=== PATIENT | male | born 1980 ===

== ENCOUNTER 2016-11-30 01:59 | Inpatient (IN) ==
[2016-11-30] MEDS ORDERED: THIAMINE INJ 100 MG, FOLIC ACID INJ 1 MG, MAGNESIUM SULF INJ 2 GM, MULTIVITAMIN INJ 10 ... IV ONE (02:03)
[2016-11-30 02:45] LABS: Basophils % 0.1 % (0.0-0.8); Eosinophils % 0.1 % (0.00-10.9); Hematocrit 18.2 VOL% (42.0-52.0); Immature Granulocytes % 0.7 %; Immature Granulocytes Absolute 0.09 #; Lymphocytes # 1.6 10*3/uL (1.4-4.0); Lymphocytes % 11.8 % (21.2-54.2); Mean Corpuscular HGB Conc 33.5 GM/DL (32-36); Mean Corpuscular Hemoglobin 39 PG (27-34); Mean Corpuscular Volume 115.2 FL (87-102); Mean Platelet Volume 10.9 FL (9.6-12.0); Monocytes # 1.8 10*3/uL (0.11-0.8); Monocytes % 12.7 % (1.7-12.7); Neutrophils # 10.3 10*3/uL (1.4-7.4); Neutrophils % 74.6 % (38.7-73.9); Red Blood Count 1.58 MC/CUMM (3.8-5.5); White Blood Count 13.8 T/CUMM (4-12)
[2016-11-30 02:48] LABS: Platelet Count 65 T/CUMM (130-400)
[2016-11-30 02:49] LABS: ABG Base Excess -16.2 MMOL/L (-2.5-2.5); ABG HCO3 11.8 MMOL/L (20-26); ABG TCO2 10.7 MMOL/L (23-27); Allen Test Positive; Pt O2 Delivery Device Ventilator
[2016-11-30 02:52] LABS: Hemoglobin 6.1 GM/DL (14.0-18.0)
[2016-11-30 02:57] LABS: ABG PH 7.185 (7.35-7.45)
[2016-11-30] MEDS ORDERED: ETOMIDATE 20 MG/10 ML VIAL IV ONE (02:57)
[2016-11-30] MEDS ORDERED: VECURONIUM 10 MG VIAL IV ONE ×2 (02:57→04:30)
[2016-11-30] MEDS ORDERED: SODIUM BICARBONATE 50 MEQ/50 ML SYRINGE IV ONE (02:58)
[2016-11-30] MEDS ORDERED: SODIUM BICARBONATE 50 MEQ/50 ML VIAL IV STA (03:00)
--- NOTE | 2016-11-30 03:09 | Emergency Department Note ---
Conor Jimenez Hilary, am scribing for, and in the presence of, Rudi Ballesteros MD 02:28. Lesli Jimenez Charles R, MD, personally performed the services described in this documentation, ascribed by Roberta Perdomo in my presence, and it is both accurate and complete . Arrival - Arrival Chief Complaint: Altered Mental Status Stated Complaint: altered mental status ED Nursing Triage Note: Patient to room via ems. Patient was transfered from [facility] for cirrhosis. Patient's k+ 1.5. patient does have large brusie to right arm and tigh. Mode of Arrival: Stretcher Limitations: Altered Mental Status Source: Family (Mother), RN Notes Reviewed Time Seen by Provider: 11/30/16 02:03 - History of Present Illness HPI Narrative: Pt is a 36 y/o male brought to the ED via EMS from [facility] for c/ o AMS and Cirrhosis. History limited due to patients AMS but pts mother is in the room and states that he called her around 1000 and she called the ambulance around 1999. Pt does have Cirrhosis of the Liver, his mother reports that he quit drinking but started back up again last month. GCS 7, Discussed code with his mother and she states he is full code. Onset (ago): hour(s) Consistency: constant Severity: severe Allergies/Adverse Reactions: Allergies Allergy/AdvReac Type Severity Reaction Status Date / Time No Known Allergies Allergy Verified 11/30/16 02:05 Home Medications: Home Medications Medication Instructions Recorded Confirmed Type Cyanocobalamin Tab [Vitamin B12 1,000 mcg PO DAILY tablet 08/24/16 Rx Tab] Folic Acid Tab 1 mg PO DAILY tablet 08/24/16 Rx Furosemide Tab [Lasix Tab] 40 mg PO DAILY #30 tablet 08/24/16 Rx Lactulose Liquid [Chronulac] 15 gm PO TID #473 ml 08/24/16 Rx Pantoprazole Tab [Protonix Tab] 40 mg PO DAILY #30 tablet 08/24/16 Rx Potassium Chloride Cap/Tab [K Dur] 20 meq PO DAILY #30 tablet 08/24/16 Rx Rifaximin [Xifaxan] 550 mg PO BID #60 tablet 08/24/16 Rx Spironolactone [Aldactone] 25 mg PO BID #30 tablet 03/02/17 Rx Thiamine Tab [Vitamin B1 Tab] 100 mg PO DAILY tablet 08/24/16 Rx Review of System - Review of System ROS unobtainable: due to mental status Medical,Surgical,& Family Hx - Medical History Gastrointestinal: History of: Liver Problems (chronic alcoholic cirrhosis) - Surgical History Orthopedic Surgeries: Surgical HX of;: Orthopedic Surgery (knee surgery) - Social History Smoking Status: Never smoker Frequency of Alcohol Use: None Type of Drug Use: None Exam Vital Signs: Vital Signs Temperature 98.8 F 11/30/16 02:01 Pulse Rate 129 H 11/30/16 02:01 Respiratory Rate 12 11/30/16 02:15 Blood Pressure 129/61 11/30/16 02:01 O2 Sat by Pulse Oximetry 100 11/30/16 02:01 - General Exam limited due to: level of distress General appearance: in distress, other (Pt is altered) - Head Head exam: Present: atraumatic, normocephalic - Eye Eye exam: Present: scleral icterus - ENT ENT exam: Present: mucous membranes dry, TM's normal bilaterally, other (dryed tongue) - Neck Neck exam: Present: full ROM, trachea midline - Chest Chest inspection: Present: symmetric chest wall rise - Respiratory Respiratory exam: Present: normal lung sounds bilaterally - Cardiovascular Cardiovascular exam: Present: tachycardia, normal heart sounds, JVD (in neck) - Abdominal Exam Abdominal exam: Present: soft, distention (nodular in RUQ), hypoactive bowel sounds - Extremities Exam Extremities exam: Present: full ROM, pedal edema (2+ pedal edema) - Back Exam Back exam: Present: full ROM - Neurological Exam Neurological exam: Present: other (GCS of 7 ). Absent: alert, oriented X3 - Psychiatric Psychiatric exam: Present: agitated - Skin Skin exam: Present: warm, dry, intact, normal color, other (Large oval bruise on rt forearm that is old, and hematoma on upper right thigh) Course Course Narrative: Decision to intubate patient was based on the fact that his GCS was less than 8 patient was combative and altered - Consultations Consultation #1: Hospitalist will admit patient Time: 03:07 Procedures - Central Line Placement Left Femoral MD Prep: mask, gown, gloves Central Line Prep: Chlorhexidine scrub Ultrasound Used for Placement: Yes (Line was checked placement is in the vein artery) Central Line Lumen Inserted: triple Post Procedure: sutured in place, good blood return, all ports aspirated, flushed, capped, sterile dressing applied Patient Tolerated Procedure: well Complications: none, hematoma at puncture site - Intubation sedative: Etomidate Mg Given: 20 paralytic: Vecuronium Mg Given: 10 Laryngoscope: fiber optic video scope ET Tube Size: 7.5 ET Tube Uncuffed: No Tube Secured Depth (cm): 23 Tube Secured Location: lips Tube Placement Confirmation: visualized tube passing through cords, equal breath sounds bilaterally, confirmation detector color change Patient Tolerated Procedure: well, no complications Intubation Complications: none Results - Labs CBC & BMP: 11/30/16 02:30 11/30/16 02:30 Lab Results: I have reviewed the patients labs Labs: Laboratory Tests 11/30/16 11/30/16 02:30 02:40 WBC 13.8 H RBC 1.58 L Hct 18.2 L MCV 115.2 H MCH 39 H Plt Count 65 L Neut % (Auto) 74.6 H Lymph % (Auto) 11.8 L Neut # (Auto) 10.3 H [place] # (Auto) 1.8 H ABG pH 7.185 L* ABG pCO2 29.0 L ABG pO2 235.0 H ABG HCO3 11.8 L ABG Total CO2 10.7 L ABG Base Excess -16.2 L Critical Care Time Total Critical Care Time: 60 Disposition Clinical Impression: Altered mental status, Jaundice, acholuric, Cirrhosis of liver, Thrombocytopenia, Coagulopathy, Symptomatic anemia, Hepatic encephalopathy syndrome, Jaundice, End stage liver disease, Metabolic acidosis Case discussed with: patient, patient's family Disposition: Still a Patient Condition: Critical Time of Disposition: 03:09
[2016-11-30 03:10] LABS: PT Patient Result 34.3 SECS
[2016-11-30 03:19] LABS: Alanine Aminotransferase 43 U/L (16-61); Albumin 2.2 G/DL (3.4-5.0); Alkaline Phosphatase 165 U/L (45-117); Aspartate Amino Transferase 71 U/L (0-37); Blood Urea Nitrogen 8 MG/DL (7-18); Glucose 147 MG/DL (74-106); Magnesium 2.1 MG/DL (1.8-2.4); Sodium 136 MMOL/L (136-145); Total Protein 7.1 G/DL (6.4-8.3)
[2016-11-30 03:21] LABS: Troponin I Only 0.078 NG/ML (0.00-0.045)
[2016-11-30 03:23] LABS: Ammonia 292 UMOL/L (11-32); Potassium 1.8 MMOL/L (3.5-5.1)
[2016-11-30 03:26] LABS: Apearance,Urine Slightly Hazy (Clear); B-Type Natriuretic Peptide 32 PG/ML (2-100); Bacteria,Urine Occasional /HPF (Few); Blood, Urine Moderate mg/dL (Negative); Glucose,Urine (UA) Negative (Negative); Granular Casts,Urine 15 /LPF (0-1); Hyaline Casts,Urine 32 /LPF (0-3); Ketones,Urine Negative (Negative); Mucus,Urine Occasional /LPF (Occasional); Nitrite,Urine Negative (Negative); Protein,Urine 30 MG/DL; RBC,Urine 11 /HPF (0-4); Squamous Epithelial Cell,Urine Occasional /HPF (0-10); Urine Color Amber (Yellow); Urine Specific Gravity 1.014 (1.001-1.035); WBC,Urine 3 /HPF (0-6)
[2016-11-30 03:28] LABS: Bilirubin,Urine Moderate mg/dL (Negative)
[2016-11-30] MEDS ORDERED: SODIUM CHLORIDE 0.9% 1,000 ML IV STA (03:37)
[2016-11-30 03:54] LABS: Barbiturates Screen,Urine Negative (Negative); Benzodiazepines Screen,Urine Negative (Negative); Cannabinoid Screen,Urine Negative (Negative); Opiate Screen,Urine Negative (Negative); Phencyclidine Screen,Urine Negative (Negative)
--- NOTE | 2016-11-30 04:01 | Hospitalist History & Physical ---
Assessment and Plan (1) Hypokalemia Status: Acute Current Visit: Yes (2) Altered mental status Status: Acute Current Visit: Yes (3) End stage liver disease Status: Acute Current Visit: Yes (4) Hepatic encephalopathy Status: Acute Current Visit: Yes (5) Jaundice Status: Acute Current Visit: Yes (6) Jaundice, acholuric Status: Acute Current Visit: Yes (7) Metabolic acidosis Status: Acute Current Visit: Yes (8) Thrombocytopenia Status: Acute Current Visit: Yes (9) Cirrhosis of liver Status: Chronic Assessment and plan: Patient is a critically ill patient. We will need to replete his potassium give him some bicarb. Provide him with fluids. Transfuse him with FFP. He has a mild bump in his creatinine. His total bili though has gone down from 3 months ago. Ammonia levels are really elevated. I am unsure if this patient has varices. Reluctant to have a NG tube placed will need to use lactulose enemas. I do consider the likelihood of him surviving this hospitalization low. I informed his mother of that. Will need to transfuse and monitor his blood counts. Will consult both GI and pulmonary for their support Current Visit: Yes Qualifiers: Hepatic cirrhosis type: alcoholic cirrhosis History of Present Illness Chief complaint: Altered mental status History of present illness: Mr. Mariscal is a 36 year old male with past medical history significant for liver cirrhosis from alcohol abuse presents as a transfer from [facility]. Patient was diagnosed with liver cirrhosis approximately 3 years ago. Patient has drank off and on during this time. Patient's mother reports that he has not had in the past month. Patient's mother reports that he was fine on Sunday. He was his normal self there have been no problems. Then Sunday she said that she noted that he was texting her and not making any sense. She gave him a call and he was confused. She called EMS. When they got there his confusion seemed to be doing okay. She gave him some lactulose and he did not want to go to [facility] and they left. She had to go on to work. She told him to drink some more lactulose. When she got home it was apparent that he was even more confused. EMS was called this time and he was taken up [facility]. When they were treating him at [facility] he became combative and was given Haldol. He rates our hospital. He was pretty much sedated. In order to protect his airway he was placed on the ventilator and intubated by the ER physician. Home Medications Medication Instructions Recorded Confirmed Type Cyanocobalamin Tab [Vitamin B12 1,000 mcg PO DAILY tablet 08/24/16 Rx Tab] Folic Acid Tab 1 mg PO DAILY tablet 08/24/16 Rx Furosemide Tab [Lasix Tab] 40 mg PO DAILY #30 tablet 08/24/16 Rx Lactulose Liquid [Chronulac] 15 gm PO TID #473 ml 08/24/16 Rx Pantoprazole Tab [Protonix Tab] 40 mg PO DAILY #30 tablet 08/24/16 Rx Potassium Chloride Cap/Tab [K Dur] 20 meq PO DAILY #30 tablet 08/24/16 Rx Rifaximin [Xifaxan] 550 mg PO BID #60 tablet 08/24/16 Rx Spironolactone [Aldactone] 25 mg PO BID #30 tablet 08/24/16 Rx Thiamine Tab [Vitamin B1 Tab] 100 mg PO DAILY tablet 08/24/16 Rx Allergies Allergy/AdvReac Type Severity Reaction Status Date / Time No Known Allergies Allergy Verified 11/30/16 02:05 Medical,Surgical,& Family Hx - Medical History Gastrointestinal: History of: Liver Problems (chronic alcoholic cirrhosis) - Surgical History Orthopedic Surgeries: Surgical HX of;: Orthopedic Surgery (knee surgery) - Family History Family History: Reports;: Family Diabetes - Social History Smoking Status: Never smoker Frequency of Alcohol Use: Occasionally Type of Drug Use: None ROS unobtainable: due to mental status Exam - Constitutional Vitals: Period Temp Pulse Resp BP Sys/Cotto Pulse Ox Last 24 Hr 98.8 F-98.8 F 129-129 12-24 129-129/61-61 100 - General General appearance: Patient is is altered and on the ventilator - Head Head exam: Present: atraumatic, normocephalic - Eye Eye exam: Present: scleral icterus pupils sluggish - ENT ENT exam: Present: mucous membranes dry, TM's normal bilaterally, ET-tube in place - Neck Neck exam: Present: full ROM, trachea midline - Chest Chest inspection: Present: symmetric chest wall rise - Respiratory Respiratory exam: Present: normal lung sounds bilaterally - Cardiovascular Cardiovascular exam: Present: tachycardia, normal heart sounds, JVD (in neck) - Abdominal Exam Abdominal exam: Present: soft, distention ,hypoactive bowel sounds - Extremities Exam Extremities exam: Present: full ROM, pedal edema (2+ pedal edema) - Back Exam Back exam: Present: full ROM - Neurological Exam Neurological exam: Present: Unable to assess - Psychiatric Psychiatric exam: Present: agitated - Skin Skin exam: Present: warm, dry, intact, normal color, other various bruising of various stages were noted Results - Labs CBC & BMP: 11/30/16 02:30 11/30/16 02:30
[2016-11-30] MEDS ORDERED: ALBUTEROL 2.5 MG/3 ML NEB RESP TX PRN (04:09)
[2016-11-30] MEDS ORDERED: SODIUM CHLORIDE 0.9% 250 ML IV PRN (04:09)
[2016-11-30] MEDS ORDERED: VECURONIUM 10 MG VIAL IV STA (04:32)
[2016-11-30 04:34] LABS: Burr Cells 4+; Platelet Estimate Decreased; Polychromasia Few
[2016-11-30] MEDS ORDERED: SODIUM CHLORIDE 0.9% 500 ML IV STA (04:38)
[2016-11-30] MEDS ORDERED: SODIUM BICARB INJ 150 MEQ in STERILE WATER INJ 850 ML IV SCH (05:00)
--- NOTE | 2016-11-30 05:14 | EKG Report ---
Stationary ECG Study [facility] ER Test Date: 11/30/2016 3:55:16 AM Pat Name: GHASSAN BYRNES Department: Room: Gender: M Climatologist: : 1980 Requested by: Rudi Camejo Order Number: [id number] Reading MD: AYAZ AGUSTIN Intervals [place] Rate: 120 P: 3 [place]: 101 QRS: 68 QRSD: 102 T: -69 QT: 357 QTc: 428 Interpretive Statements SINUS TACHYCARDIA WITH SHORT IL INTERVAL POSSIBLE INFERIOR MYOCARDIAL INFARCTION, OF INDETERMINATE AGE WITH POSTERIOR EXTENSION MODERATE T-WAVE ABNORMALITY, CONSIDER ANTEROLATERAL ISCHEMIA Electronically Signed On 11-30-16 16:11:23 CDT by AYAZ AGUSTIN [email or web address]
[2016-11-30 05:48] LABS: Prolactin 99.9 NG/ML
[2016-11-30] MEDS ORDERED: POTASSIUM CHLORIDE RIDER 10 MEQ in PREMIX 1 EACH IV SCH ×2 (06:00→10:00)
[2016-11-30] MEDS ORDERED: POTASSIUM CHLORIDE RIDER 200 ML IV ONE (06:10)
--- NOTE | 2016-11-30 06:25 | CT Report ---
CT head/brain wo con Indication: Mental status changes Comparison: None Technique: Multiple axial tomographic images of the brain were obtained without the use of intravenous contrast. Findings: Midline structures are nondisplaced. There is no evidence of acute intracranial hemorrhage or hydrocephalus. Mild global volume loss present. Mild periventricular and subcortical hypoattenuation noted which is nonspecific. Considerations include demyelinating process, chronic microvascular ischemic change, and vasculitis. Small fluid within the right maxillary sinus as well as significant opacification of the right sphenoid and frontal sinuses. IMPRESSION: Paranasal sinus disease with small fluid within the right maxillary sinus which could reflect an acute component. No definite acute abnormality otherwise. Mild global volume loss which is considered advanced for patient age. Mild periventricular and subcortical hypoattenuation noted which is nonspecific. Considerations include demyelinating process, chronic microvascular ischemic change, and vasculitis. Preliminary report was issued by [facility]. The CT exam was performed using one or more of the following dose reduction techniques: Automated exposure control, adjustment of the mA and/or kV according to patient size, or use of iterative reconstruction technique. PROCEDURE INTERPRETED AT [facility] DEPARTMENT OF RADIOLOGY Final Report Signed by: Dr Raheem Miller
[2016-11-30 07:23] LABS: ABG Base Excess -7.8 MMOL/L (-2.5-2.5); ABG PCO2 31.2 MM HG (35-48); ABG PH 7.348 (7.35-7.45); ABG TCO2 16.4 MMOL/L (23-27); Pt O2 Delivery Device Ventilator
[2016-11-30] MEDS: POTASSIUM CHLORIDE RIDER 20 MEQ in PREMIX 1 EACH IV SCH ×6 (07:23→22:50)
--- NOTE | 2016-11-30 07:23 | XRay Report ---
XR femur RT Indication: Hematoma/contusion Comparison: None Technique: Frontal and lateral views of the right femur Findings: No acute fracture or dislocation demonstrated. Postsurgical change consistent with right ACL repair demonstrated. Mild tricompartmental degenerative change of the knee present. IMPRESSION: As above. PROCEDURE INTERPRETED AT [facility] DEPARTMENT OF RADIOLOGY Final Report Signed by: Dr Raheem Miller
[2016-11-30] MEDS: LACTULOSE 160 GM/240 ML BOTTLE RECTAL SCH ×3 (07:24→22:30)
--- NOTE | 2016-11-30 07:34 | XRay Report ---
XR forearm RT Indication: Contusion Comparison: None Technique: Frontal and lateral views of the right forearm Findings: No acute fracture or dislocation demonstrated. Linear lucency demonstrated within the cortex of the distal ulnar diaphysis which measures approximately 1 cm most likely reflects a benign bone lesion as this has a nonaggressive appearance. IMPRESSION: As above. PROCEDURE INTERPRETED AT [facility] DEPARTMENT OF RADIOLOGY Final Report Signed by: Dr Raheem Miller
--- NOTE | 2016-11-30 07:45 | Hospitalist Progress Note ---
Hospitalist: Subjective Interval history: Patient blood pressure is dropping and has been started on Levophed. He is currently receiving his second blood unit of blood out of 4 ordered units. Patient is encephalopathic still. His temperature has dropped and he has been placed on heating blanket. Exam - Constitutional Vitals: Period Temp Pulse Resp BP Sys/Cotto Pulse Ox Last 24 Hr 96.0 F-98.8 F 96-129 12-24 59-129/18-61 100-100 Exam: General :intubated and sedated. Chronically ill-appearing HEENT :pupils are reactive to light and equal, icteric sclera noted, ET tube in place so unable to visualize his posterior oropharynx; Nares are patent no discharge or epistaxis noted; Neck: Supple no lymphadenopathy or JVD noted Cardiovascular: Tachycardic but regular rhythm, 1/6 systolic murmur Lungs: Mostly clear anteriorly of upper lobes with scattered rhonchi, nonlabored Abdomen: Soft, distended, hypoactive bowel sounds, difficult to assess for hepatosplenomegaly or masses given his body habitus EXT: Warm and well-perfused without any clubbing or cyanosis. He is starting to get trace edema diffusely Neuro: Unable to fully assess given the sedation Results - Labs CBC & BMP: 11/30/16 02:30 11/30/16 11:24 - Impressions (1) Acute metabolic encephalopathy possibly due to hyperammonemia (hepatic encephalopathy) +/- possibly due to seizures Status: Acute Current Visit: Yes - 11/30 CT head showed paranasal sinus disease with small fluid within the right maxillary sinus which could reflect an acute component. No definite acute abnormality otherwise. Mild global volume loss which is considered advanced for patient age. Mild periventricular and subcortical hypoattenuation noted which is nonspecific. Considerations include demyelinating process, chronic microvascular ischemic change, and vasculitis. - Prolactin was 99. RPR was not reactive - Neuro checks - Neurology consult if no improvement with correction of metabolic issues - on lactulose rectally. Monitor ammonia levels (2) Acute hypoxic respiratory failure -Vent support. Bronchodilators. Pulm to see. Serial CXR and ABG (3) Hypokalemia Status: Acute Current Visit: Yes - replacing. Mg and Phos are normal - Monitor on telemetry (4) End stage liver disease/ cirrhosis Status: Acute Current Visit: Yes - GI to see. Receiving FFP (5) Metabolic acidosis Status: Acute Current Visit: Yes -bicarbonate drip ordered. Check lactic acid (7) Thrombocytopenia suspected due to liver disease Status: Acute Current Visit: Yes - transfuse as needed. Check DIC panel; check haptoglobin and LDH r/o TTP (8) Profound anemia likely due to chronic disease and sequestration Status: Chronic - transfusing. Recheck (9) Shock- ? hepatorenal syndrome vs. sepsis vs. obstructive vs. cardiogenic - start Levophed. Check cortisol level. Check Blood cultures, urine cultures and sputum cultures. Start empiric antibiotics. ppx: PPI/ SCDS Discussed with nurse. I have spent 44 minutes with this patient.
--- NOTE | 2016-11-30 07:46 | XRay Report ---
XR chest 1V portable Indication: Altered mental status Comparison: Chest x-ray dated November 29, 2016 Technique: Single frontal view of the chest. Findings: Endotracheal tube tip at the clavicular level. The cardiomediastinal silhouette is stable in configuration. Low lung volumes with bronchovascular crowding. Mild bibasilar atelectasis. Visualized osseous and surrounding soft tissue structures appear grossly unchanged. IMPRESSION: As above. PROCEDURE INTERPRETED AT [facility] DEPARTMENT OF RADIOLOGY Final Report Signed by: Dr Raheem Miller
[2016-11-30] MEDS ORDERED: POTASSIUM CHLORIDE RIDER 100 ML IV ONE (08:16)
[2016-11-30] MEDS: PANTOPRAZOLE 40 MG VIAL IV SCH ×2 (08:51→22:30)
[2016-11-30] MEDS: NOREPINEPHRINE 8 MG in SODIUM CHLORIDE 0.9% 242 ML IV SCH ×2 (09:49→16:43)
[2016-11-30 10:28] LABS: Phosphorous 3.4 MG/DL (2.5-4.9)
[2016-11-30 10:34] LABS: Potassium 1.9 MMOL/L (3.5-5.1)
--- NOTE | 2016-11-30 10:38 | Pulmonology Consult Note ---
History of Present Illness Chief complaint: Mechanical ventilation. Hepatic coma. Anemia History of present illness: Mr. Mariscal is a 36 year old male. I been asked to see him in pulmonary consultation for management of mechanical ventilation and pulmonary problems. This patient was admitted with severe anemia and altered mental status hepatic encephalopathy and a number of other problems. He required intubation mechanical ventilation. Chest x-ray 11/30/2016. My interpretation. Heart is in the mid range in size. Pulmonary arteries are top normal in size are benign calcifications both hilar areas mediastinum is probably normal endotracheal tube is in good position. There are increased interstitial markings in the medial posterior basal segment of the right lower lung and in the posterior basal segment of the left lower lung. There is slight perihilar fullness. Suctioned through the endotracheal tube so far has revealed nothing to suggest gastric contents but this is a real possibility. The patient is comatose. Because of this the remainder of history of review of systems is negative. Allergies. None Home medicines. See below Past history. Chronic alcoholic cirrhosis. Previous knee surgery. History of anemia. History of abdominal wall muscle hematoma. History of ascites. Alcoholism. Family history. Positive for diabetes Social history. History of alcohol abuse. ABGs. Mechanical ventilation. FiO2 50%. PH is 7.35. PCO2 is 31.2. PO2 is 222. Bicarb is 18. Lab. Potassium was low at 1.8. Sodium and chloride are normal. Magnesium is normal. Creatinine is 2.90 with a BUN of 8. H&H is 6.1/18.2 with elevated indices. White count is 13,865 611 lymphs and 13 monos. Platelets are 65,000. Total bilirubin is 9.4. Alkaline [place] is elevated 165. AST is elevated at 71. ALT is normal at 43. Ammonia level is 292. Natruretic peptide is 32. Urinalysis shows no evidence of infection. Toxicology. Neck Serology. Negative for hepatitis a hepatitis B hepatitis C and syphilis Physical exam. Vital signs. See below. Neurologic. Comatose. Face is symmetrical. Lips and tongue are probably normal. Neck. Symmetrical. No meningismus. Lymphatics. No submandibular cervical supraclavicular or epitrochlear adenopathy. Chest. Coarse large airway congestion. Heart. No gallop. Abdomen. Nondistended. Only rare bowel sounds Lower extremities. Chronic edema. The remainder the physical exam is negative. Impression. 1. Alcoholic cirrhosis of the liver with acute on chronic liver failure resulting in altered mental status 2. Severe anemia. Note past history of B12 deficiency 3. Hypo-Tara anemia. 4. History of alcoholism 5. Thrombocytopenia 6. See past history Plan. 1. Mechanical ventilation with weaning protocol and physical therapy protocol 2. Daily chest x-ray and ABGs. 3. Daily lab 4. See orders Home Medications Medication Instructions Recorded Confirmed Type Cyanocobalamin Tab [Vitamin B12 1,000 mcg PO DAILY tablet 08/24/16 Rx Tab] Folic Acid Tab 1 mg PO DAILY tablet 08/24/16 Rx Furosemide Tab [Lasix Tab] 40 mg PO DAILY #30 tablet 08/24/16 Rx Lactulose Liquid [Chronulac] 15 gm PO TID #473 ml 08/24/16 Rx Pantoprazole Tab [Protonix Tab] 40 mg PO DAILY #30 tablet 08/24/16 Rx Potassium Chloride Cap/Tab [K Dur] 20 meq PO DAILY #30 tablet 08/24/16 Rx Rifaximin [Xifaxan] 550 mg PO BID #60 tablet 08/24/16 Rx Spironolactone [Aldactone] 25 mg PO BID #30 tablet 08/24/16 Rx Thiamine Tab [Vitamin B1 Tab] 100 mg PO DAILY tablet 08/24/16 Rx Allergies Allergy/AdvReac Type Severity Reaction Status Date / Time No Known Allergies Allergy Verified 11/30/16 02:05 Exam (Pulmonay) H&P - Constitutional Vitals: Period Temp Pulse Resp BP Sys/Cotto Pulse Ox Last 24 Hr 95.1 F-98.8 F 96-129 12-24 59-129/18-61 100-100 Medical,Surgical,& Family Hx - Medical History Gastrointestinal: History of: Liver Problems (chronic alcoholic cirrhosis) Musculoskeletal: History of: Back/Neck Problems - Surgical History Orthopedic Surgeries: Surgical HX of;: Orthopedic Surgery (knee surgery) - Family History Family History: Reports;: Family Diabetes (mother) - Social History Smoking Status: Never smoker Frequency of Alcohol Use: Occasionally Type of Drug Use: None Results - Labs CBC & BMP: 11/30/16 02:30 11/30/16 02:30
[2016-11-30] MEDS: POTASSIUM CHLORIDE RIDER 20 MEQ in PREMIX 1 EACH IV PRN ×4 (10:40→15:54)
--- NOTE | 2016-11-30 11:15 | Gastrointestinal Consult Note ---
<Lucrecia Alvarado - Last Filed: 11/30/16 11:09> Assessment and Plan (1) Cirrhosis of liver Status: Chronic Assessment and plan: 11/30-admitted with altered mental status, history of alcoholic cirrhosis. Findings of thrombocytopenia, anemia, and hypokalemia on admission. On ventilator and sedation at this time. Received total of 3 units of packed red blood cells and to be transfused fresh frozen plasma. Plan an addendum to follow by Dr. Duarte. Current Visit: Yes Qualifiers: Hepatic cirrhosis type: alcoholic cirrhosis History of Present Illness Chief complaint: Altered mental status History of present illness: Mr. Mariscal is a 36 year old male who was admitted to the hospital early this morning after transfer from [facility] with reports of altered mental status. Patient is unable to provide any information and no family available at time of visit. Information is obtained from chart review. Patient reportedly was doing well on Sunday however patient's mother states she began receiving text messages from him on yesterday that did not make sense. When she called him on the phone he was noted to be confused and she called the ambulance. Patient was doing better once EMS arrived and did not want to be transported. Patient's mother went back to work however when she returned home he was more confused and EMS returned and transferred patient to [facility]. At that time patient was very combative and was given Haldol in which he became very sedated and required intubation. Upon arrival to our facility he was found to have metabolic acidosis, hypokalemia, thrombocytopenia, and severe anemia. He has a history of alcoholic cirrhosis in which he was diagnosed 3 years ago. According to the record, patient continued to drink off and on since diagnosis but stopped over the past month. On admission patient was found to have a hemoglobin of 6.1, platelet count 65, potassium 1.8, bilirubin 9.4, ammonia at 292, albumin 2.2, INR 3.0. He was last seen in our facility in August of this year with symptomatic anemia however it was felt to be related to a fall and findings of abdominal wall hematoma. He received 9 units of packed cells and 6 units of fresh frozen during that hospital stay. Patient is noted to take Aldactone, Lasix, Xifaxan and Chronulac at home however uncertain as to his compliance with these medications. Home Medications Medication Instructions Recorded Confirmed Type Cyanocobalamin Tab [Vitamin B12 1,000 mcg PO DAILY tablet 08/24/16 Rx Tab] Folic Acid Tab 1 mg PO DAILY tablet 08/24/16 Rx Furosemide Tab [Lasix Tab] 40 mg PO DAILY #30 tablet 08/24/16 Rx Lactulose Liquid [Chronulac] 15 gm PO TID #473 ml 08/24/16 Rx Pantoprazole Tab [Protonix Tab] 40 mg PO DAILY #30 tablet 08/24/16 Rx Potassium Chloride Cap/Tab [K Dur] 20 meq PO DAILY #30 tablet 08/24/16 Rx Rifaximin [Xifaxan] 550 mg PO BID #60 tablet 08/24/16 Rx Spironolactone [Aldactone] 25 mg PO BID #30 tablet 08/24/16 Rx Thiamine Tab [Vitamin B1 Tab] 100 mg PO DAILY tablet 08/24/16 Rx Allergies Allergy/AdvReac Type Severity Reaction Status Date / Time No Known Allergies Allergy Verified 11/30/16 02:05 Medical,Surgical,& Family Hx - Medical History Gastrointestinal: History of: Liver Problems (chronic alcoholic cirrhosis) Musculoskeletal: History of: Back/Neck Problems - Surgical History Orthopedic Surgeries: Surgical HX of;: Orthopedic Surgery (knee surgery) - Family History Family History: Reports;: Family Diabetes (mother) - Social History Smoking Status: Never smoker Frequency of Alcohol Use: Occasionally Type of Drug Use: None ROS unobtainable: due to endotracheal tube Exam - Constitutional Vitals: Period Temp Pulse Resp BP Sys/Cotto Pulse Ox Last 24 Hr 94.8 F-98.8 F 96-129 12-24 59-129/18-61 100-100 General appearance: normal weight, no acute distress - Head Head exam: Present: normal inspection, normocephalic - Eye Eye exam: Present: scleral icterus, other (Lids and conjunctive are unremarkable ) - ENT ENT exam: Present: normal exam, normal oropharynx - Neck Neck exam: Present: normal inspection - Respiratory Respiratory exam: Present: clear to auscultation bilaterally. Absent: rales, rhonchi, wheezes - Cardiovascular Cardiovascular exam: Present: regular rate and rhythm. Absent: diastolic murmur , JVD, systolic murmur - GI/Abdominal GI/Abdominal exam: Present: normal bowel sounds, soft. Absent: ascites, distended, mass, organomegaly, tenderness - Extremities Exam Extremities exam: Present: normal inspection - Back Exam Back exam: Present: normal inspection - Neurological Exam Neurological exam: Present: altered - Psychiatric Psychiatric exam: Present: other - Skin Skin exam: Present: other (Jaundice) Results - Labs CBC & BMP: 11/30/16 02:30 11/30/16 09:37 Lab Results: I have reviewed the past 24 hour labs <Luke Duarte - Last Filed: 11/30/16 18:57> History of Present Illness History of present illness: Mr. Mariscal is a 36 year old male Exam - Constitutional Vitals: Period Temp Pulse Resp BP Sys/Cotto Pulse Ox Last 24 Hr 92.9 F-141 F 96-146 12-24 59-129/18-77 100-100 Results - Labs CBC & BMP: 11/30/16 15:30 11/30/16 11:24
[2016-11-30] MEDS: ALBUMIN 25% 25 GM in PREMIX 1 EACH IV SCH ×2 (11:29→19:41)
[2016-11-30] MEDS: LORazepam INJ 40 MG in DEXTROSE 5% 30 ML IV SCH ×2 (11:43→23:32)
[2016-11-30 12:04] LABS: Albumin 1.6 G/DL (3.4-5.0); Calcium 7.1 MG/DL (8.5-10.1); Phosphorous 3.2 MG/DL (2.5-4.9)
[2016-11-30 12:06] LABS: Potassium 2.5 MMOL/L (3.5-5.1)
[2016-11-30] MEDS ORDERED: VANCOMYCIN INJ 1,500 MG in SODIUM CHLORIDE 0.9% 500 ML IV ONE (15:00)
[2016-11-30 15:16] LABS: Haptoglobin < 31.0 MG/DL (30-200)
[2016-11-30 15:47] LABS: Apearance,Urine CLOUDY (Clear); Blood, Urine Large mg/dL (Negative); Glucose,Urine (UA) Negative (Negative); Ketones,Urine Negative (Negative); Mucus,Urine Many /LPF (Occasional); Nitrite,Urine Negative (Negative); Protein,Urine 100 MG/DL; RBC,Urine 370 /HPF (0-4); Squamous Epithelial Cell,Urine Occasional /HPF (0-10); Urine Color Amber (Yellow); Urine Specific Gravity 1.018 (1.001-1.035); WBC,Urine 1650 /HPF (0-6)
[2016-11-30 15:48] LABS: Bilirubin,Urine Small mg/dL (Negative)
[2016-11-30] MEDS: DOPamine 800 MG/250 ML PREMIX IV SCH ×2 (15:56→17:18)
[2016-11-30 16:10] LABS: INR 2.9
[2016-11-30 16:14] LABS: PT Patient Result 32.6 SECS
[2016-11-30 16:15] LABS: Fibrinogen Quant Value < 50 MG% (200-400)
[2016-11-30 16:29] LABS: Hematocrit 18.8 VOL% (42.0-52.0); Hemoglobin 6.7 GM/DL (14.0-18.0)
[2016-11-30] MEDS: PIPERACILLIN/TAZOBACTAM 3,375 MG in SODIUM CHLORIDE 0.9% 100 ML IV SCH ×2 (16:36→22:48)
[2016-11-30] MEDS ORDERED: NOREPINEPHRINE 4 MG/4 ML VIAL IV ONE (16:39)
--- NOTE | 2016-11-30 17:04 | Cardiology Consult Note ---
Assessment and Plan - Time spent with patient Time spent with patient: Greater than 30 minutes (1) Elevated troponin Status: Acute Assessment and plan: SEE PLAN OF CARE LISTED BELOW Current Visit: Yes (2) Murmur, cardiac Status: Acute Assessment and plan: SEE PLAN OF CARE LISTED BELOW Current Visit: Yes (3) Hematoma of abdominal wall Status: Acute Assessment and plan: SEE PLAN OF CARE LISTED BELOW Current Visit: No Qualifiers: Encounter type: initial encounter Qualified Code(s): S30.1XXA - Contusion of abdominal wall, initial encounter (4) Jaundice, acholuric Status: Acute Assessment and plan: SEE PLAN OF CARE LISTED BELOW Current Visit: Yes (5) Symptomatic anemia Status: Acute Assessment and plan: SEE PLAN OF CARE LISTED BELOW Current Visit: Yes (6) Cirrhosis of liver Status: Chronic Assessment and plan: SEE PLAN OF CARE LISTED BELOW Current Visit: Yes Qualifiers: Hepatic cirrhosis type: alcoholic cirrhosis (7) Thrombocytopenia Status: Acute Assessment and plan: SEE PLAN OF CARE LISTED BELOW Current Visit: Yes (8) Coagulopathy Status: Acute Assessment and plan: SEE PLAN OF CARE LISTED BELOW Current Visit: Yes (9) Altered mental status Status: Acute Assessment and plan: SEE PLAN OF CARE LISTED BELOW Current Visit: Yes (10) End stage liver disease Status: Acute Assessment and plan: SEE PLAN OF CARE LISTED BELOW Current Visit: Yes (11) Hypokalemia Status: Acute Assessment and plan: SEE PLAN OF CARE LISTED BELOW Current Visit: Yes History of Present Illness - Data of Consult Patient: new to practice Consult date: 11/30/16 Requesting Physician: Makenna Bowie - Consult Narrative Reason for consult: Elevated troponin History of present illness: 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 GRAY Patient is being seen in the CCU. He is intubated, sedated. The majority of this information is taken from staff and medical records as there is no family present. Mr. Mariscal, 36ChM, without a known history of cardiac disease, never having seen a stucco worker prior to this admission. Past medical history includes liver cirrhosis from alcohol abuse. Patient presented to the emergency department at [facility] November 30, 2016 with altered mental status. Apparently, patient was diagnosed with liver cirrhosis approximately 3 years ago. He has been drinking on and off during this time. Patient's mother reports he has not been drinking in the past month. She had been communicating with her son via text when he began "not make sense." Eventually, patient was taken to [facility] where he became combative and was given Haldol. When he arrived to our institution, he was intubated in order to protect his airway. Patient is critically ill. He is coagulopathic and receiving FFP this time. He is anemic with a hemoglobin and hematocrit of 6.7 and 18.8 respectively. Platelet count is 54. Initially, potassium was 1.8 and he is on the potassium replacement protocol. Most recent potassium is 2.5. Ammonia levels are elevated. NG tube is being avoided as the patient may have varices. Troponin is noted to be 0.078 and 0.140. EKG is abnormal but does not reflect STEMI. At this time, will continue to monitor the patient closely. Due to the patient' s critically ill state, he is not a candidate for invasive workup. I will order an echocardiogram for tomorrow as the patient does have a murmur. Otherwise, we have little to add at this time. ASSESSMENT/PLAN: 1. CIRRHOSIS OF LIVER - continue current plan of care. 2. AMS - continue current plan of care 3. ANEMIA - following hemoglobin and hematocrit closely. Currently receiving transfusion 4. THROMOBOCYTOPENIA - continue to monitor platelet count close 5. COAGULOPATHIC STATE - multiple areas bleeding. Hematomas noted bilaterally in both groins. Obviously, not a candidate for anticoagulation such as Lovenox or aspirin. 6. HYPOKALEMIA - currently on the potassium replacement protocol. 7. ALCOHOLISM - continue current plan of care 8. CARDIAC MURMUR - echo tomorrow if the patient survives the night 9. RENAL FAILURE - uncertain if this is acute on chronic however he is currently stage III. 10. ELEVATED TROPONIN -we will follow this routinely. He is not a candidate for invasive workup due to his multiple comorbidities. Continue current plan of care. CC: Makenna Bowie MD - Home Medications and Allergies Home Medications: Home Medications Medication Instructions Recorded Confirmed Type Cyanocobalamin Tab [Vitamin B12 1,000 mcg PO DAILY tablet 08/24/16 Rx Tab] Folic Acid Tab 1 mg PO DAILY tablet 08/24/16 Rx Furosemide Tab [Lasix Tab] 40 mg PO DAILY #30 tablet 08/24/16 Rx Lactulose Liquid [Chronulac] 15 gm PO TID #473 ml 08/24/16 Rx Pantoprazole Tab [Protonix Tab] 40 mg PO DAILY #30 tablet 08/24/16 Rx Potassium Chloride Cap/Tab [K Dur] 20 meq PO DAILY #30 tablet 08/24/16 Rx Rifaximin [Xifaxan] 550 mg PO BID #60 tablet 08/24/16 Rx Spironolactone [Aldactone] 25 mg PO BID #30 tablet 08/24/16 Rx Thiamine Tab [Vitamin B1 Tab] 100 mg PO DAILY tablet 08/24/16 Rx Allergies/Adverse Reactions: Allergies Allergy/AdvReac Type Severity Reaction Status Date / Time No Known Allergies Allergy Verified 11/30/16 02:05 ROS unobtainable: due to endotracheal tube, due to mental status Medical,Surgical,& Family Hx - Medical History Cardio: No history of: CAD, Hypertension, DE Gastrointestinal: History of: Liver Problems (chronic alcoholic cirrhosis) Musculoskeletal: History of: Back/Neck Problems - Surgical History Orthopedic Surgeries: Surgical HX of;: Orthopedic Surgery (knee surgery) - Family History Family History: Reports;: Family Diabetes (mother) - Social History Smoking Status: Never smoker Frequency of Alcohol Use: Occasionally Type of Drug Use: None Physical Examination Vital Signs Temp Pulse Resp BP Pulse Ox 98.8 F 129 H 24 129/61 100 11/30/16 02:01 11/30/16 02:01 11/30/16 02:01 11/30/16 02:01 11/30/16 02:01 General: [Appears critically ill. Intubated ] HEENT: [Normocephalic, atraumatic. Mucous membranes moist. No jaundice noted. Conjunctiva moist and clear, sclerae anicteric] Neck: Unable to assess for JVD due to habitus. No thyromegaly or lymphadenopathy noted. No carotid bruit appreciated Cardiac: [Fast rate, regular rhythm. [III/IV HSM heard best at 2ICS left. . Lungs: [Rhonchi noted throughout. Symmetrical chest wall movements noted. Abdomen: Soft, bowel sounds normoactive. Nontender and nondistended. No abdominal bruit or thrill noted. No masses noted. Musculoskeletal: No fluid collection. Decreased range of motion is noted. Extremities: No clubbing, cyanosis noted. [ General edema 1+] Upper extremity pulses 2+. Lower extremity pulses 1+. Capillary refill less than 3 seconds. Skin: No unusual lesions or rashes. No skin breakdown appreciated. Neuro: Sedated. No essential tremor is appreciated. Result/EKG - Labs CBC & BMP: 11/30/16 15:30 11/30/16 11:24 Lab Results: I have reviewed the past 24 hour labs Labs: Laboratory Results - last 24 hr 11/30/16 11/30/16 11/30/16 02:30 02:30 02:30 WBC 13.8 H RBC 1.58 L Hgb 6.1 L* Hct 18.2 L MCV 115.2 H MCH 39 H MCHC 33.5 RDW 17.0 Plt Count 65 L MPV 10.9 Neut % (Auto) 74.6 H Lymph % (Auto) 11.8 L [place] % (Auto) 12.7 Eos % (Auto) 0.1 Baso % (Auto) 0.1 Neut # (Auto) 10.3 H Lymph # (Auto) 1.6 [place] # (Auto) 1.8 H Eos # (Auto) 0.0 Baso # (Auto) 0.0 Immature Gran % 0.7 Nucleated RBC % 0.0 Immature Gran # 0.09 Nucleated RBCs # 0.00 Platelet Estimate Decreased Polychromasia Few Karina Cells 4+ Haptoglobin INR 3.0 PT Patient/Control Mix 34.3 D Fibrinogen D-Dimer, Quantitative Circ Anticoag PTT Plt Func Screen - ADP Plt Func Scrn - Epineph ABG pH ABG pCO2 ABG pO2 ABG HCO3 ABG Total CO2 ABG O2 Saturation ABG Base Excess FiO2 Sodium Potassium Chloride Carbon Dioxide Anion Gap BUN Creatinine GFR Calculation BUN/Creatinine Ratio Glucose Calculated Osmolality Lactic Acid Calcium Phosphorus Magnesium Total Bilirubin AST ALT Alkaline Phosphatase Ammonia Lactate Dehydrogenase Troponin I B-Natriuretic Peptide Total Protein Albumin Globulin Albumin/Globulin Ratio Prolactin Random Cortisol Urine Color Linda Urine Appearance Slightly hazy Urine pH 5.0 Ur Specific [place] 1.014 Urine Protein 30 Urine Glucose (UA) Negative Urine Ketones Negative Urine Blood Moderate Urine Nitrate Negative Urine Bilirubin Moderate H Urine Urobilinogen 4.0 H Urine Leukocytes Negative Urine RBC 11 Urine WBC 3 Urine WBC Clumps Ur Squamous Epith Cells Occasional Urine Bacteria Occasional Hyaline Casts 32 Granular Casts 15 Urine Mucus Occasional Ur Culture Indicated? Not indicated Urine Opiates Screen Ur Barbiturates Screen Ur Phencyclidine Scrn U Amphetamine/Methamph U Benzodiazepines Scrn U Cocaine Metab Screen U Cannabinoids Screen Serum Alcohol Treponema pallidum IgG Blood Type Antibody Screen Crossmatch Blood Bank Comment 11/30/16 11/30/16 11/30/16 02:30 02:30 02:30 WBC RBC Hgb Hct MCV MCH MCHC RDW Plt Count MPV Neut % (Auto) Lymph % (Auto) [place] % (Auto) Eos % (Auto) Baso % (Auto) Neut # (Auto) Lymph # (Auto) [place] # (Auto) Eos # (Auto) Baso # (Auto) Immature Gran % Nucleated RBC % Immature Gran # Nucleated RBCs # Platelet Estimate Polychromasia Karina Cells Haptoglobin INR PT Patient/Control Mix Fibrinogen D-Dimer, Quantitative Circ Anticoag PTT Plt Func Screen - ADP Plt Func Scrn - Epineph ABG pH ABG pCO2 ABG pO2 ABG HCO3 ABG Total CO2 ABG O2 Saturation ABG Base Excess FiO2 Sodium 136 Potassium 1.8 L* Chloride 101 Carbon Dioxide 12 L Anion Gap 24.8 H BUN 8 Creatinine 2.90 H GFR Calculation 31 BUN/Creatinine Ratio 2.00 L Glucose 147 H Calculated Osmolality 272.0 L Lactic Acid Calcium 8.0 L Phosphorus Magnesium 2.1 Total Bilirubin 9.40 H AST 71 H ALT 43 Alkaline Phosphatase 165 H Ammonia 292 H Lactate Dehydrogenase Troponin I 0.078 H B-Natriuretic Peptide 32 Total Protein 7.1 Albumin 2.2 L Globulin 4.9 H Albumin/Globulin Ratio 0.4 L Prolactin 99.9 Random Cortisol Urine Color Urine Appearance Urine pH Ur Specific [place] Urine Protein Urine Glucose (UA) Urine Ketones Urine Blood Urine Nitrate Urine Bilirubin Urine Urobilinogen Urine Leukocytes Urine RBC Urine WBC Urine WBC Clumps Ur Squamous Epith Cells Urine Bacteria Hyaline Casts Granular Casts Urine Mucus Ur Culture Indicated? Urine Opiates Screen Negative Ur Barbiturates Screen Negative Ur Phencyclidine Scrn Negative U Amphetamine/Methamph Negative U Benzodiazepines Scrn Negative U Cocaine Metab Screen Negative U Cannabinoids Screen Negative Serum Alcohol < 15 L Treponema pallidum IgG Nonreactive Blood Type Antibody Screen Crossmatch Blood Bank Comment 11/30/16 11/30/16 11/30/16 02:30 02:30 02:40 WBC RBC Hgb Hct MCV MCH MCHC RDW Plt Count MPV Neut % (Auto) Lymph % (Auto) [place] % (Auto) Eos % (Auto) Baso % (Auto) Neut # (Auto) Lymph # (Auto) [place] # (Auto) Eos # (Auto) Baso # (Auto) Immature Gran % Nucleated RBC % Immature Gran # Nucleated RBCs # Platelet Estimate Polychromasia [place] Cells Haptoglobin INR PT Patient/Control Mix Fibrinogen D-Dimer, Quantitative Circ Anticoag PTT Plt Func Screen - ADP Plt Func Scrn - Epineph ABG pH 7.185 L* ABG pCO2 29.0 L ABG pO2 235.0 H ABG HCO3 11.8 L ABG Total CO2 10.7 L ABG O2 Saturation 100.0 ABG Base Excess -16.2 L FiO2 50.00 Sodium Potassium Chloride Carbon Dioxide Anion Gap BUN Creatinine GFR Calculation BUN/Creatinine Ratio Glucose Calculated Osmolality Lactic Acid Calcium Phosphorus Magnesium Total Bilirubin AST ALT Alkaline Phosphatase Ammonia Lactate Dehydrogenase Troponin I B-Natriuretic Peptide Total Protein Albumin Globulin Albumin/Globulin Ratio Prolactin Random Cortisol Urine Color Urine Appearance Urine pH Ur Specific [place] Urine Protein Urine Glucose (UA) Urine Ketones Urine Blood Urine Nitrate Urine Bilirubin Urine Urobilinogen Urine Leukocytes Urine RBC Urine WBC Urine WBC Clumps Ur Squamous Epith Cells Urine Bacteria Hyaline Casts Granular Casts Urine Mucus Ur Culture Indicated? Urine Opiates Screen Ur Barbiturates Screen Ur Phencyclidine Scrn U Amphetamine/Methamph U Benzodiazepines Scrn U Cocaine Metab Screen U Cannabinoids Screen Serum Alcohol Treponema pallidum IgG Blood Type A POSITIVE Cancelled Antibody Screen Negative Cancelled Crossmatch See Detail Blood Bank Comment Cancelled 11/30/16 11/30/16 11/30/16 07:17 09:37 09:37 WBC RBC Hgb Hct MCV MCH MCHC RDW Plt Count MPV Neut % (Auto) Lymph % (Auto) [place] % (Auto) Eos % (Auto) Baso % (Auto) Neut # (Auto) Lymph # (Auto) [place] # (Auto) Eos # (Auto) Baso # (Auto) Immature Gran % Nucleated RBC % Immature Gran # Nucleated RBCs # Platelet Estimate Polychromasia [place] Cells Haptoglobin INR PT Patient/Control Mix Fibrinogen D-Dimer, Quantitative Circ Anticoag PTT Plt Func Screen - ADP Plt Func Scrn - Epineph ABG pH 7.348 L ABG pCO2 31.2 L ABG pO2 222.0 H ABG HCO3 18.0 L ABG Total CO2 16.4 L ABG O2 Saturation 100.0 ABG Base Excess -7.8 L FiO2 50.00 Sodium Potassium 1.9 L* Chloride Carbon Dioxide Anion Gap BUN Creatinine GFR Calculation BUN/Creatinine Ratio Glucose Calculated Osmolality Lactic Acid Calcium Phosphorus 3.4 Magnesium Total Bilirubin AST ALT Alkaline Phosphatase Ammonia Lactate Dehydrogenase Troponin I 0.140 H D B-Natriuretic Peptide Total Protein Albumin Globulin Albumin/Globulin Ratio Prolactin Random Cortisol Urine Color Urine Appearance Urine pH Ur Specific [place] Urine Protein Urine Glucose (UA) Urine Ketones Urine Blood Urine Nitrate Urine Bilirubin Urine Urobilinogen Urine Leukocytes Urine RBC Urine WBC Urine WBC Clumps Ur Squamous Epith Cells Urine Bacteria Hyaline Casts Granular Casts Urine Mucus Ur Culture Indicated? Urine Opiates Screen Ur Barbiturates Screen Ur Phencyclidine Scrn U Amphetamine/Methamph U Benzodiazepines Scrn U Cocaine Metab Screen U Cannabinoids Screen Serum Alcohol Treponema pallidum IgG Blood Type Antibody Screen Crossmatch Blood Bank Comment 11/30/16 11/30/16 11/30/16 11:24 11:24 11:24 WBC RBC Hgb Hct MCV MCH MCHC RDW Plt Count MPV Neut % (Auto) Lymph % (Auto) [place] % (Auto) Eos % (Auto) Baso % (Auto) Neut # (Auto) Lymph # (Auto) [place] # (Auto) Eos # (Auto) Baso # (Auto) Immature Gran % Nucleated RBC % Immature Gran # Nucleated RBCs # Platelet Estimate Polychromasia Karina Cells Haptoglobin < 31.0 INR PT Patient/Control Mix Fibrinogen D-Dimer, Quantitative Circ Anticoag PTT Plt Func Screen - ADP Plt Func Scrn - Epineph ABG pH ABG pCO2 ABG pO2 ABG HCO3 ABG Total CO2 ABG O2 Saturation ABG Base Excess FiO2 Sodium 143 Potassium 2.5 L* Chloride 108 H Carbon Dioxide 17 L Anion Gap 20.5 H BUN 9 Creatinine 2.60 H GFR Calculation 36 BUN/Creatinine Ratio 3.00 L Glucose 160 H Calculated Osmolality 286.0 Lactic Acid 6.6 H Calcium 7.1 L Phosphorus 3.2 Magnesium Total Bilirubin AST ALT Alkaline Phosphatase Ammonia Lactate Dehydrogenase 335 H Troponin I B-Natriuretic Peptide Total Protein Albumin 1.6 L Globulin Albumin/Globulin Ratio Prolactin Random Cortisol Urine Color Urine Appearance Urine pH Ur Specific [place] Urine Protein Urine Glucose (UA) Urine Ketones Urine Blood Urine Nitrate Urine Bilirubin Urine Urobilinogen Urine Leukocytes Urine RBC Urine WBC Urine WBC Clumps Ur Squamous Epith Cells Urine Bacteria Hyaline Casts Granular Casts Urine Mucus Ur Culture Indicated? Urine Opiates Screen Ur Barbiturates Screen Ur Phencyclidine Scrn U Amphetamine/Methamph U Benzodiazepines Scrn U Cocaine Metab Screen U Cannabinoids Screen Serum Alcohol Treponema pallidum IgG Blood Type Antibody Screen Crossmatch Blood Bank Comment 11/30/16 11/30/16 11/30/16 12:50 15:15 15:30 WBC RBC Hgb Hct MCV MCH MCHC RDW Plt Count 54 L MPV Neut % (Auto) Lymph % (Auto) [place] % (Auto) Eos % (Auto) Baso % (Auto) Neut # (Auto) Lymph # (Auto) [place] # (Auto) Eos # (Auto) Baso # (Auto) Immature Gran % Nucleated RBC % Immature Gran # Nucleated RBCs # Platelet Estimate Polychromasia [place] Cells Haptoglobin INR PT Patient/Control Mix Fibrinogen D-Dimer, Quantitative Circ Anticoag PTT Plt Func Screen - ADP Plt Func Scrn - Epineph ABG pH ABG pCO2 ABG pO2 ABG HCO3 ABG Total CO2 ABG O2 Saturation ABG Base Excess FiO2 Sodium Potassium Chloride Carbon Dioxide Anion Gap BUN Creatinine GFR Calculation BUN/Creatinine Ratio Glucose Calculated Osmolality Lactic Acid Calcium Phosphorus Magnesium Total Bilirubin AST ALT Alkaline Phosphatase Ammonia Lactate Dehydrogenase Troponin I B-Natriuretic Peptide Total Protein Albumin Globulin Albumin/Globulin Ratio Prolactin Random Cortisol 12.7 Urine Color Linda Urine Appearance Cloudy Urine pH 5.0 Ur Specific [place] 1.018 Urine Protein 100 Urine Glucose (UA) Negative Urine Ketones Negative Urine Blood Large Urine Nitrate Negative Urine Bilirubin Small H Urine Urobilinogen 2.0 H Urine Leukocytes Moderate H Urine RBC 370 Urine WBC 1650 Urine WBC Clumps Many Ur Squamous Epith Cells Occasional Urine Bacteria Hyaline Casts Granular Casts Urine Mucus Many Ur Culture Indicated? Ordered separately Urine Opiates Screen Ur Barbiturates Screen Ur Phencyclidine Scrn U Amphetamine/Methamph U Benzodiazepines Scrn U Cocaine Metab Screen U Cannabinoids Screen Serum Alcohol Treponema pallidum IgG Blood Type Antibody Screen Crossmatch Blood Bank Comment 11/30/16 11/30/16 11/30/16 15:30 15:30 15:41 WBC RBC Hgb 6.7 L Hct 18.8 L MCV MCH MCHC RDW Plt Count MPV Neut % (Auto) Lymph % (Auto) [place] % (Auto) Eos % (Auto) Baso % (Auto) Neut # (Auto) Lymph # (Auto) [place] # (Auto) Eos # (Auto) Baso # (Auto) Immature Gran % Nucleated RBC % Immature Gran # Nucleated RBCs # Platelet Estimate Polychromasia Karina Cells Haptoglobin INR 2.9 PT Patient/Control Mix 32.6 Fibrinogen < 50 L* D-Dimer, Quantitative 5.0 Circ Anticoag PTT 71.0 H D Plt Func Screen - ADP 129 H Plt Func Scrn - Epineph 271 H ABG pH ABG pCO2 ABG pO2 ABG HCO3 ABG Total CO2 ABG O2 Saturation ABG Base Excess FiO2 Sodium Potassium Chloride Carbon Dioxide Anion Gap BUN Creatinine GFR Calculation BUN/Creatinine Ratio Glucose Calculated Osmolality Lactic Acid 3.8 H Calcium Phosphorus Magnesium Total Bilirubin AST ALT Alkaline Phosphatase Ammonia Lactate Dehydrogenase Troponin I B-Natriuretic Peptide Total Protein Albumin Globulin Albumin/Globulin Ratio Prolactin Random Cortisol Urine Color Urine Appearance Urine pH Ur Specific [place] Urine Protein Urine Glucose (UA) Urine Ketones Urine Blood Urine Nitrate Urine Bilirubin Urine Urobilinogen Urine Leukocytes Urine RBC Urine WBC Urine WBC Clumps Ur Squamous Epith Cells Urine Bacteria Hyaline Casts Granular Casts Urine Mucus Ur Culture Indicated? Urine Opiates Screen Ur Barbiturates Screen Ur Phencyclidine Scrn U Amphetamine/Methamph U Benzodiazepines Scrn U Cocaine Metab Screen U Cannabinoids Screen Serum Alcohol Treponema pallidum IgG Blood Type Antibody Screen Crossmatch Blood Bank Comment - Diagnostic Findings Procedure: Chest x-ray: report reviewed by me - EKG EKG results: interpreted by me EKG shows: tachycardia
[2016-11-30] MEDS: SODIUM ACETATE 150 MEQ in STERILE WATER INJ 850 ML IV SCH (17:43)
[2016-11-30 18:38] LABS: CKMB % 2.2 %
--- NOTE | 2016-11-30 18:41 | ECHO Report ---
Joseph Mariscal Exam Date: 11/30/2016 14:56 Referring Physician: Technologist: Mariaa Yusuf Age: 36 Ht (in): 71 Wt (lb): 190 Gender: M Exam Location: [facility] Echo Indications: anemia, cirrhosis liver, hepatic incephalopathy, jaudice, End stage renal failure, elevated troponin, hypokalemia, metabolic acidosis, AMS BP: 99 / 39 HR: 115 Rhythm: tachycardia Technical Quality: Good IMPRESSIONS Mild concentric left ventricular hypertrophy. Mildly increased septal wall thickness. Hyperdynamic left ventricular systolic function. Left ventricular ejection fraction is estimated at > 65 %. Mild mitral valve sclerosis. Trace tricuspid valve regurgitation. Trivial circumferential pericardial effusion. MEASUREMENTS (Male / Female) Normal Values 2D ECHO LV Diastolic Diameter PLAX 3.8 cm 4.2 - 5.9 / 3.9 - 5.3 cm LV Systolic Diameter PLAX 2.4 cm LV Fractional Shortening PLAX 37.0 % IVS Diastolic Thickness 1.3 cm 0.6 - 1.0 / 0.6 - 0.9 cm LVPW Diastolic Thickness 1.2 cm 0.6 - 1.0 / 0.6 - 0.9 cm Aortic Root Diameter 2.2 cm LA Systolic Diameter LX 2.6 cm 3.0 - 4.0 / 2.7 - 3.8 cm DOPPLER TR Peak Velocity 202.0 cm/s TR Peak Gradient 16.3 mmHg FINDINGS Left Ventricle Mildly increased septal wall thickness. Mild concentric left ventricular hypertrophy. Hyperdynamic left ventricular systolic function. Left ventricular ejection fraction is estimated at > 65 %. Right Ventricle Normal right ventricular size and systolic function. Right Atrium Normal right atrial size. Left Atrium Normal left atrial size. Mitral Valve Mild mitral valve sclerosis. Aortic Valve Mild aortic valve sclerosis without stenosis or regurgitation. Tricuspid Valve Morphologically normal tricuspid valve. Trace tricuspid valve regurgitation. Pulmonic Valve Morphologically normal pulmonic valve. Pericardium trivial circumferential pericardial effusion. Aorta Normal size aortic root and proximal ascending aorta. Siddharth Meng MD (Electronically Signed) Final Date: 30 November 2016 18:40
[2016-11-30 18:43] LABS: Troponin I Only 0.197 NG/ML (0.00-0.045)
[2016-11-30] MEDS: NOREPINEPHRINE 16 MG in SODIUM CHLORIDE 0.9% 234 ML IV SCH (21:30)
[2016-12-01] MEDS: SODIUM ACETATE 150 MEQ in STERILE WATER INJ 850 ML IV SCH ×3 (00:20→20:21)
[2016-12-01] MEDS: LACTULOSE 160 GM/240 ML BOTTLE RECTAL SCH ×4 (03:26→21:21)
[2016-12-01 03:31] LABS: ABG Base Excess -0.7 MMOL/L (-2.5-2.5); ABG HCO3 23.9 MMOL/L (20-26); ABG PH 7.516 (7.35-7.45); ABG TCO2 20.8 MMOL/L (23-27); Allen Test Positive; Pt O2 Delivery Device Ventilator
[2016-12-01] MEDS: ALBUMIN 25% 25 GM in PREMIX 1 EACH IV SCH ×3 (03:41→18:22)
[2016-12-01 05:53] LABS: Troponin I Only 0.801 NG/ML (0.00-0.045)
[2016-12-01 05:55] LABS: Albumin 3.2 G/DL (3.4-5.0); Calcium 7.6 MG/DL (8.5-10.1); Osmolality,Calculated 285.8 MOS/KG (273-304); Potassium 2.6 MMOL/L (3.5-5.1); Total Protein 5.3 G/DL (6.4-8.3)
[2016-12-01] MEDS: POTASSIUM CHLORIDE RIDER 20 MEQ in PREMIX 1 EACH IV PRN (06:15)
[2016-12-01] MEDS: PIPERACILLIN/TAZOBACTAM 3,375 MG in SODIUM CHLORIDE 0.9% 100 ML IV SCH ×3 (06:39→21:48)
--- NOTE | 2016-12-01 07:09 | EKG Report ---
Stationary ECG Study [facility] Test Date: 12/01/2016 7:10:07 AM Pat Name: GHASSAN BYRNES Department: Room: 122 Gender: M Licensed Staff Mft: DANNIELLE : 1980 Requested by: Wendy Beard Order Number: [id number] Reading MD: TRINO GRAY Intervals [place] Rate: 108 P: -10 [place]: 92 QRS: 48 QRSD: 90 T: 32 QT: 371 QTc: 434 Interpretive Statements SINUS TACHYCARDIA WITH SHORT [place] INTERVAL POSSIBLE RIGHT VENTRICULAR CONDUCTION DELAY ST DEVIATION AND MODERATE T-WAVE ABNORMALITY, CONSIDER ANTERIOR ISCHEMIA Electronically Signed On 12-03-16 15:11:09 CDT by TRINO GRAY [email or web address]
--- NOTE | 2016-12-01 07:32 | Hospitalist Progress Note ---
Hospitalist: Subjective Interval history: Pt is more awake and alert and following commands today. No fever. No active bleeding noted at this time. Received multiple units of FFP and PRBCs over the last 24 hours Exam - Constitutional Vitals: Period Temp Pulse Resp BP Sys/Cotto Pulse Ox Last 24 Hr 92.9 F-141 F 101-150 12- 68-127/29-77 100-100 Exam: General :intubated and sedated but arousable. Chronically ill-appearing, jaundiced HEENT :pupils are reactive to light and equal, icteric sclera noted, ET tube in place so unable to visualize his posterior oropharynx; Nares are patent no discharge or epistaxis noted; Neck: Supple no lymphadenopathy or JVD noted Cardiovascular: Tachycardic but regular rhythm, 1/6 systolic murmur Lungs: Mostly clear anteriorly of upper lobes with scattered rhonchi, nonlabored Abdomen: Soft, distended, hypoactive bowel sounds, difficult to assess for hepatosplenomegaly or masses given his body habitus EXT: Warm and well-perfused without any clubbing or cyanosis. +1 edema diffusely SKIN: Ecchymoses scattered on extremities Results - Labs CBC & BMP: 11/30/16 15:30 12/01/16 04:36 - Impressions (1) Acute metabolic encephalopathy possibly due to hyperammonemia (hepatic encephalopathy) +/- possibly due to seizures- improving Status: Acute Current Visit: Yes - 11/30 CT head showed paranasal sinus disease with small fluid within the right maxillary sinus which could reflect an acute component. No definite acute abnormality otherwise. Mild global volume loss which is considered advanced for patient age. Mild periventricular and subcortical hypoattenuation noted which is nonspecific. Considerations include demyelinating process, chronic microvascular ischemic change, and vasculitis. - Prolactin was 99. RPR was not reactive - Neuro checks - on lactulose rectally. Ammonia level better today. (2) Acute hypoxic respiratory failure -Vent support. Bronchodilators. Pulm following. Serial CXR and ABG (3) Hypokalemia Status: Acute Current Visit: Yes - replacing. Mg and Phos are normal - Monitor on telemetry (4) End stage liver disease/ cirrhosis Status: Acute Current Visit: Yes - GI following. Receiving FFP (5) Metabolic acidosis due to lactic acidosis Status: Acute Current Visit: Yes -bicarbonate drip. Serial labs (7) Thrombocytopenia suspected due to liver disease and +/- TTP Status: Acute Current Visit: Yes - transfuse as needed. DIC panel reviewed. Goal fibrinogen is > 150. haptoglobin is low with suspicion for TTP and LDH elevated suggesting TTP. - Hematology consulted to consider plasmapheresis. (8) Profound anemia likely due to chronic disease and sequestration Status: Chronic - transfusing. Recheck. (9) Shock- ? hepatorenal syndrome vs. sepsis vs. obstructive vs. cardiogenic -Cont Levophed as needed for MAP >/= 65. Check cortisol level. Check Blood cultures, urine cultures and sputum cultures. Start empiric antibiotics. (10) Elevated troponin - cardiology has seen. Recs reviewed ppx: PPI/ SCDS Discussed with nurse. I have spent 35 minutes with this patient. I have attempted to call sister Andreina at [phone] and mother Courtney at and was unable to leave a message. Overall prognosis poor.
[2016-12-01] MEDS: POTASSIUM CHLORIDE RIDER 20 MEQ in PREMIX 1 EACH IV SCH ×3 (07:43→11:37)
--- NOTE | 2016-12-01 08:50 | Oncology Consult Note ---
History of Present Illness History of present illness: Mr. Mariscal is a 36 year old male with liver failure. After reviewing the patient 's lab work it is my opinion that his coagulation abnormalities were related to his liver failure and not TTP or DIC. I have copied all the section on clinical use of coagulation tests from Up-To-Date. This includes the section on fibrin d-dimer that states that "elevated concentrations of plasma d-dimer indicate recent or ongoing intravascular coagulation and fibrinolysis." This patient's d-dimer is 5.0. He has a low serum fibrinogen of 50 that was reported November 30. His INR is prolonged at 2.9. Lab work done November 30 included a hemoglobin of 6.7 with a white count of 54,000. His ammonia level was 165 with an LDH of 292 and he had a total bilirubin of 9.4 on November 30. It is up to 14.6 today. Additional lab work on November 30 included a low serum albumin of 1.6. The patient's serum creatinine on admission was 2.6 and is 2.6 today without any indication of rising.His haptoglobin level is low and he may be hemolyzing. It is reported to be less than 31. However, haptoglobin is primarily produced in the liver in this patient's liver is not functioning therefore he is producing less of it than would be normal. In addition, evaluation of the patient's peripheral smear reported on the CBC does not indicate any nucleated red cells. It reports 4+ dorsalis which can occur with liver failure and it does not mention fragmented red cells. I cannot obtain any review of systems. The patient is intubated and critically ill. In fact I think he is terminal from liver failure. Past medical history and the remainder of his history is obtained from his old record because the patient is comatose and chronically appears to be dying from liver failure. Home Medications Medication Instructions Recorded Confirmed Type Cyanocobalamin Tab [Vitamin B12 1,000 mcg PO DAILY tablet 08/24/16 Rx Tab] Folic Acid Tab 1 mg PO DAILY tablet 08/24/16 Rx Furosemide Tab [Lasix Tab] 40 mg PO DAILY #30 tablet 08/24/16 Rx Lactulose Liquid [Chronulac] 15 gm PO TID #473 ml 08/24/16 Rx Pantoprazole Tab [Protonix Tab] 40 mg PO DAILY #30 tablet 08/24/16 Rx Potassium Chloride Cap/Tab [K Dur] 20 meq PO DAILY #30 tablet 08/24/16 Rx Rifaximin [Xifaxan] 550 mg PO BID #60 tablet 08/24/16 Rx Spironolactone [Aldactone] 25 mg PO BID #30 tablet 08/24/16 Rx Thiamine Tab [Vitamin B1 Tab] 100 mg PO DAILY tablet 08/24/16 Rx Allergies Allergy/AdvReac Type Severity Reaction Status Date / Time No Known Allergies Allergy Verified 11/30/16 02:05 Medical,Surgical,& Family Hx - Medical History Cardio: No history of: CAD, Hypertension, [place] Gastrointestinal: History of: Liver Problems (chronic alcoholic cirrhosis) Musculoskeletal: History of: Back/Neck Problems - Surgical History Orthopedic Surgeries: Surgical HX of;: Orthopedic Surgery (knee surgery) - Family History Family History: Reports;: Family Diabetes (mother) - Social History Smoking Status: Never smoker Frequency of Alcohol Use: Occasionally Type of Drug Use: None Physical examination: General: The patient is acutely ill. Although he is oozing from some sites, he does not have bleeding gums or nosebleed and he is not actively bleeding from catheter insertion sites. Eyes: He has conjunctival icterus. ENT: He has blood around his mouth and his oral mucosa is dry. His trachea is midline. Lungs: There are scattered rhonchi. He is intubated. Cardiovascular: He has tachycardia with a grade 2/6 systolic murmur that I can hear both at the apex and in the second left intercostal space that has an ejection quality to it.. There is no jugular venous distention, clubbing or cyanosis. Abdomen: There is fullness in the left upper quadrant but I cannot palpate ascites or and I cannot be certain of the exact extent of the patient's spleen margin. Musculoskeletal: There is no focal muscle atrophy or bone or joint deformity. Neurologic and psychiatric examination cannot really be carried out but when I was palpating the patient's abdomen, he tried to get up and he does not demonstrate any obvious focal neurologic deficit. Nodes: I cannot palpate any submandibular, cervical or supraclavicular adenopathy. Impression: It is my impression that the patient's haptoglobin level is low due to lack of production by the liver because of liver failure rather than hemolysis although he could be hemolyzing modestly. This is not DIC nor is it TTP. This is liver failure with lack of production of clotting components. The thrombocytopenia is also due to the patient's liver failure. My recommendation would be to transfuse 1 unit of fresh frozen plasma with each unit of packed red cells. However, I also think that this patient is not going to survive long and I do not think that transfusing fresh frozen plasma and packed red cells is going to produce a better outcome in his case. I have nothing else to offer on this patient. Please call us if additional assistance is needed. Home Medications Medication Instructions Recorded Confirmed Type Cyanocobalamin Tab [Vitamin B12 1,000 mcg PO DAILY tablet 08/24/16 Rx Tab] Folic Acid Tab 1 mg PO DAILY tablet 08/24/16 Rx Furosemide Tab [Lasix Tab] 40 mg PO DAILY #30 tablet 08/24/16 Rx Lactulose Liquid [Chronulac] 15 gm PO TID #473 ml 08/24/16 Rx Pantoprazole Tab [Protonix Tab] 40 mg PO DAILY #30 tablet 08/24/16 Rx Potassium Chloride Cap/Tab [K Dur] 20 meq PO DAILY #30 tablet 08/24/16 Rx Rifaximin [Xifaxan] 550 mg PO BID #60 tablet 08/24/16 Rx Spironolactone [Aldactone] 25 mg PO BID #30 tablet 08/24/16 Rx Thiamine Tab [Vitamin B1 Tab] 100 mg PO DAILY tablet 08/24/16 Rx Allergies Allergy/AdvReac Type Severity Reaction Status Date / Time No Known Allergies Allergy Verified 11/30/16 02:05 Medical,Surgical,& Family Hx - Medical History Cardio: No history of: CAD, Hypertension, [place] Gastrointestinal: History of: Liver Problems (chronic alcoholic cirrhosis) Musculoskeletal: History of: Back/Neck Problems - Surgical History Orthopedic Surgeries: Surgical HX of;: Orthopedic Surgery (knee surgery) - Family History Family History: Reports;: Family Diabetes (mother) - Social History Smoking Status: Never smoker Frequency of Alcohol Use: Occasionally Type of Drug Use: None Exam - Constitutional Vitals: Period Temp Pulse Resp BP Sys/Cotto Pulse Ox Last 24 Hr 94.8 F-141 F 101-150 12-26 68-127/29-77 100-100 Results - Labs CBC & BMP: 11/30/16 15:30 12/01/16 04:36
--- NOTE | 2016-12-01 08:53 | Ultrasound Report ---
US venous doppler LE BI Indication: Swelling possible hematoma. Comparison: None. Technique: Grayscale, spectral, and color Doppler interrogation of the bilateral lower extremity veins was performed. Augmentation and compression was performed. Findings: Grayscale, color Doppler, and pulsed Doppler evaluation of the veins of the bilateral lower extremity demonstrates no convincing evidence of deep venous thrombosis. There is bilateral lower cavity edema. There is a small linear echogenicity within the right common femoral vein which may reflect prominent valve. IMPRESSION: No convincing evidence of deep venous thrombosis in either lower extremity. PROCEDURE INTERPRETED AT [facility] DEPARTMENT OF RADIOLOGY Final Report Signed by: Dr Raheem Miller
[2016-12-01] MEDS: PANTOPRAZOLE 40 MG VIAL IV SCH ×2 (09:39→21:21)
--- NOTE | 2016-12-01 10:06 | XRay Report ---
History: On ventilator Date: 12/01/2016 Study: Chest x-ray AP portable Comparison exam: 11/30/2016 The endotracheal tube is well-positioned. The cardiomediastinal silhouette is unchanged. There is increasing atelectatic parenchymal consolidation in the right lower lobe compared to the previous study. Minor atelectatic changes in the left base are stable. Shallow inspiration. The osseous structures are similar. Impression: Increasing atelectatic change right lower lobe compared to the previous study PROCEDURE INTERPRETED AT [facility] DEPARTMENT OF RADIOLOGY Final Report Signed by: Dr. Maryjane Marcus
--- NOTE | 2016-12-01 10:23 | Gastrointestinal Progress Note ---
Assessment and Plan (1) Cirrhosis of liver Status: Chronic Assessment and plan: 12/01-no changes in current condition at present time. No overt bleeding reported. Plan an addendum to followed by Dr. Marcus. 11/30-admitted with altered mental status, history of alcoholic cirrhosis. Findings of thrombocytopenia, anemia, and hypokalemia on admission. On ventilator and sedation at this time. Received total of 3 units of packed red blood cells and to be transfused fresh frozen plasma. Plan an addendum to follow by Dr. Duarte. Current Visit: Yes Qualifiers: Hepatic cirrhosis type: alcoholic cirrhosis Gastroenterology - PN: Subj Interval history: CC: Cirrhosis, liver failure Patient is seen, on the vent noted to be responsive to painful stimuli. He is opening his eyes moving around at times however does not follow any commands. No overt bleeding has been reported at this time. He continues to have hyperkalemia at 2.6. His bilirubin is trended up to 14.6 and transaminases are trending downward. Troponins are elevated as well. Platelets are at 54 on yesterday. INR on yesterday 2.9 with fibrinogen less than 50. Patient has been seen by Dr. Lennon and recommendation that coag abnormalities are related to his liver failure. No repeat CBC today noted. Abdomen is soft, bowel sounds noted. ROS: No acute distress at present time. Exam (Progress Note) - Constitutional Vitals: Period Temp Pulse Resp BP Sys/Cotto Pulse Ox Last 24 Hr 96.5 F-141 F 104-150 12-46 73-127/27-77 100-100 General appearance: normal weight, no acute distress - Head Head exam: Present: normal inspection, normocephalic - Eye Eye exam: Present: scleral icterus, other (Lids and conjunctive are unremarkable ) - ENT ENT exam: Present: normal exam, normal oropharynx - Neck Neck exam: Present: normal inspection - Respiratory Respiratory exam: Present: clear to auscultation bilaterally. Absent: rales, rhonchi, wheezes - Cardiovascular Cardiovascular exam: Present: regular rate and rhythm. Absent: diastolic murmur , JVD, systolic murmur - GI/Abdominal GI/Abdominal exam: Present: normal bowel sounds, soft. Absent: ascites, distended, mass, organomegaly - Extremities Exam Extremities exam: Present: normal inspection - Back Exam Back exam: Present: normal inspection - Neurological Exam Neurological exam: Present: other - Psychiatric Psychiatric exam: Present: other - Skin Skin exam: Present: normal color, warm, dry Results - Labs CBC & BMP: 11/30/16 15:30 12/01/16 04:36 Lab Results: I have reviewed the past 24 hour labs
--- NOTE | 2016-12-01 10:25 | Pulmonology Progress Note ---
Pulmonary - PN: Subj Interval history: This is a 36-year-old male patient whom I saw in pulmonary consultation on 2016. I was asked to manage patient's mechanical ventilation and any pulmonary problems that should arise. My impressions were. 1. Alcoholic cirrhosis of the liver with acute on chronic liver failure resulting in altered mental status 2. Severe anemia. Note past history of B12 deficiency 3. Hypo-Tara anemia. 4. History of alcoholism 5. Thrombocytopenia 6. See past history 12/01/2016. Today's x-ray shows a right pleural effusion. There is no heart failure. I did not see any definite infiltrates. Endotracheal tube is in good position. ABGs on mechanical ventilation with an FiO2 50% show a pH 7.516, PCO2 is 27, PO2 is 186 and bicarb is 24. Ventilator adjustments have been made. Total bilirubin is 14.6 ammonia level is dropped from 292-65. CPK is elevated 525. Protein and albumin and globulin are low at 5.3, 3.2 and 2.1 respectively. Potassium is low at 2.6. CBC is pending. Admit H&H was 6.7/ 18.8. Patient's urine is growing a gram-negative nael. The patient is on antibiotics. Patient has required pressor agents to support his blood pressure. Dopamine and norepinephrine. If the patient begins to wake up we can advance his weaning protocol more rapidly. Have also requested physical therapy protocol while on mechanical ventilation. Patient appears to be on all other applicable protocols. Physical exam. Vital signs. See below Neurological. Appears to have some movement in all 4 extremities and slightly arousable. Face. Symmetrical Neck. Symmetrical. No meningismus Lymphatics. No submandibular cervical supraclavicular or epitrochlear adenopathy. Chest. Loose large airway congestion Heart. Lateral PMI Abdomen. Only rare bowel sounds. Extremities. Nothing to suggest deep venous thrombophlebitis The remainder the physical exam is negative Plan. 11/30/2006 1. Mechanical ventilation with weaning protocol and physical therapy protocol 2. Daily chest x-ray and ABGs. 3. Daily lab 4. See orders 12/01/2016 1. Mechanical ventilation and weaning protocol along with physical therapy protocol. 2. Daily chest x-ray, ABGs and lab 3. See today's note above. Exam (Progress Note) - Constitutional Vitals: Period Temp Pulse Resp BP Sys/Cotto Pulse Ox Last 24 Hr 96.5 F-141 F 104-150 12-46 73-127/27-77 100-100 Results - Labs CBC & BMP: 11/30/16 15:30 12/01/16 04:36
[2016-12-01 11:04] LABS: Basophils % 0.2 % (0.0-0.8); Eosinophils # 0.1 10*3/uL (0.0-0.87); Eosinophils % 0.8 % (0.00-10.9); Hematocrit 24.4 VOL% (42.0-52.0); Immature Granulocytes % 0.5 %; Immature Granulocytes Absolute 0.06 #; Lymphocytes # 2.2 10*3/uL (1.4-4.0); Lymphocytes % 19.8 % (21.2-54.2); Mean Corpuscular HGB Conc 35.7 GM/DL (32-36); Mean Corpuscular Hemoglobin 32 PG (27-34); Mean Corpuscular Volume 88.4 FL (87-102); Mean Platelet Volume 9.5 FL (9.6-12.0); Monocytes # 2.1 10*3/uL (0.11-0.8); Monocytes % 18.9 % (1.7-12.7); NRBC # 0.05 10*3/uL; Neutrophils # 6.6 10*3/uL (1.4-7.4); Neutrophils % 59.8 % (38.7-73.9); Red Cell Distribution Width 14.8 % (9.3-17.3); White Blood Count 11.1 T/CUMM (4-12)
[2016-12-01 11:07] LABS: Hemoglobin 8.7 GM/DL (14.0-18.0); Red Blood Count 2.76 MC/CUMM (3.8-5.5)
[2016-12-01 11:09] LABS: Platelet Count 23 T/CUMM (130-400)
[2016-12-01] MEDS: LORazepam INJ 40 MG in DEXTROSE 5% 30 ML IV SCH ×2 (11:11→19:31)
[2016-12-01 11:15] LABS: INR 1.8; PT Patient Result 19.9 SECS
[2016-12-01 11:22] LABS: D-Dimer 8.4 MG/L FEU
[2016-12-01 11:23] LABS: Band Neutrophils 1 % (0-10); Lymphocytes 16 % (20-55); Segmented Neutrophils 64 % (50-85); Total Cells Counted 100
[2016-12-01 11:24] LABS: Hypochromasia 1+
[2016-12-01 11:25] LABS: Platelet Estimate Decreased; Target Cells Slight
[2016-12-01 11:26] LABS: Microcytosis Slight
--- NOTE | 2016-12-01 11:30 | Cardiology Progress Note ---
Assessment and Plan - Time spent with patient Time spent with patient: Greater than 30 minutes (1) Elevated troponin Status: Acute Assessment and plan: SEE PLAN OF CARE LISTED BELOW Current Visit: Yes (2) Murmur, cardiac Status: Acute Assessment and plan: SEE PLAN OF CARE LISTED BELOW Current Visit: Yes (3) Hematoma of abdominal wall Status: Acute Assessment and plan: SEE PLAN OF CARE LISTED BELOW Current Visit: No Qualifiers: Encounter type: initial encounter Qualified Code(s): S30.1XXA - Contusion of abdominal wall, initial encounter (4) Jaundice, acholuric Status: Acute Assessment and plan: SEE PLAN OF CARE LISTED BELOW Current Visit: Yes (5) Symptomatic anemia Status: Acute Assessment and plan: SEE PLAN OF CARE LISTED BELOW Current Visit: Yes (6) Cirrhosis of liver Status: Chronic Assessment and plan: SEE PLAN OF CARE LISTED BELOW Current Visit: Yes Qualifiers: Hepatic cirrhosis type: alcoholic cirrhosis (7) Thrombocytopenia Status: Acute Assessment and plan: SEE PLAN OF CARE LISTED BELOW Current Visit: Yes (8) Coagulopathy Status: Acute Assessment and plan: SEE PLAN OF CARE LISTED BELOW Current Visit: Yes (9) Altered mental status Status: Acute Assessment and plan: SEE PLAN OF CARE LISTED BELOW Current Visit: Yes (10) End stage liver disease Status: Acute Assessment and plan: SEE PLAN OF CARE LISTED BELOW Current Visit: Yes (11) Hypokalemia Status: Acute Assessment and plan: SEE PLAN OF CARE LISTED BELOW Current Visit: Yes Cardiology - PN: Subj Interval history: [employer] INSTALLER: (NEW) DR. GRAY Patient is being seen in the CCU. He is intubated, sedated. SUMMARY: Mr. Mariscal, 36ChM, with a past medical history notable for cirrhosis of liver (diagnosed three years ago) related to alcohol abuse. Patient was admitted November 30, 2016 with altered mental status. Patient required intubation in order to protect his airway while being sedated due to combativeness. He was found to be have significantly elevated ammonia levels, severely anemic, thrombocytopenic, coagulopathic, severely hypokalemic. Troponin was noted to be mildly elevated and cardiology was consulted. EKG is abnormal but did not reflect STEMI. DECEMBER 01, 2016: Patient remains intubated and critically ill. At this time he is requiring dopamine, Levophed. He is on IV Ativan and currently being transfused with packed red blood cells. Troponin only minimally increased this morning. Echocardiogram reveals EF 65% without significant valvular abnormality. He remains in a sinus tachycardia. Be treated with antibiotics. He does have UTI. He remains critically ill. ASSESSMENT/PLAN: 1. CIRRHOSIS OF LIVER - continue current plan of care. 2. AMS - continue current plan of care 3. ANEMIA - following hemoglobin and hematocrit closely. Currently receiving transfusion 4. THROMOBOCYTOPENIA - worse overnight. Dr. Lenonn consulted and appreciate his input. 5. COAGULOPATHIC STATE - multiple areas bleeding. Hematomas noted bilaterally in both groins. Obviously, not a candidate for anticoagulation such as Lovenox or aspirin. 6. HYPOKALEMIA - remains hypokalemic and currently on the potassium replacement protocol. 7. ALCOHOLISM - continue current plan of care 8. CARDIAC MURMUR - echo revealed no significant cardiac abnormality. 9. RENAL FAILURE - uncertain if this is acute on chronic however he is currently stage III. 10. ELEVATED TROPONIN - mildly elevated this morning, no impressive increase given his significant metabolic disarray. When possible, patient will need aspirin, Lovenox, beta blockade and nitrates. Unfortunately, not a candidate at this time due to hypotension. 11. SINUS TACHYCARDIA - eventually, would like to introduce a beta-grecia, particularly Propanolol which will also be good for possible varices. Unfortunately, patient's blood pressure and allow for introduction of such. Exam (Progress Note) - Constitutional Vitals: Period Temp Pulse Resp BP Sys/Cotto Pulse Ox Last 24 Hr 96.5 F-141 F 104-150 12-46 84-127/27-76 100-100 Exam: General: [Appears critically ill. Intubated ] HEENT: [Normocephalic, atraumatic. Mucous membranes moist. No jaundice noted. Conjunctiva moist and clear, sclerae anicteric] Neck: Unable to assess for JVD due to habitus. No thyromegaly or lymphadenopathy noted. No carotid bruit appreciated Cardiac: [Fast rate, regular rhythm. [No murmur appreciated this murmur. Lungs: [Rhonchi noted throughout. Symmetrical chest wall movements noted. Abdomen: Soft, bowel sounds normoactive. Nontender and nondistended. No abdominal bruit or thrill noted. No masses noted. Musculoskeletal: No fluid collection. Decreased range of motion is noted. Extremities: No clubbing, cyanosis noted. [ General edema 1+] Upper extremity pulses 2+. Lower extremity pulses 1+. Capillary refill less than 3 seconds. Skin: No unusual lesions or rashes. No skin breakdown appreciated. Neuro: Sedated. No essential tremor is appreciated. Result/EKG - Labs CBC & BMP: 12/01/16 10:38 12/01/16 04:36 Lab Results: I have reviewed the past 24 hour labs Labs: Laboratory Results - last 24 hr 11/30/16 11/30/16 11/30/16 02:00 02:30 11:24 WBC RBC Hgb Hct MCV MCH MCHC RDW Plt Count MPV Neut % (Auto) Lymph % (Auto) Mccreary % (Auto) Eos % (Auto) Baso % (Auto) Neut # (Auto) Lymph # (Auto) Mccreary # (Auto) Eos # (Auto) Baso # (Auto) Immature Gran % Nucleated RBC % Immature Gran # Nucleated RBCs # Haptoglobin INR PT Patient/Control Mix Fibrinogen D-Dimer, Quantitative Circ Anticoag PTT Plt Func Screen - ADP Plt Func Scrn - Epineph ABG pH ABG pCO2 ABG pO2 ABG HCO3 ABG Total CO2 ABG O2 Saturation ABG Base Excess FiO2 Sodium 143 Potassium 2.5 L* Chloride 108 H Carbon Dioxide 17 L Anion Gap 20.5 H BUN 9 Creatinine 2.60 H GFR Calculation 36 BUN/Creatinine Ratio 3.00 L Glucose 160 H Calculated Osmolality 286.0 Lactic Acid Calcium 7.1 L Phosphorus 3.2 Total Bilirubin AST ALT Alkaline Phosphatase Ammonia Lactate Dehydrogenase Total Creatine Kinase CK-MB (CK-2) CK and CKMB Interp Troponin I Total Protein Albumin 1.6 L Globulin Albumin/Globulin Ratio Random Cortisol Urine Color Urine Appearance Urine pH Ur Specific [place] Urine Protein Urine Glucose (UA) Urine Ketones Urine Blood Urine Nitrate Urine Bilirubin Urine Urobilinogen Urine Leukocytes Urine RBC Urine WBC Urine WBC Clumps Ur Squamous Epith Cells Urine Mucus Ur Culture Indicated? Blood Type Cancelled Cancelled Antibody Screen Cancelled Cancelled Crossmatch See Detail See Detail Blood Bank Comment Cancelled Cancelled 11/30/16 11/30/16 11/30/16 11:24 11:24 12:50 WBC RBC Hgb Hct MCV MCH MCHC RDW Plt Count MPV Neut % (Auto) Lymph % (Auto) [place] % (Auto) Eos % (Auto) Baso % (Auto) Neut # (Auto) Lymph # (Auto) [place] # (Auto) Eos # (Auto) Baso # (Auto) Immature Gran % Nucleated RBC % Immature Gran # Nucleated RBCs # Haptoglobin < 31.0 INR PT Patient/Control Mix Fibrinogen D-Dimer, Quantitative Circ Anticoag PTT Plt Func Screen - ADP Plt Func Scrn - Epineph ABG pH ABG pCO2 ABG pO2 ABG HCO3 ABG Total CO2 ABG O2 Saturation ABG Base Excess FiO2 Sodium Potassium Chloride Carbon Dioxide Anion Gap BUN Creatinine GFR Calculation BUN/Creatinine Ratio Glucose Calculated Osmolality Lactic Acid 6.6 H Calcium Phosphorus Total Bilirubin AST ALT Alkaline Phosphatase Ammonia Lactate Dehydrogenase 335 H Total Creatine Kinase CK-MB (CK-2) CK and CKMB Interp Troponin I Total Protein Albumin Globulin Albumin/Globulin Ratio Random Cortisol 12.7 Urine Color Urine Appearance Urine pH Ur Specific [place] Urine Protein Urine Glucose (UA) Urine Ketones Urine Blood Urine Nitrate Urine Bilirubin Urine Urobilinogen Urine Leukocytes Urine RBC Urine WBC Urine WBC Clumps Ur Squamous Epith Cells Urine Mucus Ur Culture Indicated? Blood Type Antibody Screen Crossmatch Blood Bank Comment 11/30/16 11/30/16 11/30/16 15:15 15:30 15:30 WBC RBC Hgb Hct MCV MCH MCHC RDW Plt Count 54 L MPV Neut % (Auto) Lymph % (Auto) [place] % (Auto) Eos % (Auto) Baso % (Auto) Neut # (Auto) Lymph # (Auto) [place] # (Auto) Eos # (Auto) Baso # (Auto) Immature Gran % Nucleated RBC % Immature Gran # Nucleated RBCs # Haptoglobin INR 2.9 PT Patient/Control Mix 32.6 Fibrinogen < 50 L* D-Dimer, Quantitative 5.0 Circ Anticoag PTT 71.0 H D Plt Func Screen - ADP 129 H Plt Func Scrn - Epineph 271 H ABG pH ABG pCO2 ABG pO2 ABG HCO3 ABG Total CO2 ABG O2 Saturation ABG Base Excess FiO2 Sodium Potassium Chloride Carbon Dioxide Anion Gap BUN Creatinine GFR Calculation BUN/Creatinine Ratio Glucose Calculated Osmolality Lactic Acid Calcium Phosphorus Total Bilirubin AST ALT Alkaline Phosphatase Ammonia Lactate Dehydrogenase Total Creatine Kinase CK-MB (CK-2) CK and CKMB Interp Troponin I Total Protein Albumin Globulin Albumin/Globulin Ratio Random Cortisol Urine Color [place] Urine Appearance Cloudy Urine pH 5.0 Ur Specific [place] 1.018 Urine Protein 100 Urine Glucose (UA) Negative Urine Ketones Negative Urine Blood Large Urine Nitrate Negative Urine Bilirubin Small H Urine Urobilinogen 2.0 H Urine Leukocytes Moderate H Urine RBC 370 Urine WBC 1650 Urine WBC Clumps Many Ur Squamous Epith Cells Occasional Urine Mucus Many Ur Culture Indicated? Ordered separately Blood Type Antibody Screen Crossmatch Blood Bank Comment 11/30/16 11/30/16 11/30/16 15:30 15:41 15:41 WBC RBC Hgb 6.7 L Hct 18.8 L MCV MCH MCHC RDW Plt Count MPV Neut % (Auto) Lymph % (Auto) [place] % (Auto) Eos % (Auto) Baso % (Auto) Neut # (Auto) Lymph # (Auto) [place] # (Auto) Eos # (Auto) Baso # (Auto) Immature Gran % Nucleated RBC % Immature Gran # Nucleated RBCs # Haptoglobin INR PT Patient/Control Mix Fibrinogen D-Dimer, Quantitative Circ Anticoag PTT Plt Func Screen - ADP Plt Func Scrn - Epineph ABG pH ABG pCO2 ABG pO2 ABG HCO3 ABG Total CO2 ABG O2 Saturation ABG Base Excess FiO2 Sodium Potassium Chloride Carbon Dioxide Anion Gap BUN Creatinine GFR Calculation BUN/Creatinine Ratio Glucose Calculated Osmolality Lactic Acid 3.8 H Calcium Phosphorus Total Bilirubin AST ALT Alkaline Phosphatase Ammonia Lactate Dehydrogenase Total Creatine Kinase 300 CK-MB (CK-2) 6.5 H CK and CKMB Interp 2.2 Troponin I 0.197 H D Total Protein Albumin Globulin Albumin/Globulin Ratio Random Cortisol Urine Color Urine Appearance Urine pH Ur Specific [place] Urine Protein Urine Glucose (UA) Urine Ketones Urine Blood Urine Nitrate Urine Bilirubin Urine Urobilinogen Urine Leukocytes Urine RBC Urine WBC Urine WBC Clumps Ur Squamous Epith Cells Urine Mucus Ur Culture Indicated? Blood Type Antibody Screen Crossmatch Blood Bank Comment 11/30/16 11/30/16 12/01/16 18:55 Unknown 03:15 WBC RBC Hgb Hct MCV MCH MCHC RDW Plt Count MPV Neut % (Auto) Lymph % (Auto) [place] % (Auto) Eos % (Auto) Baso % (Auto) Neut # (Auto) Lymph # (Auto) [place] # (Auto) Eos # (Auto) Baso # (Auto) Immature Gran % Nucleated RBC % Immature Gran # Nucleated RBCs # Haptoglobin INR PT Patient/Control Mix Fibrinogen D-Dimer, Quantitative Circ Anticoag PTT Plt Func Screen - ADP Plt Func Scrn - Epineph ABG pH 7.516 H ABG pCO2 27.0 L ABG pO2 186.0 H ABG HCO3 23.9 ABG Total CO2 20.8 L ABG O2 Saturation 100.0 ABG Base Excess -0.7 FiO2 50.00 Sodium Potassium 2.2 L* Chloride Carbon Dioxide Anion Gap BUN Creatinine GFR Calculation BUN/Creatinine Ratio Glucose Calculated Osmolality Lactic Acid Calcium Phosphorus Total Bilirubin AST ALT Alkaline Phosphatase Ammonia Lactate Dehydrogenase Total Creatine Kinase CK-MB (CK-2) CK and CKMB Interp Troponin I Total Protein Albumin Globulin Albumin/Globulin Ratio Random Cortisol Urine Color Urine Appearance Urine pH Ur Specific [place] Urine Protein Urine Glucose (UA) Urine Ketones Urine Blood Urine Nitrate Urine Bilirubin Urine Urobilinogen Urine Leukocytes Urine RBC Urine WBC Urine WBC Clumps Ur Squamous Epith Cells Urine Mucus Ur Culture Indicated? Blood Type Cancelled Antibody Screen Cancelled Crossmatch See Detail Blood Bank Comment Cancelled 12/01/16 12/01/16 12/01/16 04:36 04:36 10:38 WBC 11.1 RBC 2.76 L D Hgb 8.7 L D Hct 24.4 L MCV 88.4 MCH 32 MCHC 35.7 RDW 14.8 Plt Count 23 L* D MPV 9.5 L Neut % (Auto) 59.8 Lymph % (Auto) 19.8 L Mccreary % (Auto) 18.9 H Eos % (Auto) 0.8 Baso % (Auto) 0.2 Neut # (Auto) 6.6 Lymph # (Auto) 2.2 Mccreary # (Auto) 2.1 H Eos # (Auto) 0.1 Baso # (Auto) 0.0 Immature Gran % 0.5 Nucleated RBC % 0.5 Immature Gran # 0.06 Nucleated RBCs # 0.05 Haptoglobin INR PT Patient/Control Mix Fibrinogen D-Dimer, Quantitative Circ Anticoag PTT Plt Func Screen - ADP Plt Func Scrn - Epineph ABG pH ABG pCO2 ABG pO2 ABG HCO3 ABG Total CO2 ABG O2 Saturation ABG Base Excess FiO2 Sodium 144 Potassium 2.6 L Chloride 107 Carbon Dioxide 24 Anion Gap 15.6 H BUN 12 Creatinine 2.60 H GFR Calculation 36 BUN/Creatinine Ratio 4.00 L Glucose 105 Calculated Osmolality 285.8 Lactic Acid Calcium 7.6 L Phosphorus Total Bilirubin 14.60 H* AST 54 H ALT 27 Alkaline Phosphatase 73 Ammonia 65 H Lactate Dehydrogenase Total Creatine Kinase 525 H D CK-MB (CK-2) 4.8 H CK and CKMB Interp Troponin I 0.801 H D Total Protein 5.3 L Albumin 3.2 L Globulin 2.1 L Albumin/Globulin Ratio 1.5 Random Cortisol Urine Color Urine Appearance Urine pH Ur Specific [place] Urine Protein Urine Glucose (UA) Urine Ketones Urine Blood Urine Nitrate Urine Bilirubin Urine Urobilinogen Urine Leukocytes Urine RBC Urine WBC Urine WBC Clumps Ur Squamous Epith Cells Urine Mucus Ur Culture Indicated? Blood Type Antibody Screen Crossmatch Blood Bank Comment - Diagnostic Findings Procedure: Chest x-ray: report reviewed by me - EKG EKG results: interpreted by me EKG shows: tachycardia
[2016-12-01 11:36] LABS: Troponin I Only 0.946 NG/ML (0.00-0.045)
[2016-12-01] MEDS ORDERED: SODIUM CHLORIDE 0.9% 250 ML IV PRN (11:50)
[2016-12-01 12:22] LABS: Bilirubin,Total 14.6 MG/DL (0.2-1.0)
[2016-12-01] MEDS: NOREPINEPHRINE 16 MG in SODIUM CHLORIDE 0.9% 234 ML IV SCH ×2 (12:37→21:38)
[2016-12-01] MEDS: DOPamine 800 MG/250 ML PREMIX IV SCH (14:52)
[2016-12-01] MEDS: PHENYLEPHRINE INJ 160 MG in SODIUM CHLORIDE 0.9% 234 ML IV PRN (23:07)
[2016-12-02] MEDS ORDERED: DEXTROSE 50% 25 GM/50 ML VIAL IV PRN (00:42)
[2016-12-02] MEDS ORDERED: GLUCAGON 1 MG VIAL IM PRN (00:42)
[2016-12-02] MEDS: LACTULOSE 160 GM/240 ML BOTTLE RECTAL SCH (02:19)
[2016-12-02] MEDS: ALBUMIN 25% 25 GM in PREMIX 1 EACH IV SCH ×3 (02:19→18:21)
[2016-12-02] MEDS: LORazepam INJ 40 MG in DEXTROSE 5% 30 ML IV SCH ×4 (03:04→19:54)
[2016-12-02 04:36] LABS: ABG Base Excess 6.2 MMOL/L (-2.5-2.5); ABG HCO3 29.7 MMOL/L (20-26); ABG Oxygen Saturation 98.4 % (95-100); ABG PH 7.511 (7.35-7.45); ABG PO2 141.7 MM HG (80-95); ABG TCO2 30.9 MMOL/L (23-27); Allen Test Positive; Pt O2 Delivery Device Ventilator
[2016-12-02] MEDS: NOREPINEPHRINE 16 MG in SODIUM CHLORIDE 0.9% 234 ML IV SCH ×2 (04:45→13:42)
[2016-12-02] MEDS: SODIUM ACETATE 150 MEQ in STERILE WATER INJ 850 ML IV SCH ×3 (04:45→15:55)
[2016-12-02] MEDS: PIPERACILLIN/TAZOBACTAM 3,375 MG in SODIUM CHLORIDE 0.9% 100 ML IV SCH ×3 (05:00→21:53)
[2016-12-02 05:07] LABS: Basophils % 0.1 % (0.0-0.8); Eosinophils # 0.1 10*3/uL (0.0-0.87); Eosinophils % 0.5 % (0.00-10.9); Hematocrit 18.6 VOL% (42.0-52.0); Hemoglobin 6.7 GM/DL (14.0-18.0); Immature Granulocytes % 0.7 %; Immature Granulocytes Absolute 0.08 #; Lymphocytes # 2.5 10*3/uL (1.4-4.0); Lymphocytes % 22.3 % (21.2-54.2); Mean Corpuscular Hemoglobin 32 PG (27-34); Mean Corpuscular Volume 87.7 FL (87-102); Mean Platelet Volume 10.5 FL (9.6-12.0); Monocytes # 1.9 10*3/uL (0.11-0.8); Monocytes % 17.3 % (1.7-12.7); NRBC # 0.02 10*3/uL; Neutrophils # 6.5 10*3/uL (1.4-7.4); Neutrophils % 59.1 % (38.7-73.9); Platelet Count 41 T/CUMM (130-400); Red Blood Count 2.12 MC/CUMM (3.8-5.5); Red Cell Distribution Width 15.5 % (9.3-17.3)
[2016-12-02] MEDS ORDERED: SODIUM CHLORIDE 0.9% 250 ML IV PRN (05:21)
[2016-12-02 05:39] LABS: Calcium 7.6 MG/DL (8.5-10.1); Magnesium 2.3 MG/DL (1.8-2.4); Osmolality,Calculated 290.4 MOS/KG (273-304)
[2016-12-02 05:41] LABS: Potassium 2.3 MMOL/L (3.5-5.1)
[2016-12-02] MEDS: POTASSIUM CHLORIDE RIDER 20 MEQ in PREMIX 1 EACH IV PRN ×7 (05:47→23:13)
[2016-12-02 06:50] LABS: Anisocytosis 1+; Band Neutrophils 2 % (0-10); Lymphocytes 16 % (20-55); Metamyelocytes 1 %; Myelocytes 4 %; Nucleated Red Blood Cells 2 (0-5); Segmented Neutrophils 74 % (50-85); Total Cells Counted 100
[2016-12-02 06:51] LABS: Hypochromasia 1+; Platelet Estimate Decreased; Target Cells 1+
--- NOTE | 2016-12-02 07:33 | Hospitalist Progress Note ---
Hospitalist: Subjective Interval history: Pt is awaking up more on the vent. No fever. Requiring multiple units of PRBCS and FFP. Exam - Constitutional Vitals: Period Temp Pulse Resp BP Sys/Cotto Pulse Ox Last 24 Hr 97.6 F-100 F 101-131 11-29 86-130/27-59 97-100 Exam: General :intubated and sedated but arousable. Chronically ill-appearing, jaundiced HEENT :pupils are reactive to light and equal, icteric sclera noted, ET tube in place so unable to visualize his posterior oropharynx; Nares are patent no discharge or epistaxis noted; Neck: Supple no lymphadenopathy or JVD noted Cardiovascular: Tachycardic but regular rhythm, 1/6 systolic murmur Lungs: Mostly clear anteriorly of upper lobes with scattered rhonchi, nonlabored Abdomen: Soft, distended, hypoactive bowel sounds, difficult to assess for hepatosplenomegaly or masses given his body habitus EXT: Warm and well-perfused without any clubbing or cyanosis. +1 edema diffusely SKIN: Ecchymoses scattered on extremities Results - Labs CBC & BMP: 12/02/16 04:30 12/02/16 04:30 - Impressions (1) Severe Sepsis due to suspected pneumonia and UTI and GPC bacteremia with septic shock and possibly adrenal insufficiency - Cont IV Zosyn and Vancomycin. Ask pharmacy to dose - Cont Levophed and Norepinephrine as needed for MAP >/= 65. Cortisol level reviewed. Will do cortisol stimulation test. F/U Blood cultures, urine cultures and sputum cultures. Cont empiric antibiotics (Vanc and Zosyn). (2) Acute metabolic encephalopathy possibly due to hyperammonemia (hepatic encephalopathy) +/- possibly due to seizures- improving Status: Acute Current Visit: Yes - 11/30 CT head showed paranasal sinus disease with small fluid within the right maxillary sinus which could reflect an acute component. No definite acute abnormality otherwise. Mild global volume loss which is considered advanced for patient age. Mild periventricular and subcortical hypoattenuation noted which is nonspecific. Considerations include demyelinating process, chronic microvascular ischemic change, and vasculitis. - Prolactin was 99. RPR was not reactive - Neuro checks - on lactulose rectally. Ammonia improved. (2) Acute hypoxic respiratory failure - Vent support. Bronchodilators. Pulm following. Serial CXR and ABG - CXR 12/02 showed lungs remain under aerated with some mild patchy and stranding right lung opacities in the lower lung york bilaterally. The upper lung york are relatively clear. (3) Hypokalemia Status: Acute Current Visit: Yes - replacing. Mg and Phos are normal - Monitor on telemetry (4) End stage liver disease/ cirrhosis Status: Acute Current Visit: Yes - GI following. Supportive care. (5) Acute renal failure with Metabolic acidosis due to lactic acidosis- improving with treatment Status: Acute Current Visit: Yes -cont bicarbonate drip. Serial labs (7) Thrombocytopenia suspected due to liver disease and +/- TTP Status: Acute Current Visit: Yes - transfuse as needed. DIC panel reviewed. Goal fibrinogen is > 150. haptoglobin is low with suspicion for TTP and LDH elevated suggesting TTP. - Hematology has seen patient and signed off. Did not feel patient was a candidate for plasmapheresis. (8) Profound anemia likely due to chronic disease and sequestration and hemolytic process Status: - Transfusing. Recheck. Hopefully steroids will help. (10) Elevated troponin - cardiology has seen. Recs reviewed ppx: PPI/ SCDS Discussed with nurse. I have spent 45 minutes with this patient. D/W Mother Courtney at [phone] and updated. She will discuss with her daughter and consider changing code status to DNR. Awaiting decision. Overall prognosis poor.
--- NOTE | 2016-12-02 08:32 | Pulmonology Progress Note ---
Pulmonary - PN: Subj Interval history: This 36-year-old male has advanced cirrhosis felt to be due to alcohol. He had a markedly elevated ammonia level of 300+ on admission. He starting to wake up a little bit. He is on mechanical ventilation. Hematocrit is down to 18 and he will be transfused today. He is doing some CPAP trials. Not able to extubate him until mental status is better. Exam (Progress Note) - Constitutional Vitals: Period Temp Pulse Resp BP Sys/Cotto Pulse Ox Last 24 Hr 97.8 F-100 F 98-131 11-29 86-130/27-59 97-100 Exam: Patient is jaundiced. Unresponsive. Vital signs normal except pulse around 100 -110. Pupils reactive. Orotracheal tube in place. Neck is supple. Chest reveals equal breath sounds. Does have a few crackles at bases. Heart rate is slightly elevated. No murmurs. Abdomen has ascites. Bowel sounds present. Extremities no clubbing cyanosis. He does have peripheral edema. Results - Labs CBC & BMP: 12/02/16 04:30 12/02/16 04:30 Lab Results: I have reviewed the past 24 hour labs Assessment and Plan (1) Urinary tract infection Status: Acute Assessment and plan: On empiric Zosyn. Await final identification of organisms. Current Visit: Yes (2) Cirrhosis of liver Status: Chronic Assessment and plan: Has end-stage cirrhosis felt to be due to alcohol. Current Visit: Yes Qualifiers: Hepatic cirrhosis type: alcoholic cirrhosis (3) Hepatic encephalopathy Status: Acute Assessment and plan: He is starting to be a little bit more active. Requiring some sedation to keep from fighting the ventilator. Current Visit: Yes (4) End stage liver disease Status: Acute Assessment and plan: Prognosis is poor. Current Visit: Yes
--- NOTE | 2016-12-02 09:02 | Gastrointestinal Progress Note ---
Assessment and Plan - Time spent with patient Time spent with patient: Greater than 30 minutes (1) Cirrhosis of liver Status: Chronic Current Visit: Yes Qualifiers: Hepatic cirrhosis type: alcoholic cirrhosis (2) Anemia Status: Acute Current Visit: Yes (3) Altered mental status Status: Acute Current Visit: Yes (4) Other specified counseling Status: Acute Current Visit: No Gastroenterology - PN: Subj Interval history: PLEASE NOTE -- automatic citation of patient information is unavoidable in this electronic note. I have made a reasonable effort to review the information cited , but it is not a part of my evaluation, impression, or recommendation unless specifically discussed in the dictated text that follows. As well, voice recognition software was used in the creation of this clinical note. Reasonable effort was made to identify and correct gross errors. Despite proofreading, errors in obstetrician/gynecologist may be present, including nonsense verbiage at times. If you encounter such an error, please contact me at for discussion and correction. -- Cristofer Chief complaint: cirrhosis Subjective: the patient is a 28-year-old male seen for follow-up of alcoholic cirrhosis. The patient remains critically ill, intubated, and sedated. No significant events are noted overnight. The staff reports that he is arousable during sedation holidays and actually wakes up rather quickly. He is able to follow commands. He becomes agitated when he wakes but, otherwise, has not shown clear signs of severe delirium tremens. Medications: albumin, albuterol, dopamine, lorazepam, norepinephrine, Protonix, phenylephrine, Zosyn, potassium chloride, sodium acetate, normal saline Review of Symptoms: unable to provide Physical examination: Vital Signs: Current vital signs reviewed. General Appearance: lying in bed. Intubated and sedated. Head: Normocephalic. Eyes: positive scleral icterus. No scleral injection. No conjunctival pallor. Oral Cavity: Odor of breath was normal. No drooling was observed. Lips showed no abnormalities. Lungs: Respiration rhythm and depth was normal. Cardiovascular: Heart rate and rhythm were normal. Abdomen: abdomen was not distended. Abdominal auscultation revealed positive bowel sounds. Ascites was not discovered. Abdominal palpation revealed no tenderness and no hepatosplenomegaly. Musculoskeletal System: musculoskeletal system was grossly normal. Neurological: patient was sedated at the time of examination Skin: Gen. appearance was normal. Color and pigmentation were normal. No skin lesions were appreciated. Laboratory: white blood count 11.0, hemoglobin 6.7, hematocrit 18.6, platelets .1, no new liver enzymes this morning, MELD 29 Radiology: reviewed with no pertinent changes noted. Impressions: 1. Cirrhosis -- this appears to be acute on chronic liver injury due to continued alcohol use. His MELD score of 29 predicts very high 30 day and 90 day mortality. Unfortunately, he is not a candidate for transplant evaluation given his ongoing alcohol use and previously expressed intention to continue same. I recommend continued aggressive electrolyte and volume control and minimization of potentially hepatotoxic medications to whatever extent possible. 2. Anemia -- the patient is at risk for chronic bleeding from portal hypertensive gastropathy and portal hypertensive colopathy. He is also at risk from peptic ulcer disease and variceal bleeding. Fortunately, there is not evidence of overt or hemodynamically significant bleeding at present and urgent endoscopy is not indicated. I recommend continued monitoring with consideration of transfusion as indicated. 3. Altered mental status -- this is likely multifactorial with some contribution from hepatic encephalopathy. I recommend continued lactulose therapy. If patient is unable to take orally, consider administration via nasogastric tube. Failing this, consider rectal instillation. 4. Other specified counseling -- Patient seen for greater than 30 minutes. Greater than 50% of this time was spent counseling regarding differential diagnosis, likely diagnosis,, diagnostic and therapeutic options, risks, benefits, and alternatives to procedures and medications, informed consent, and plan of care generally. Patient has expressed understanding and wishes to proceed. Recommendations: -- continued aggressive volume, glucose, and electrolyte management -- minimize potentially hepatotoxic medications to whatever extent possible -- minimize hepatically cleared and potentially mental status altering medication to whatever extent possible -- continue monitoring blood counts with transfusion as indicated -- continued lactulose therapy -- we will continue to follow with you Exam (Progress Note) - Constitutional Vitals: Period Temp Pulse Resp BP Sys/Cotto Pulse Ox Last 24 Hr 97.8 F-100 F 98-131 11-29 86-130/27-59 97-100 Results - Labs CBC & BMP: 12/02/16 04:30 12/02/16 04:30
[2016-12-02] MEDS: PANTOPRAZOLE 40 MG VIAL IV SCH ×2 (09:03→21:52)
--- NOTE | 2016-12-02 09:03 | Cardiology Progress Note ---
Assessment and Plan (1) Elevated troponin Status: Acute Assessment and plan: SEE PLAN OF CARE LISTED BELOW Current Visit: Yes (2) Murmur, cardiac Status: Acute Assessment and plan: SEE PLAN OF CARE LISTED BELOW Current Visit: Yes (3) Hematoma of abdominal wall Status: Acute Assessment and plan: SEE PLAN OF CARE LISTED BELOW Current Visit: No Qualifiers: Encounter type: initial encounter Qualified Code(s): S30.1XXA - Contusion of abdominal wall, initial encounter (4) Jaundice, acholuric Status: Acute Assessment and plan: SEE PLAN OF CARE LISTED BELOW Current Visit: Yes (5) Symptomatic anemia Status: Acute Assessment and plan: SEE PLAN OF CARE LISTED BELOW Current Visit: Yes (6) Cirrhosis of liver Status: Chronic Assessment and plan: SEE PLAN OF CARE LISTED BELOW Current Visit: Yes Qualifiers: Hepatic cirrhosis type: alcoholic cirrhosis (7) Thrombocytopenia Status: Acute Assessment and plan: SEE PLAN OF CARE LISTED BELOW Current Visit: Yes (8) Coagulopathy Status: Acute Assessment and plan: SEE PLAN OF CARE LISTED BELOW Current Visit: Yes (9) Altered mental status Status: Acute Assessment and plan: SEE PLAN OF CARE LISTED BELOW Current Visit: Yes (10) End stage liver disease Status: Acute Assessment and plan: SEE PLAN OF CARE LISTED BELOW Current Visit: Yes (11) Hypokalemia Status: Acute Assessment and plan: SEE PLAN OF CARE LISTED BELOW Current Visit: Yes Cardiology - PN: Subj Interval history: DISPATCHER RELAY: (NEW) DR. MENG Patient is being seen in the CCU. He is intubated, sedated. SUMMARY: Mr. Mariscal, 36ChM, with a past medical history notable for cirrhosis of liver (diagnosed three years ago) related to alcohol abuse. Patient was admitted November 30, 2016 with altered mental status. Patient required intubation in order to protect his airway while being sedated due to combativeness. He was found to be have significantly elevated ammonia levels, severely anemic, thrombocytopenic, coagulopathic, severely hypokalemic. Troponin was noted to be mildly elevated and cardiology was consulted. EKG is abnormal but did not reflect STEMI. DECEMBER 01, 2016: Patient remains intubated and critically ill. At this time he is requiring dopamine, Levophed. He is on IV Ativan and currently being transfused with packed red blood cells. Troponin only minimally increased this morning. Echocardiogram reveals EF 65% without significant valvular abnormality. He remains in a sinus tachycardia. Be treated with antibiotics. He does have UTI. He remains critically ill. DECEMBER 02, 2016: No improvement overnight. He still requiring 2 pressors. He is being treated with sodium bicarbonate infusion, frequently repleting his potassium for low potassium levels consistent with cirrhosis. He continues to require numerous transfusions of packed red blood cells. Cardiac biomarkers are inconsistent with acute coronary syndrome. Most likely related to severe metabolic abnormality. Nothing to add this morning. Will further discuss with Dr. Meng and await additional recommendations. ASSESSMENT/PLAN: 1. CIRRHOSIS OF LIVER - continue current plan of care. 2. AMS - continue current plan of care 3. ANEMIA - following hemoglobin and hematocrit closely. Currently receiving transfusion 4. THROMOBOCYTOPENIA -continue to monitor closely. Dr. Lennon consulted and appreciate his input. 5. COAGULOPATHIC STATE - multiple areas bleeding. Hematomas noted bilaterally in both groins, slightly better this morning. Obviously, not a candidate for anticoagulation such as Lovenox or aspirin. 6. HYPOKALEMIA - remains hypokalemic and currently on the potassium replacement protocol. 7. ALCOHOLISM - continue current plan of care 8. CARDIAC MURMUR - echo revealed no significant cardiac abnormality. 9. RENAL FAILURE - uncertain if this is acute on chronic however he is currently stage III. 10. ELEVATED TROPONIN - Continues to minimally increase. This is thought to be related to his significant metabolic disarray, not related to an acute coronary syndrome. When possible, patient will need aspirin, Lovenox, beta blockade and nitrates. Unfortunately, not a candidate at this time due to hypotension. 11. SINUS TACHYCARDIA - eventually, would like to introduce a beta-grecia, particularly Propanolol which will also be good for possible varices. Unfortunately, patient's blood pressure and allow for introduction of such. Exam (Progress Note) - Constitutional Vitals: Period Temp Pulse Resp BP Sys/Cotto Pulse Ox Last 24 Hr 97.8 F-100 F 98-131 11-29 86-130/27-59 97-100 Exam: General: [Appears critically ill. Intubated ] HEENT: [Normocephalic, atraumatic. Mucous membranes moist. No jaundice noted. Conjunctiva moist and clear, sclerae anicteric] Neck: Unable to assess for JVD due to habitus. No thyromegaly or lymphadenopathy noted. No carotid bruit appreciated Cardiac: [Fast rate, regular rhythm. [No murmur appreciated this murmur. Lungs: [Rhonchi noted throughout. Symmetrical chest wall movements noted. Abdomen: Soft, bowel sounds normoactive. Nontender and nondistended. No abdominal bruit or thrill noted. No masses noted. Musculoskeletal: No fluid collection. Decreased range of motion is noted. Extremities: No clubbing, cyanosis noted. [ General edema 1+] Upper extremity pulses 2+. Lower extremity pulses 1+. Capillary refill less than 3 seconds. Skin: No unusual lesions or rashes. No skin breakdown appreciated. Neuro: Sedated. No essential tremor is appreciated. Result/EKG - Labs CBC & BMP: 12/02/16 04:30 12/02/16 04:30 Lab Results: I have reviewed the past 24 hour labs Labs: Laboratory Results - last 24 hr 11/30/16 12/01/16 12/01/16 Unknown 04:36 10:38 WBC RBC Hgb Hct MCV MCH MCHC RDW Plt Count MPV Neut % (Auto) Lymph % (Auto) [place] % (Auto) Eos % (Auto) Baso % (Auto) Neut # (Auto) Lymph # (Auto) [place] # (Auto) Eos # (Auto) Baso # (Auto) Total Counted Immature Gran % Nucleated RBC % Immature Gran # Segmented Neutrophils Band Neutrophils Lymphocytes Monocytes Basophils Metamyelocytes Myelocytes Nucleated RBCs Nucleated RBCs # Platelet Estimate Hypochromasia Anisocytosis Microcytosis Target Cells INR PT Patient/Control Mix Fibrinogen D-Dimer, Quantitative ABG pH ABG pCO2 ABG pO2 ABG HCO3 ABG Total CO2 ABG O2 Saturation ABG Base Excess FiO2 Sodium Potassium Chloride Carbon Dioxide Anion Gap BUN Creatinine GFR Calculation BUN/Creatinine Ratio Glucose POC Glucose Calculated Osmolality Calcium Magnesium Total Bilirubin 14.60 H* Total Creatine Kinase 533 H CK-MB (CK-2) 4.8 H Troponin I 0.946 H Blood Type Antibody Screen Crossmatch See Detail Blood Bank Comment 12/01/16 12/01/16 12/01/16 10:38 10:38 11:00 WBC 11.1 RBC 2.76 L D Hgb 8.7 L D Hct 24.4 L MCV 88.4 MCH 32 MCHC 35.7 RDW 14.8 Plt Count 23 L* D MPV 9.5 L Neut % (Auto) 59.8 Lymph % (Auto) 19.8 L [place] % (Auto) 18.9 H Eos % (Auto) 0.8 Baso % (Auto) 0.2 Neut # (Auto) 6.6 Lymph # (Auto) 2.2 [place] # (Auto) 2.1 H Eos # (Auto) 0.1 Baso # (Auto) 0.0 Total Counted 100 Immature Gran % 0.5 Nucleated RBC % 0.5 Immature Gran # 0.06 Segmented Neutrophils 64 Band Neutrophils 1 Lymphocytes 16 L Monocytes 18 H Basophils 1.0 H Metamyelocytes Myelocytes Nucleated RBCs Nucleated RBCs # 0.05 Platelet Estimate Decreased Hypochromasia 1+ Anisocytosis Microcytosis Slight Target Cells Slight INR 1.8 PT Patient/Control Mix 19.9 D Fibrinogen 103 L D-Dimer, Quantitative 8.4 ABG pH ABG pCO2 ABG pO2 ABG HCO3 ABG Total CO2 ABG O2 Saturation ABG Base Excess FiO2 Sodium Potassium Chloride Carbon Dioxide Anion Gap BUN Creatinine GFR Calculation BUN/Creatinine Ratio Glucose POC Glucose Calculated Osmolality Calcium Magnesium Total Bilirubin Total Creatine Kinase CK-MB (CK-2) Troponin I Blood Type Antibody Screen Crossmatch Blood Bank Comment 12/01/16 12/01/16 12/02/16 16:20 16:20 00:29 WBC RBC Hgb Hct MCV MCH MCHC RDW Plt Count MPV Neut % (Auto) Lymph % (Auto) [place] % (Auto) Eos % (Auto) Baso % (Auto) Neut # (Auto) Lymph # (Auto) [place] # (Auto) Eos # (Auto) Baso # (Auto) Total Counted Immature Gran % Nucleated RBC % Immature Gran # Segmented Neutrophils Band Neutrophils Lymphocytes Monocytes Basophils Metamyelocytes Myelocytes Nucleated RBCs Nucleated RBCs # Platelet Estimate Hypochromasia Anisocytosis Microcytosis Target Cells INR PT Patient/Control Mix Fibrinogen 94 L* D-Dimer, Quantitative ABG pH ABG pCO2 ABG pO2 ABG HCO3 ABG Total CO2 ABG O2 Saturation ABG Base Excess FiO2 Sodium Potassium Chloride Carbon Dioxide Anion Gap BUN Creatinine GFR Calculation BUN/Creatinine Ratio Glucose POC Glucose 74 Calculated Osmolality Calcium Magnesium Total Bilirubin Total Creatine Kinase 374 H D CK-MB (CK-2) 2.5 Troponin I 1.140 H D Blood Type Antibody Screen Crossmatch Blood Bank [facility] 12/02/16 12/02/16 12/02/16 04:30 04:30 04:30 WBC 11.0 RBC 2.12 L D Hgb 6.7 L D Hct 18.6 L MCV 87.7 MCH 32 MCHC 36.0 RDW 15.5 Plt Count 41 L D MPV 10.5 Neut % (Auto) 59.1 Lymph % (Auto) 22.3 [place] % (Auto) 17.3 H Eos % (Auto) 0.5 Baso % (Auto) 0.1 Neut # (Auto) 6.5 Lymph # (Auto) 2.5 [place] # (Auto) 1.9 H Eos # (Auto) 0.1 Baso # (Auto) 0.0 Total Counted 100 Immature Gran % 0.7 Nucleated RBC % 0.2 Immature Gran # 0.08 Segmented Neutrophils 74 Band Neutrophils 2 Lymphocytes 16 L Monocytes 3 Basophils Metamyelocytes 1 Myelocytes 4 Nucleated RBCs 2 Nucleated RBCs # 0.02 Platelet Estimate Decreased Hypochromasia 1+ Anisocytosis 1+ Microcytosis Target Cells 1+ INR PT Patient/Control Mix Fibrinogen D-Dimer, Quantitative ABG pH ABG pCO2 ABG pO2 ABG HCO3 ABG Total CO2 ABG O2 Saturation ABG Base Excess FiO2 Sodium 147 H Potassium 2.3 L* Chloride 107 Carbon Dioxide 29 Anion Gap 13.3 BUN 14 Creatinine 1.90 H GFR Calculation 53 BUN/Creatinine Ratio 7.00 Glucose 61 L POC Glucose Calculated Osmolality 290.4 Calcium 7.6 L Magnesium 2.3 Total Bilirubin Total Creatine Kinase CK-MB (CK-2) Troponin I Blood Type Cancelled Antibody Screen Cancelled Crossmatch See Detail Blood Bank Comment Cancelled 12/02/16 12/02/16 12/02/16 04:32 04:49 05:07 WBC RBC Hgb Hct MCV MCH MCHC RDW Plt Count MPV Neut % (Auto) Lymph % (Auto) [place] % (Auto) Eos % (Auto) Baso % (Auto) Neut # (Auto) Lymph # (Auto) [place] # (Auto) Eos # (Auto) Baso # (Auto) Total Counted Immature Gran % Nucleated RBC % Immature Gran # Segmented Neutrophils Band Neutrophils Lymphocytes Monocytes Basophils Metamyelocytes Myelocytes Nucleated RBCs Nucleated RBCs # Platelet Estimate Hypochromasia Anisocytosis Microcytosis Target Cells INR PT Patient/Control Mix Fibrinogen D-Dimer, Quantitative ABG pH 7.511 H ABG pCO2 38.0 ABG pO2 141.7 H ABG HCO3 29.7 H ABG Total CO2 30.9 H ABG O2 Saturation 98.4 ABG Base Excess 6.2 H FiO2 50.00 Sodium Potassium Chloride Carbon Dioxide Anion Gap BUN Creatinine GFR Calculation BUN/Creatinine Ratio Glucose POC Glucose 53 L 169 H Calculated Osmolality Calcium Magnesium Total Bilirubin Total Creatine Kinase CK-MB (CK-2) Troponin I Blood Type Antibody Screen Crossmatch Blood Bank Comment - Diagnostic Findings Procedure: Chest x-ray: report reviewed by me - EKG EKG results: interpreted by me EKG shows: tachycardia
[2016-12-02] MEDS ORDERED: LORAZEPAM IV SCH (10:00)
[2016-12-02] MEDS ORDERED: SODIUM CHLORIDE 0.9% IV SCH (10:00)
--- NOTE | 2016-12-02 10:07 | XRay Report ---
History ventilator management Comparison 12/01/2016 Mediastinal contour is unchanged. ET tube tip remains at T4 The lungs remain under aerated with some mild patchy and stranding right lung opacities in the lower lung york bilaterally. The upper lung york are relatively clear Impression: Continued hypoaeration changes in both lung bases PROCEDURE INTERPRETED AT [facility] DEPARTMENT OF RADIOLOGY Final Report Signed by: Dr. Deanna Hagan
[2016-12-02] MEDS ORDERED: COSYNTROPIN 0.25 MG VIAL IV ONE (11:30)
[2016-12-02] MEDS: DEXAMETHASONE 4 MG/1 ML VIAL IV SCH ×2 (12:06→21:53)
[2016-12-02] MEDS: DOPamine 800 MG/250 ML PREMIX IV SCH (13:42)
[2016-12-02 14:02] LABS: Hematocrit 23.9 VOL% (42.0-52.0); Hemoglobin 8.6 GM/DL (14.0-18.0)
[2016-12-02] MEDS: VANCOMYCIN INJ 1,250 MG in SODIUM CHLORIDE 0.9% 250 ML IV SCH (15:51)
[2016-12-03] MEDS: LORazepam INJ 40 MG in DEXTROSE 5% 30 ML IV SCH ×3 (00:20→07:11)
[2016-12-03] MEDS: NOREPINEPHRINE 16 MG in SODIUM CHLORIDE 0.9% 234 ML IV SCH ×2 (01:05→22:13)
[2016-12-03] MEDS: POTASSIUM CHLORIDE RIDER 20 MEQ in PREMIX 1 EACH IV PRN ×5 (01:20→18:36)
[2016-12-03] MEDS ORDERED: LABETALOL 20 MG/4 ML SYRINGE IV PRN (02:17)
[2016-12-03] MEDS: SODIUM ACETATE 150 MEQ in STERILE WATER INJ 850 ML IV SCH (02:25)
[2016-12-03 03:18] LABS: ABG HCO3 31.9 MMOL/L (20-26); ABG Oxygen Saturation 98.5 % (95-100); ABG PCO2 41.9 MM HG (35-48); ABG PO2 134.4 MM HG (80-95); ABG TCO2 33.2 MMOL/L (23-27); Allen Test Positive; Pt O2 Delivery Device Ventilator
[2016-12-03] MEDS: ALBUMIN 25% 25 GM in PREMIX 1 EACH IV SCH (04:37)
[2016-12-03] MEDS: DEXAMETHASONE 4 MG/1 ML VIAL IV SCH ×3 (04:38→20:27)
[2016-12-03] MEDS: PHENYLEPHRINE INJ 160 MG in SODIUM CHLORIDE 0.9% 234 ML IV PRN ×2 (05:18→16:06)
[2016-12-03 05:35] LABS: Basophils % 0.1 % (0.0-0.8); Hematocrit 22.4 VOL% (42.0-52.0); Hemoglobin 8.1 GM/DL (14.0-18.0); Immature Granulocytes % 0.8 %; Immature Granulocytes Absolute 0.08 #; Lymphocytes # 1.2 10*3/uL (1.4-4.0); Lymphocytes % 11.9 % (21.2-54.2); Mean Corpuscular HGB Conc 36.2 GM/DL (32-36); Mean Corpuscular Hemoglobin 33 PG (27-34); Mean Corpuscular Volume 90.3 FL (87-102); Mean Platelet Volume 9.7 FL (9.6-12.0); Monocytes # 0.9 10*3/uL (0.11-0.8); Monocytes % 8.6 % (1.7-12.7); NRBC # 0.02 10*3/uL; Neutrophils # 7.8 10*3/uL (1.4-7.4); Neutrophils % 78.6 % (38.7-73.9); Red Blood Count 2.48 MC/CUMM (3.8-5.5); Red Cell Distribution Width 17.6 % (9.3-17.3); White Blood Count 9.9 T/CUMM (4-12)
[2016-12-03 05:40] LABS: Platelet Count 39 T/CUMM (130-400)
[2016-12-03 05:41] LABS: Alanine Aminotransferase 22 U/L (16-61); Aspartate Amino Transferase 52 U/L (0-37)
[2016-12-03 06:01] LABS: Calcium 7.9 MG/DL (8.5-10.1); Magnesium 2.4 MG/DL (1.8-2.4); Osmolality,Calculated 301.7 MOS/KG (273-304); Potassium 3.1 MMOL/L (3.5-5.1)
[2016-12-03] MEDS: PIPERACILLIN/TAZOBACTAM 3,375 MG in SODIUM CHLORIDE 0.9% 100 ML IV SCH ×3 (06:13→22:12)
[2016-12-03 07:43] LABS: Hypochromasia 2+
[2016-12-03 07:44] LABS: Basophilic Stippling Slight; Microcytosis Slight
--- NOTE | 2016-12-03 07:45 | Hospitalist Progress Note ---
Hospitalist: Subjective Interval history: BP improved and pt was able to be weaned of Levophed overnight after starting decadron. He is still on Neonephrine at this time. Still intubated and sedated. Off Ativan drip. No fever. Exam - Constitutional Vitals: Period Temp Pulse Resp BP Sys/Cotto Pulse Ox Last 24 Hr 97.5 F-98.7 F 77-106 10-22 87-119/33-73 99-100 Exam: General: intubated and sedated but arousable. Chronically ill-appearing, jaundiced HEENT :pupils are reactive to light and equal, icteric sclera noted, ET tube in place so unable to visualize his posterior oropharynx; Nares are patent no discharge or epistaxis noted Neck: Supple no lymphadenopathy or JVD noted Cardiovascular: RRR, 1/6 systolic murmur Lungs: Mostly clear anteriorly of upper lobes, diminished at the bases nonlabored Abdomen: Soft, distended, hypoactive bowel sounds, difficult to assess for hepatosplenomegaly or masses given his body habitus EXT: Warm and well-perfused without any clubbing or cyanosis. +trace edema diffusely SKIN: Ecchymoses scattered on extremities Results - Labs CBC & BMP: 12/03/16 04:45 12/03/16 04:45 - Impressions (1) Severe Sepsis due to suspected GPC pneumonia and Enterobacter UTI and GPC bacteremia with septic shock and possibly adrenal insufficiency - Cont IV Zosyn and Vancomycin. Pharmacy adjusting vanc - Cont Norepinephrine as needed for MAP >/= 65. Cortisol stimulation test suggests adrenal insufficiency. F/U Blood cultures, urine cultures and sputum cultures. Cont empiric antibiotics (Vanc and Zosyn) for now. I discussed with micro and studies are still pending at this time. (2) Acute metabolic encephalopathy possibly due to hyperammonemia (hepatic encephalopathy) +/- possibly due to seizures and chronic alcohol intake- improving Status: Acute Current Visit: Yes - 11/30 CT head showed paranasal sinus disease with small fluid within the right maxillary sinus which could reflect an acute component. No definite acute abnormality otherwise. Mild global volume loss which is considered advanced for patient age. Mild periventricular and subcortical hypoattenuation noted which is nonspecific. Considerations include demyelinating process, chronic microvascular ischemic change, and vasculitis. - Prolactin was 99. RPR was not reactive - Neuro checks - on lactulose rectally. Ammonia improved to 26 today. Resume lactulose as needed since NPO for now. - Start Thiamine IV (2) Acute hypoxic respiratory failure - Vent support. Bronchodilators. Pulm following. Serial CXR and ABG - CXR 12/02 showed lungs remain under aerated with some mild patchy and stranding right lung opacities in the lower lung york bilaterally. The upper lung york are relatively clear. - CXR 12/03 showed Worsening infiltrate at the left base. Endotracheal tube has advanced to the elvis and needs to be pulled back about 2 cm. (3) Hypokalemia Status: Acute Current Visit: Yes - replacing. Mg and Phos are normal - Monitor on telemetry (4) End stage liver disease/ cirrhosis Status: Acute Current Visit: Yes - GI following. Supportive care. (5) Acute renal failure with Metabolic acidosis due to lactic acidosis- improving with treatment Status: Acute Current Visit: Yes - adjust IVF given hypernatremia and metabolic acidosis is now corrected. Serial labs. (7) Thrombocytopenia suspected due to liver disease and +/- TTP Status: Acute Current Visit: Yes - transfuse as needed. DIC panel reviewed. Goal fibrinogen is > 150. haptoglobin is low with suspicion for TTP and LDH elevated suggesting TTP. - Hematology has seen patient and signed off. Did not feel patient was a candidate for plasmapheresis. (8) Profound anemia likely due to chronic disease and sequestration and hemolytic process Status: - Transfusing. H and H now stable. Hopefully steroids will help. (10) Elevated troponin - cardiology has seen. Recs reviewed ppx: PPI/ SCDS Discussed with nurse. I have spent 45 minutes with this patient. D/W Mother Courtney and daughter at [phone] and updated. They have decided on DNR. Overall prognosis poor. I will be away several days. One of my associates will follow in my absence.
--- NOTE | 2016-12-03 07:48 | Pulmonology Progress Note ---
Pulmonary - PN: Subj Interval history: This 36-year-old male has advanced cirrhosis felt to be due to alcohol. He had a markedly elevated ammonia level of 300+ on admission. He starting to wake up a little bit. He is on mechanical ventilation. Hematocrit is down to 18 and he will be transfused today. He is doing some CPAP trials. Not able to extubate him until mental status is better. 12/03/2016 patient doing CPAP. ABGs improved. Will decrease FiO2. Progress with CPAP trials. Await improvement in mental status before deciding about extubation versus tracheostomy. Exam (Progress Note) - Constitutional Vitals: Period Temp Pulse Resp BP Sys/Cotto Pulse Ox Last 24 Hr 97.5 F-98.7 F 77-106 10-22 87-118/33-73 99-100 Exam: Patient is jaundiced. Unresponsive. Vital signs normal except pulse around 100 -110. Pupils reactive. Orotracheal tube in place. Neck is supple. Chest reveals equal breath sounds. Does have a few crackles at bases. Heart rate is slightly elevated. No murmurs. Abdomen has ascites. Bowel sounds present. Extremities no clubbing cyanosis. He does have peripheral edema. Little change from yesterday Results - Labs CBC & BMP: 12/03/16 04:45 12/03/16 04:45 Lab Results: I have reviewed the past 24 hour labs - Diagnostic Findings Procedure: Chest x-ray: image reviewed by me (Left basilar infiltrate with atelectasis. Right lung looks a little better. ET tube acceptable location) Assessment and Plan (1) Urinary tract infection Status: Acute Assessment and plan: On empiric Zosyn. Await final identification of organisms. 12/03/2016 continuing antibiotics for UTI. Grew Enterobacter. Sensitive to Zosyn. Could de-escalate to Rocephin if desired. Current Visit: Yes (2) Cirrhosis of liver Status: Chronic Assessment and plan: Has end-stage cirrhosis felt to be due to alcohol. Current Visit: Yes (3) Hepatic encephalopathy Status: Acute Assessment and plan: He is starting to be a little bit more active. Requiring some sedation to keep from fighting the ventilator. 12/03/2016 starting to be a little bit more really active when sedation is held. Current Visit: Yes (4) End stage liver disease Status: Acute Assessment and plan: Prognosis is poor. 12/03/2016 again prognosis poor. Likely the cause of encephalopathy. Current Visit: Yes
[2016-12-03] MEDS: PANTOPRAZOLE 40 MG VIAL IV SCH ×2 (08:30→20:27)
[2016-12-03] MEDS: DEXTROSE 5% NACL 0.22% 1,000 ML IV SCH ×2 (09:10→22:13)
--- NOTE | 2016-12-03 09:20 | XRay Report ---
Portable chest. Indication: Ventilated patient. Comparison: December 02, 2016. The heart is borderline enlarged with left ventricular hypertrophy. The lung volumes are small. There is a left basilar infiltrate, which has worsened in the interval. There is a left-sided pleural effusion. Distal tip of the endotracheal tube is almost at the elvis it needs to be retracted a couple of centimeters. Stable osseous structures. Impression: Worsening infiltrate at the left base. Endotracheal tube has advanced to the elvis and needs to be pulled back about 2 cm. These findings were discussed with the patient's nurse in the CCU. PROCEDURE INTERPRETED AT [facility] DEPARTMENT OF RADIOLOGY Final Report Signed by: Dr. Daniela Hagan
--- NOTE | 2016-12-03 09:28 | Gastrointestinal Progress Note ---
Assessment and Plan (1) Cirrhosis of liver Status: Chronic Current Visit: Yes Qualifiers: Hepatic cirrhosis type: alcoholic cirrhosis (2) Anemia Status: Acute Current Visit: Yes (3) Altered mental status Status: Acute Current Visit: Yes (4) Other specified counseling Status: Acute Current Visit: No Gastroenterology - PN: Subj Interval history: PLEASE NOTE -- automatic citation of patient information is unavoidable in this electronic note. I have made a reasonable effort to review the information cited , but it is not a part of my evaluation, impression, or recommendation unless specifically discussed in the dictated text that follows. As well, voice recognition software was used in the creation of this clinical note. Reasonable effort was made to identify and correct gross errors. Despite proofreading, errors in ice cream shop associate may be present, including nonsense verbiage at times. If you encounter such an error, please contact me at for discussion and correction. -- Cristofer Chief complaint: cirrhosis Subjective: the patient is a 28-year-old male seen for follow-up of alcoholic cirrhosis. The patient remains critically ill, intubated, and sedated. The patient has been transitioned to DNR status overnight. He has been off of sedation for several hours arousing and not following commands. He is tolerating CPAP trial. Medications: albumin, albuterol, lorazepam, norepinephrine, Protonix, phenylephrine, Zosyn, potassium chloride, vancomycin, normal saline Review of Symptoms: unable to provide Physical examination: Vital Signs: Current vital signs reviewed. General Appearance: lying in bed. Intubated. Head: Normocephalic. Eyes: positive scleral icterus. No scleral injection. No conjunctival pallor. Oral Cavity: Odor of breath was normal. No drooling was observed. Lips showed no abnormalities. Lungs: Respiration rhythm and depth was normal. Cardiovascular: Heart rate and rhythm were normal. Abdomen: abdomen was not distended. Abdominal auscultation revealed positive bowel sounds. Ascites was not discovered. Abdominal palpation revealed no tenderness and no hepatosplenomegaly. Musculoskeletal System: musculoskeletal system was grossly normal. Neurological: patient grimaces minimally but perceptively with abdominal palpation. He is otherwise unresponsive. Skin: Gen. appearance was normal. Color and pigmentation were normal. No skin lesions were appreciated. Laboratory: white blood count 9.9, hemoglobin 8.1, hematocrit 22.4, platelets 39 , ALT 22, AST 52, bilirubin not reported, creatinine 1.9, INR not reported, MELD not calculated due to lack of data Microbiology: blood culture taken November 30, 2016 -- gram-positive cocci in one bottle Radiology: reviewed with no pertinent changes noted. Impressions: 1. Cirrhosis -- this appears to be acute on chronic liver injury due to continued alcohol use. There is no significant change overnight. Short-term mortality prediction remains high. I recommend continued aggressive electrolyte and volume control and minimization of potentially hepatotoxic medications to whatever extent possible. Though he is not a transplant candidate, should he continue at this level of acuity, some consideration could be given to transferring to a transplant center for higher order care with transplant hepatology. Possibilities include the [facility] in [place], [facility] in [place], and [facility] [place]. 2. Anemia -- the patient is at risk for chronic bleeding from portal hypertensive gastropathy and portal hypertensive colopathy. He is also at risk from peptic ulcer disease and variceal bleeding. Fortunately, there is not evidence of overt or hemodynamically significant bleeding at present and urgent endoscopy is not indicated. His blood counts have trended down slowly and transfusion has been ordered. This is reasonable, and I would leave this to the discretion of his pulmonary/critical care physician. 3. Altered mental status -- this is likely multifactorial with some contribution from hepatic encephalopathy. I recommend continued lactulose for prophylaxis. 4. Other specified counseling -- Patient seen for greater than 30 minutes. Greater than 50% of this time was spent reviewing and arranging care. Recommendations: -- continued aggressive volume, glucose, and electrolyte management -- minimize potentially hepatotoxic medications to whatever extent possible -- minimize hepatically cleared and potentially mental status altering medication to whatever extent possible -- continue monitoring blood counts with transfusion as indicated -- continued lactulose therapy -- consider transfer request for higher order care (not transplant evaluation) at center with transplant hepatology -- we will continue to follow with you. Dr. Marcus will resume G.I. care for this patient tomorrow. Exam (Progress Note) - Constitutional Vitals: Period Temp Pulse Resp BP Sys/Cotto Pulse Ox Last 24 Hr 97.5 F-98.5 F 77-106 10-21 87-118/33-73 99-100 Results - Labs CBC & BMP: 12/03/16 04:45 12/03/16 04:45
--- NOTE | 2016-12-03 10:55 | XRay Report ---
History is ventilator management, ET tube retracted Chest one view 12/03/2016 at 10:30 AM Comparison with earlier the same day The heart is mildly enlarged The ET tube is been retracted in the interval. The tip is now at T4, 3 cm above the elvis There remains a hazy opacity in the lower third left chest with more focal consolidation in the left lower lobe. Mild hazy opacities in the right base remain. Small underlying effusion suspected particularly on the left Impression: 1. Interval repositioning of ET tube with no significant change in left greater than right infiltrates PROCEDURE INTERPRETED AT [facility] DEPARTMENT OF RADIOLOGY Final Report Signed by: Dr. Deanna Hagan
[2016-12-03] MEDS: THIAMINE 200 MG/2 ML VIAL IV SCH (10:56)
[2016-12-03] MEDS: DOPamine 800 MG/250 ML PREMIX IV SCH (13:51)
[2016-12-03] MEDS: VANCOMYCIN INJ 1,250 MG in SODIUM CHLORIDE 0.9% 250 ML IV SCH (15:16)
--- NOTE | 2016-12-03 16:24 | Cardiology Progress Note ---
Assessment and Plan (1) Elevated troponin Status: Acute Assessment and plan: 12/03/16: Avitia zone elevated troponin, but probably due to his metabolic disarray, not ACS Can wean and extubate when mental status is better Discussion was had with the family by the hospitalist. I understand he is now DNR. I believe that is reasonable given his multiple medical problems and his cirrhosis Continue to watch for arrhythmias or evidence of ischemia. Current Visit: Yes (2) Altered mental status Status: Acute Current Visit: Yes (3) Anemia Status: Acute Current Visit: Yes (4) Coagulopathy Status: Acute Current Visit: Yes (5) End stage liver disease Status: Acute Current Visit: Yes (6) Hepatic encephalopathy Status: Acute Current Visit: Yes (7) Thrombocytopenia Status: Acute Current Visit: Yes (8) Urinary tract infection Status: Acute Current Visit: Yes (9) Cirrhosis of liver Status: Chronic Current Visit: Yes Qualifiers: Hepatic cirrhosis type: alcoholic cirrhosis Cardiology - PN: Subj Interval history: On the vent. He is sedated or has decreased mental status. Exam (Progress Note) - Constitutional Vitals: Period Temp Pulse Resp BP Sys/Cotto Pulse Ox Last 24 Hr 97.5 F-98.5 F 76-103 10-26 87-120/32-56 98-100 Exam: HEENT: Pupils equal, reactive to light and accommodation Neck: NoJVD or bruit Lungs clear to auscultation Heart: Regular rhythm rate with normal S1 and S2. Apical S4 Abdomen: No hepatosplenomegaly Spine/extremities: No clubbing, cyanosis, or edema Neuro: Unresponsive Psych: Cannot assess due to neuro status Result/EKG - Labs CBC & BMP: 12/03/16 04:45 12/03/16 14:40 Lab Results: I have reviewed the past 24 hour labs Labs: Laboratory Results - last 24 hr 12/02/16 12/02/16 12/02/16 17:01 22:40 23:45 WBC RBC Hgb Hct MCV MCH MCHC RDW Plt Count MPV Neut % (Auto) Lymph % (Auto) [place] % (Auto) Eos % (Auto) Baso % (Auto) Neut # (Auto) Lymph # (Auto) [place] # (Auto) Eos # (Auto) Baso # (Auto) Immature Gran % Nucleated RBC % Immature Gran # Nucleated RBCs # Hypochromasia Basophilic Stippling Microcytosis ABG pH ABG pCO2 ABG pO2 ABG HCO3 ABG Total CO2 ABG O2 Saturation ABG Base Excess FiO2 Sodium Potassium 3.2 L Chloride Carbon Dioxide Anion Gap BUN Creatinine GFR Calculation BUN/Creatinine Ratio Glucose POC Glucose 79 89 Calculated Osmolality Calcium Magnesium AST ALT Ammonia 12/03/16 12/03/16 12/03/16 03:10 04:45 04:45 WBC 9.9 RBC 2.48 L Hgb 8.1 L Hct 22.4 L MCV 90.3 MCH 33 MCHC 36.2 H RDW 17.6 H Plt Count 39 L* MPV 9.7 Neut % (Auto) 78.6 H Lymph % (Auto) 11.9 L [place] % (Auto) 8.6 Eos % (Auto) 0.0 Baso % (Auto) 0.1 Neut # (Auto) 7.8 H Lymph # (Auto) 1.2 L [place] # (Auto) 0.9 H Eos # (Auto) 0.0 Baso # (Auto) 0.0 Immature Gran % 0.8 Nucleated RBC % 0.2 Immature Gran # 0.08 Nucleated RBCs # 0.02 Hypochromasia 2+ Basophilic Stippling Slight Microcytosis Slight ABG pH 7.500 H ABG pCO2 41.9 ABG pO2 134.4 H ABG HCO3 31.9 H ABG Total CO2 33.2 H ABG O2 Saturation 98.5 ABG Base Excess 8.0 H FiO2 50.00 Sodium 152 H Potassium 3.1 L Chloride 109 H Carbon Dioxide 31 Anion Gap 15.1 H BUN 18 Creatinine 1.90 H GFR Calculation 53 BUN/Creatinine Ratio 9.00 Glucose 88 POC Glucose Calculated Osmolality 301.7 Calcium 7.9 L Magnesium 2.4 AST ALT Ammonia 12/03/16 12/03/16 12/03/16 04:45 05:07 09:01 WBC RBC Hgb Hct MCV MCH MCHC RDW Plt Count MPV Neut % (Auto) Lymph % (Auto) [place] % (Auto) Eos % (Auto) Baso % (Auto) Neut # (Auto) Lymph # (Auto) [place] # (Auto) Eos # (Auto) Baso # (Auto) Immature Gran % Nucleated RBC % Immature Gran # Nucleated RBCs # Hypochromasia Basophilic Stippling Microcytosis ABG pH ABG pCO2 ABG pO2 ABG HCO3 ABG Total CO2 ABG O2 Saturation ABG Base Excess FiO2 Sodium Potassium Chloride Carbon Dioxide Anion Gap BUN Creatinine GFR Calculation BUN/Creatinine Ratio Glucose POC Glucose 98 Calculated Osmolality Calcium Magnesium AST 52 H ALT 22 Ammonia 26 12/03/16 12/03/16 11:14 14:40 WBC RBC Hgb Hct MCV MCH MCHC RDW Plt Count MPV Neut % (Auto) Lymph % (Auto) [place] % (Auto) Eos % (Auto) Baso % (Auto) Neut # (Auto) Lymph # (Auto) [place] # (Auto) Eos # (Auto) Baso # (Auto) Immature Gran % Nucleated RBC % Immature Gran # Nucleated RBCs # Hypochromasia Basophilic Stippling Microcytosis ABG pH ABG pCO2 ABG pO2 ABG HCO3 ABG Total CO2 ABG O2 Saturation ABG Base Excess FiO2 Sodium Potassium 3.2 L Chloride Carbon Dioxide Anion Gap BUN Creatinine GFR Calculation BUN/Creatinine Ratio Glucose POC Glucose 126 H Calculated Osmolality Calcium Magnesium AST ALT Ammonia
--- NOTE | 2016-12-03 23:38 | Event Note ---
CCU called me regarding this patient who had been into the tubing to the cough and was losing his tidal volumes. At the time of my assessment patient was oxygenating effectively however because it was not putting start a volume. We needed to change the endotracheal tube for that reason. Using a guide tract the old tube was removed. A 7.5 tube was replaced through the direction of the guide tract. Patient was able to resume putting start of volumes and his saturation was gone up from 93 at the end of the reintubation March. There was air movement on both sides of the lung. Chest x-ray has been ordered. I will check a chest x-ray as soon as it is done.
[2016-12-04] MEDS: POTASSIUM CHLORIDE RIDER 20 MEQ in PREMIX 1 EACH IV PRN ×3 (01:46→10:23)
[2016-12-04 02:45] LABS: ABG Base Excess 5.3 MMOL/L (-2.5-2.5); ABG HCO3 29.1 MMOL/L (20-26); ABG Oxygen Saturation 95.8 % (95-100); ABG PCO2 47.1 MM HG (35-48); ABG PH 7.419 (7.35-7.45); ABG PO2 75.3 MM HG (80-95); ABG TCO2 28.1 MMOL/L (23-27); Allen Test Positive; Pt O2 Delivery Device Ventilator
[2016-12-04] MEDS: DEXAMETHASONE 4 MG/1 ML VIAL IV SCH ×3 (04:04→20:15)
[2016-12-04] MEDS: LORazepam INJ 40 MG in DEXTROSE 5% 30 ML IV SCH (04:35)
[2016-12-04 06:18] LABS: Basophils % 0.1 % (0.0-0.8); Hematocrit 21.4 VOL% (42.0-52.0); Hemoglobin 7.4 GM/DL (14.0-18.0); Immature Granulocytes % 0.7 %; Immature Granulocytes Absolute 0.09 #; Lymphocytes # 1.2 10*3/uL (1.4-4.0); Lymphocytes % 9.5 % (21.2-54.2); Mean Corpuscular HGB Conc 34.6 GM/DL (32-36); Mean Corpuscular Hemoglobin 33 PG (27-34); Mean Corpuscular Volume 94.3 FL (87-102); Mean Platelet Volume 10.5 FL (9.6-12.0); Monocytes # 1.1 10*3/uL (0.11-0.8); NRBC # 0.03 10*3/uL; Neutrophils # 9.9 10*3/uL (1.4-7.4); Neutrophils % 80.7 % (38.7-73.9); Red Blood Count 2.27 MC/CUMM (3.8-5.5); Red Cell Distribution Width 19.1 % (9.3-17.3); White Blood Count 12.3 T/CUMM (4-12)
[2016-12-04] MEDS: PIPERACILLIN/TAZOBACTAM 3,375 MG in SODIUM CHLORIDE 0.9% 100 ML IV SCH ×3 (06:22→22:53)
[2016-12-04 06:30] LABS: INR 3.1; Platelet Count 31 T/CUMM (130-400)
[2016-12-04 06:37] LABS: PT Patient Result 35.4 SECS
[2016-12-04 06:47] LABS: Bilirubin,Direct 5.4 MG/DL (0.0-0.20); Bilirubin,Indirect 9.7 MG/DL (0.0-1.0); Calcium 7.9 MG/DL (8.5-10.1); Magnesium 2.5 MG/DL (1.8-2.4); Osmolality,Calculated 304.3 MOS/KG (273-304); Potassium 3.8 MMOL/L (3.5-5.1); Total Protein 5.1 G/DL (6.4-8.3)
[2016-12-04 06:51] LABS: Phosphorous 2.8 MG/DL (2.5-4.9)
[2016-12-04 06:53] LABS: Band Neutrophils 1 % (0-10); Bilirubin,Total 15.1 MG/DL (0.2-1.0); Hypochromasia 1+; Lymphocytes 8 % (20-55); Platelet Estimate Decreased; Segmented Neutrophils 84 % (50-85); Total Cells Counted 100
[2016-12-04 06:54] LABS: Microcytosis Slight; Ovalocytes Slight
--- NOTE | 2016-12-04 07:36 | XRay Report ---
Referring Physician: Juan Ingram MD Exam: XR chest 1V portable Date: December 03, 2016 at 11:26 PM Reason: Reintubation Comparison: Chest one view portable December 03, 2016 at 10:26 AM Findings: An endotracheal tube is in place with its distal tip at the level of the aortic arch, projecting approximately 3 cm above the elvis. The cardiac silhouette is upper normal in size. There are opacities within both lower lung zones. This likely represents atelectasis and possibly pulmonary edema. Superimposed pneumonia is not excluded. No pneumothorax is identified, but there is mild bilateral pleural fluid. The osseous structures appear stable. Impression: 1. An endotracheal tube is in place as above. 2. There are persistent opacities within both lower lung zones and mild bilateral pleural fluid. PROCEDURE INTERPRETED AT [facility] DEPARTMENT OF RADIOLOGY Final Report Signed by: Dr. Edda Terrell
--- NOTE | 2016-12-04 08:19 | XRay Report ---
Referring Physician: Mao Morgan Exam: XR chest 1V portable Date: December 04, 2016 at 3:13 AM Reason: On ventilator Comparison: Chest one view portable December 03, 2016 Findings: An endotracheal tube is again in place. The cardiac silhouette is upper normal in size. There are opacities within both lower lung zones. This likely represents atelectasis and possibly pulmonary edema or pneumonia. No pneumothorax is identified, but mild bilateral pleural fluid is suspected. The osseous structures appear stable. Impression: There has been no significant change. PROCEDURE INTERPRETED AT [facility] DEPARTMENT OF RADIOLOGY Final Report Signed by: Dr. Edda Terrell
--- NOTE | 2016-12-04 08:33 | Cardiology Progress Note ---
Assessment and Plan (1) Elevated troponin Status: Acute Assessment and plan: SEE PLAN OF CARE LISTED BELOW Current Visit: Yes (2) Murmur, cardiac Status: Acute Assessment and plan: SEE PLAN OF CARE LISTED BELOW Current Visit: Yes (3) Hematoma of abdominal wall Status: Acute Assessment and plan: SEE PLAN OF CARE LISTED BELOW Current Visit: No Qualifiers: Encounter type: initial encounter Qualified Code(s): S30.1XXA - Contusion of abdominal wall, initial encounter (4) Jaundice, acholuric Status: Acute Assessment and plan: SEE PLAN OF CARE LISTED BELOW Current Visit: Yes (5) Symptomatic anemia Status: Acute Assessment and plan: SEE PLAN OF CARE LISTED BELOW Current Visit: Yes (6) Cirrhosis of liver Status: Chronic Assessment and plan: SEE PLAN OF CARE LISTED BELOW Current Visit: Yes Qualifiers: Hepatic cirrhosis type: alcoholic cirrhosis (7) Thrombocytopenia Status: Acute Assessment and plan: SEE PLAN OF CARE LISTED BELOW Current Visit: Yes (8) Coagulopathy Status: Acute Assessment and plan: SEE PLAN OF CARE LISTED BELOW Current Visit: Yes (9) Altered mental status Status: Acute Assessment and plan: SEE PLAN OF CARE LISTED BELOW Current Visit: Yes (10) End stage liver disease Status: Acute Assessment and plan: SEE PLAN OF CARE LISTED BELOW Current Visit: Yes (11) Hypokalemia Status: Acute Assessment and plan: SEE PLAN OF CARE LISTED BELOW Current Visit: Yes Cardiology - PN: Subj Interval history: HENRI TO COMPLETE Exam (Progress Note) - Constitutional Vitals: Period Temp Pulse Resp BP Sys/Cotto Pulse Ox Last 24 Hr 97.4 F-98.6 F 55-97 10-26 90-168/32-90 93-99 Result/EKG - Labs CBC & BMP: 12/04/16 06:00 12/04/16 06:00 Labs: Laboratory Results - last 24 hr 12/03/16 12/03/16 12/03/16 09:01 11:14 14:40 WBC RBC Hgb Hct MCV MCH MCHC RDW Plt Count MPV Neut % (Auto) Lymph % (Auto) [place] % (Auto) Eos % (Auto) Baso % (Auto) Neut # (Auto) Lymph # (Auto) [place] # (Auto) Eos # (Auto) Baso # (Auto) Total Counted Immature Gran % Nucleated RBC % Immature Gran # Segmented Neutrophils Band Neutrophils Lymphocytes Monocytes Nucleated RBCs # Platelet Estimate Hypochromasia Microcytosis Ovalocytes Morphology Comment INR PT Patient/Control Mix ABG pH ABG pCO2 ABG pO2 ABG HCO3 ABG Total CO2 ABG O2 Saturation ABG Base Excess FiO2 Sodium Potassium 3.2 L Chloride Carbon Dioxide Anion Gap BUN Creatinine GFR Calculation BUN/Creatinine Ratio Glucose POC Glucose 126 H Calculated Osmolality Calcium Phosphorus Magnesium Total Bilirubin Direct Bilirubin Indirect Bilirubin AST ALT Alkaline Phosphatase Ammonia 26 Total Protein Albumin 12/03/16 12/04/16 12/04/16 16:45 00:20 00:34 WBC RBC Hgb Hct MCV MCH MCHC RDW Plt Count MPV Neut % (Auto) Lymph % (Auto) [place] % (Auto) Eos % (Auto) Baso % (Auto) Neut # (Auto) Lymph # (Auto) [place] # (Auto) Eos # (Auto) Baso # (Auto) Total Counted Immature Gran % Nucleated RBC % Immature Gran # Segmented Neutrophils Band Neutrophils Lymphocytes Monocytes Nucleated RBCs # Platelet Estimate Hypochromasia Microcytosis Ovalocytes Morphology Comment INR PT Patient/Control Mix ABG pH ABG pCO2 ABG pO2 ABG HCO3 ABG Total CO2 ABG O2 Saturation ABG Base Excess FiO2 Sodium Potassium 3.3 L Chloride Carbon Dioxide Anion Gap BUN Creatinine GFR Calculation BUN/Creatinine Ratio Glucose POC Glucose 132 H 188 H Calculated Osmolality Calcium Phosphorus Magnesium Total Bilirubin Direct Bilirubin Indirect Bilirubin AST ALT Alkaline Phosphatase Ammonia Total Protein Albumin 12/04/16 12/04/16 12/04/16 02:20 05:53 06:00 WBC RBC Hgb Hct MCV MCH MCHC RDW Plt Count MPV Neut % (Auto) Lymph % (Auto) [place] % (Auto) Eos % (Auto) Baso % (Auto) Neut # (Auto) Lymph # (Auto) [place] # (Auto) Eos # (Auto) Baso # (Auto) Total Counted Immature Gran % Nucleated RBC % Immature Gran # Segmented Neutrophils Band Neutrophils Lymphocytes Monocytes Nucleated RBCs # Platelet Estimate Hypochromasia Microcytosis Ovalocytes Morphology Comment INR PT Patient/Control Mix ABG pH 7.419 ABG pCO2 47.1 ABG pO2 75.3 L ABG HCO3 29.1 H ABG Total CO2 28.1 H ABG O2 Saturation 95.8 ABG Base Excess 5.3 H FiO2 40.00 Sodium Potassium Chloride Carbon Dioxide Anion Gap BUN Creatinine GFR Calculation BUN/Creatinine Ratio Glucose POC Glucose 214 H Calculated Osmolality Calcium Phosphorus 2.8 Magnesium Total Bilirubin Direct Bilirubin Indirect Bilirubin AST ALT Alkaline Phosphatase Ammonia 45 H Total Protein Albumin 12/04/16 12/04/16 12/04/16 06:00 06:00 06:00 WBC 12.3 H RBC 2.27 L Hgb 7.4 L Hct 21.4 L MCV 94.3 MCH 33 MCHC 34.6 RDW 19.1 H Plt Count 31 L* D MPV 10.5 Neut % (Auto) 80.7 H Lymph % (Auto) 9.5 L [place] % (Auto) 9.0 Eos % (Auto) 0.0 Baso % (Auto) 0.1 Neut # (Auto) 9.9 H Lymph # (Auto) 1.2 L [place] # (Auto) 1.1 H Eos # (Auto) 0.0 Baso # (Auto) 0.0 Total Counted 100 Immature Gran % 0.7 Nucleated RBC % 0.2 Immature Gran # 0.09 Segmented Neutrophils 84 Band Neutrophils 1 Lymphocytes 8 L Monocytes 7 Nucleated RBCs # 0.03 Platelet Estimate Decreased Hypochromasia 1+ Microcytosis Slight Ovalocytes Slight Morphology Comment INR 3.1 PT Patient/Control Mix 35.4 D ABG pH ABG pCO2 ABG pO2 ABG HCO3 ABG Total CO2 ABG O2 Saturation ABG Base Excess FiO2 Sodium Potassium Chloride Carbon Dioxide Anion Gap BUN Creatinine GFR Calculation BUN/Creatinine Ratio Glucose POC Glucose Calculated Osmolality Calcium Phosphorus Magnesium Total Bilirubin 15.10 H* Direct Bilirubin 5.40 H Indirect Bilirubin 9.7 H AST 62 H ALT 27 Alkaline Phosphatase 62 Ammonia Total Protein 5.1 L Albumin 3.0 L 12/04/16 06:00 WBC RBC Hgb Hct MCV MCH MCHC RDW Plt Count MPV Neut % (Auto) Lymph % (Auto) [place] % (Auto) Eos % (Auto) Baso % (Auto) Neut # (Auto) Lymph # (Auto) [place] # (Auto) Eos # (Auto) Baso # (Auto) Total Counted Immature Gran % Nucleated RBC % Immature Gran # Segmented Neutrophils Band Neutrophils Lymphocytes Monocytes Nucleated RBCs # Platelet Estimate Hypochromasia Microcytosis Ovalocytes Morphology Comment INR PT Patient/Control Mix ABG pH ABG pCO2 ABG pO2 ABG HCO3 ABG Total CO2 ABG O2 Saturation ABG Base Excess FiO2 Sodium 148 H Potassium 3.8 Chloride 109 H Carbon Dioxide 30 Anion Gap 12.8 BUN 29 H Creatinine 2.20 H GFR Calculation 46 BUN/Creatinine Ratio 13.00 Glucose 190 H POC Glucose Calculated Osmolality 304.3 H Calcium 7.9 L Phosphorus Magnesium 2.5 H Total Bilirubin Direct Bilirubin Indirect Bilirubin AST ALT Alkaline Phosphatase Ammonia Total Protein Albumin
--- NOTE | 2016-12-04 09:37 | Cardiology Progress Note ---
<Wendy Wan E - Last Filed: 12/04/16 09:21> Assessment and Plan - Time spent with patient Time spent with patient: Greater than 30 minutes (1) Elevated troponin Status: Acute Assessment and plan: SEE PLAN OF CARE LISTED BELOW Current Visit: Yes (2) Murmur, cardiac Status: Chronic Assessment and plan: SEE PLAN OF CARE LISTED BELOW Current Visit: Yes (3) Hematoma of abdominal wall Status: Acute Assessment and plan: SEE PLAN OF CARE LISTED BELOW Current Visit: No Qualifiers: Encounter type: initial encounter Qualified Code(s): S30.1XXA - Contusion of abdominal wall, initial encounter (4) Jaundice, acholuric Status: Acute Assessment and plan: SEE PLAN OF CARE LISTED BELOW Current Visit: Yes (5) Symptomatic anemia Status: Acute Assessment and plan: SEE PLAN OF CARE LISTED BELOW Current Visit: Yes (6) Cirrhosis of liver Status: Chronic Assessment and plan: SEE PLAN OF CARE LISTED BELOW Current Visit: Yes Qualifiers: Hepatic cirrhosis type: alcoholic cirrhosis (7) Thrombocytopenia Status: Acute Assessment and plan: SEE PLAN OF CARE LISTED BELOW Current Visit: Yes (8) Coagulopathy Status: Acute Assessment and plan: SEE PLAN OF CARE LISTED BELOW Current Visit: Yes (9) Altered mental status Status: Acute Assessment and plan: SEE PLAN OF CARE LISTED BELOW Current Visit: Yes (10) End stage liver disease Status: Acute Assessment and plan: SEE PLAN OF CARE LISTED BELOW Current Visit: Yes (11) Hypokalemia Status: Resolved Assessment and plan: SEE PLAN OF CARE LISTED BELOW Current Visit: Yes Cardiology - PN: Subj Interval history: ENTERTAINMENT DIRECTOR: (NEW) DR. GRAY Patient is being seen in the CCU. He is intubated. SUMMARY: Mr. Mariscal, 36ChM, with a past medical history notable for cirrhosis of liver (diagnosed three years ago) related to alcohol abuse. Patient was admitted November 30, 2016 with altered mental status. Patient required intubation in order to protect his airway while being sedated due to combativeness. He was found to be have significantly elevated ammonia levels, severely anemic, thrombocytopenic, coagulopathic, severely hypokalemic. Troponin was noted to be mildly elevated and cardiology was consulted. This is not acute coronary syndrome. EKG is abnormal but did not reflect STEMI. Also being treated for urinary tract infection. DECEMBER 04, 2016: Patient remains critically ill. He is not responding to commands. He is not on sedation. He is now DNR. Remains on 2 pressors. Attempting to wean patient from ventilator has been slow. He has required numerous transfusions due to his coagulopathy. Hemoglobin and hematocrit 7.4/ 21.4 respectively. Platelets 31. Creatinine 2.2. Critically ill. Will discuss with Dr. Mina and await additional recommendations. ASSESSMENT/PLAN: 1. CIRRHOSIS OF LIVER - continue current plan of care. 2. AMS - continue current plan of care 3. ANEMIA - following hemoglobin and hematocrit closely. Currently receiving transfusion 4. THROMOBOCYTOPENIA - continue to monitor closely. Dr. Lennon consulted and appreciate his input. 5. COAGULOPATHIC STATE - multiple areas bleeding. Hematomas noted bilaterally in both groins, slightly better this morning. Obviously, not a candidate for anticoagulation such as Lovenox or Aspirin. 6. HYPOKALEMIA -has required aggressive repleting since hospitalization. This morning his potassium is finally within normal limits (3.5.) 7. ALCOHOLISM - continue current plan of care 8. CARDIAC MURMUR - echo revealed no significant cardiac abnormality. 9. RENAL FAILURE - uncertain if this is acute on chronic however he is currently stage III. 10. ELEVATED TROPONIN -not considered acute coronary syndrome. May be related to significant metabolic disarray, acute illness. When possible, patient will need aspirin, Lovenox, beta blockade and nitrates. Unfortunately, not a candidate for these medications at this time. 11. SINUS TACHYCARDIA - now normal sinus rhythm. Eventually, would like to introduce a beta-grecia, particularly Propanolol which will also be good for possible varices. Exam (Progress Note) - Constitutional Vitals: Period Temp Pulse Resp BP Sys/Cotto Pulse Ox Last 24 Hr 97.4 F-98.6 F 55-97 10-26 91-168/34-90 93-99 Exam: General: [Appears critically ill. Intubated ] HEENT: [Normocephalic, atraumatic. Mucous membranes moist. No jaundice noted. Conjunctiva moist and clear, sclerae anicteric] Neck: Unable to assess for JVD due to habitus. No thyromegaly or lymphadenopathy noted. No carotid bruit appreciated Cardiac: [Fast rate, regular rhythm. [No murmur appreciated this murmur. Lungs: [Rhonchi noted throughout. Symmetrical chest wall movements noted. Abdomen: Soft, bowel sounds normoactive. Nontender and nondistended. No abdominal bruit or thrill noted. No masses noted. Musculoskeletal: No fluid collection. Decreased range of motion is noted. Extremities: No clubbing, cyanosis noted. [ General edema 1+] Upper extremity pulses 2+. Lower extremity pulses 1+. Capillary refill less than 3 seconds. Skin: No unusual lesions or rashes. No skin breakdown appreciated. Neuro: Sedated. No essential tremor is appreciated. Result/EKG - Labs CBC & BMP: 12/04/16 06:00 12/04/16 08:35 Lab Results: I have reviewed the past 24 hour labs Labs: Laboratory Results - last 24 hr 12/03/16 12/03/16 12/03/16 09:01 11:14 14:40 WBC RBC Hgb Hct MCV MCH MCHC RDW Plt Count MPV Neut % (Auto) Lymph % (Auto) [place] % (Auto) Eos % (Auto) Baso % (Auto) Neut # (Auto) Lymph # (Auto) [place] # (Auto) Eos # (Auto) Baso # (Auto) Total Counted Immature Gran % Nucleated RBC % Immature Gran # Segmented Neutrophils Band Neutrophils Lymphocytes Monocytes Nucleated RBCs # Platelet Estimate Hypochromasia Microcytosis Ovalocytes Morphology Comment INR PT Patient/Control Mix ABG pH ABG pCO2 ABG pO2 ABG HCO3 ABG Total CO2 ABG O2 Saturation ABG Base Excess FiO2 Sodium Potassium 3.2 L Chloride Carbon Dioxide Anion Gap BUN Creatinine GFR Calculation BUN/Creatinine Ratio Glucose POC Glucose 126 H Calculated Osmolality Calcium Phosphorus Magnesium Total Bilirubin Direct Bilirubin Indirect Bilirubin AST ALT Alkaline Phosphatase Ammonia 26 Total Protein Albumin Blood Type Antibody Screen Crossmatch 12/03/16 12/04/16 12/04/16 16:45 00:20 00:34 WBC RBC Hgb Hct MCV MCH MCHC RDW Plt Count MPV Neut % (Auto) Lymph % (Auto) [place] % (Auto) Eos % (Auto) Baso % (Auto) Neut # (Auto) Lymph # (Auto) [place] # (Auto) Eos # (Auto) Baso # (Auto) Total Counted Immature Gran % Nucleated RBC % Immature Gran # Segmented Neutrophils Band Neutrophils Lymphocytes Monocytes Nucleated RBCs # Platelet Estimate Hypochromasia Microcytosis Ovalocytes Morphology Comment INR PT Patient/Control Mix ABG pH ABG pCO2 ABG pO2 ABG HCO3 ABG Total CO2 ABG O2 Saturation ABG Base Excess FiO2 Sodium Potassium 3.3 L Chloride Carbon Dioxide Anion Gap BUN Creatinine GFR Calculation BUN/Creatinine Ratio Glucose POC Glucose 132 H 188 H Calculated Osmolality Calcium Phosphorus Magnesium Total Bilirubin Direct Bilirubin Indirect Bilirubin AST ALT Alkaline Phosphatase Ammonia Total Protein Albumin Blood Type Antibody Screen Crossmatch 12/04/16 12/04/16 12/04/16 02:20 05:53 06:00 WBC RBC Hgb Hct MCV MCH MCHC RDW Plt Count MPV Neut % (Auto) Lymph % (Auto) [place] % (Auto) Eos % (Auto) Baso % (Auto) Neut # (Auto) Lymph # (Auto) [place] # (Auto) Eos # (Auto) Baso # (Auto) Total Counted Immature Gran % Nucleated RBC % Immature Gran # Segmented Neutrophils Band Neutrophils Lymphocytes Monocytes Nucleated RBCs # Platelet Estimate Hypochromasia Microcytosis Ovalocytes Morphology Comment INR PT Patient/Control Mix ABG pH 7.419 ABG pCO2 47.1 ABG pO2 75.3 L ABG HCO3 29.1 H ABG Total CO2 28.1 H ABG O2 Saturation 95.8 ABG Base Excess 5.3 H FiO2 40.00 Sodium Potassium Chloride Carbon Dioxide Anion Gap BUN Creatinine GFR Calculation BUN/Creatinine Ratio Glucose POC Glucose 214 H Calculated Osmolality Calcium Phosphorus 2.8 Magnesium Total Bilirubin Direct Bilirubin Indirect Bilirubin AST ALT Alkaline Phosphatase Ammonia 45 H Total Protein Albumin Blood Type Antibody Screen Crossmatch 12/04/16 12/04/16 12/04/16 06:00 06:00 06:00 WBC 12.3 H RBC 2.27 L Hgb 7.4 L Hct 21.4 L MCV 94.3 MCH 33 MCHC 34.6 RDW 19.1 H Plt Count 31 L* D MPV 10.5 Neut % (Auto) 80.7 H Lymph % (Auto) 9.5 L [place] % (Auto) 9.0 Eos % (Auto) 0.0 Baso % (Auto) 0.1 Neut # (Auto) 9.9 H Lymph # (Auto) 1.2 L [place] # (Auto) 1.1 H Eos # (Auto) 0.0 Baso # (Auto) 0.0 Total Counted 100 Immature Gran % 0.7 Nucleated RBC % 0.2 Immature Gran # 0.09 Segmented Neutrophils 84 Band Neutrophils 1 Lymphocytes 8 L Monocytes 7 Nucleated RBCs # 0.03 Platelet Estimate Decreased Hypochromasia 1+ Microcytosis Slight Ovalocytes Slight Morphology Comment INR 3.1 PT Patient/Control Mix 35.4 D ABG pH ABG pCO2 ABG pO2 ABG HCO3 ABG Total CO2 ABG O2 Saturation ABG Base Excess FiO2 Sodium Potassium Chloride Carbon Dioxide Anion Gap BUN Creatinine GFR Calculation BUN/Creatinine Ratio Glucose POC Glucose Calculated Osmolality Calcium Phosphorus Magnesium Total Bilirubin 15.10 H* Direct Bilirubin 5.40 H Indirect Bilirubin 9.7 H AST 62 H ALT 27 Alkaline Phosphatase 62 Ammonia Total Protein 5.1 L Albumin 3.0 L Blood Type Antibody Screen Crossmatch 12/04/16 12/04/16 12/04/16 06:00 06:00 08:35 WBC RBC Hgb Hct MCV MCH MCHC RDW Plt Count MPV Neut % (Auto) Lymph % (Auto) [place] % (Auto) Eos % (Auto) Baso % (Auto) Neut # (Auto) Lymph # (Auto) [place] # (Auto) Eos # (Auto) Baso # (Auto) Total Counted Immature Gran % Nucleated RBC % Immature Gran # Segmented Neutrophils Band Neutrophils Lymphocytes Monocytes Nucleated RBCs # Platelet Estimate Hypochromasia Microcytosis Ovalocytes Morphology Comment INR PT Patient/Control Mix ABG pH ABG pCO2 ABG pO2 ABG HCO3 ABG Total CO2 ABG O2 Saturation ABG Base Excess FiO2 Sodium 148 H Potassium 3.8 3.5 Chloride 109 H Carbon Dioxide 30 Anion Gap 12.8 BUN 29 H Creatinine 2.20 H GFR Calculation 46 BUN/Creatinine Ratio 13.00 Glucose 190 H POC Glucose Calculated Osmolality 304.3 H Calcium 7.9 L Phosphorus Magnesium 2.5 H Total Bilirubin Direct Bilirubin Indirect Bilirubin AST ALT Alkaline Phosphatase Ammonia Total Protein Albumin Blood Type A POSITIVE Antibody Screen Negative Crossmatch See Detail - Diagnostic Findings Procedure: Chest x-ray: report reviewed by me - EKG EKG results: interpreted by il EKG shows: sinus rhythm <Randy Mina - Last Filed: 12/04/16 09:53> Exam (Progress Note) - Constitutional Vitals: Period Temp Pulse Resp BP Sys/Cotto Pulse Ox Last 24 Hr 97.4 F-98.6 F 55-104 10-26 91-168/34-90 93-99 Result/EKG - Labs CBC & BMP: 12/04/16 06:00 12/04/16 08:35 Labs: Laboratory Results - last 24 hr 12/03/16 12/03/16 12/03/16 11:14 14:40 16:45 WBC RBC Hgb Hct MCV MCH MCHC RDW Plt Count MPV Neut % (Auto) Lymph % (Auto) [place] % (Auto) Eos % (Auto) Baso % (Auto) Neut # (Auto) Lymph # (Auto) [place] # (Auto) Eos # (Auto) Baso # (Auto) Total Counted Immature Gran % Nucleated RBC % Immature Gran # Segmented Neutrophils Band Neutrophils Lymphocytes Monocytes Nucleated RBCs # Platelet Estimate Hypochromasia Microcytosis Ovalocytes Morphology Comment INR PT Patient/Control Mix ABG pH ABG pCO2 ABG pO2 ABG HCO3 ABG Total CO2 ABG O2 Saturation ABG Base Excess FiO2 Sodium Potassium 3.2 L Chloride Carbon Dioxide Anion Gap BUN Creatinine GFR Calculation BUN/Creatinine Ratio Glucose POC Glucose 126 H 132 H Calculated Osmolality Calcium Phosphorus Magnesium Total Bilirubin Direct Bilirubin Indirect Bilirubin AST ALT Alkaline Phosphatase Ammonia Total Protein Albumin Blood Type Antibody Screen Crossmatch 12/04/16 12/04/16 12/04/16 00:20 00:34 02:20 WBC RBC Hgb Hct MCV MCH MCHC RDW Plt Count MPV Neut % (Auto) Lymph % (Auto) [place] % (Auto) Eos % (Auto) Baso % (Auto) Neut # (Auto) Lymph # (Auto) [place] # (Auto) Eos # (Auto) Baso # (Auto) Total Counted Immature Gran % Nucleated RBC % Immature Gran # Segmented Neutrophils Band Neutrophils Lymphocytes Monocytes Nucleated RBCs # Platelet Estimate Hypochromasia Microcytosis Ovalocytes Morphology Comment INR PT Patient/Control Mix ABG pH 7.419 ABG pCO2 47.1 ABG pO2 75.3 L ABG HCO3 29.1 H ABG Total CO2 28.1 H ABG O2 Saturation 95.8 ABG Base Excess 5.3 H FiO2 40.00 Sodium Potassium 3.3 L Chloride Carbon Dioxide Anion Gap BUN Creatinine GFR Calculation BUN/Creatinine Ratio Glucose POC Glucose 188 H Calculated Osmolality Calcium Phosphorus Magnesium Total Bilirubin Direct Bilirubin Indirect Bilirubin AST ALT Alkaline Phosphatase Ammonia Total Protein Albumin Blood Type Antibody Screen Crossmatch 12/04/16 12/04/16 12/04/16 05:53 06:00 06:00 WBC RBC Hgb Hct MCV MCH MCHC RDW Plt Count MPV Neut % (Auto) Lymph % (Auto) [place] % (Auto) Eos % (Auto) Baso % (Auto) Neut # (Auto) Lymph # (Auto) [place] # (Auto) Eos # (Auto) Baso # (Auto) Total Counted Immature Gran % Nucleated RBC % Immature Gran # Segmented Neutrophils Band Neutrophils Lymphocytes Monocytes Nucleated RBCs # Platelet Estimate Hypochromasia Microcytosis Ovalocytes Morphology Comment INR 3.1 PT Patient/Control Mix 35.4 D ABG pH ABG pCO2 ABG pO2 ABG HCO3 ABG Total CO2 ABG O2 Saturation ABG Base Excess FiO2 Sodium Potassium Chloride Carbon Dioxide Anion Gap BUN Creatinine GFR Calculation BUN/Creatinine Ratio Glucose POC Glucose 214 H Calculated Osmolality Calcium Phosphorus 2.8 Magnesium Total Bilirubin Direct Bilirubin Indirect Bilirubin AST ALT Alkaline Phosphatase Ammonia 45 H Total Protein Albumin Blood Type Antibody Screen Crossmatch 12/04/16 12/04/16 12/04/16 06:00 06:00 06:00 WBC 12.3 H RBC 2.27 L Hgb 7.4 L Hct 21.4 L MCV 94.3 MCH 33 MCHC 34.6 RDW 19.1 H Plt Count 31 L* D MPV 10.5 Neut % (Auto) 80.7 H Lymph % (Auto) 9.5 L [place] % (Auto) 9.0 Eos % (Auto) 0.0 Baso % (Auto) 0.1 Neut # (Auto) 9.9 H Lymph # (Auto) 1.2 L [place] # (Auto) 1.1 H Eos # (Auto) 0.0 Baso # (Auto) 0.0 Total Counted 100 Immature Gran % 0.7 Nucleated RBC % 0.2 Immature Gran # 0.09 Segmented Neutrophils 84 Band Neutrophils 1 Lymphocytes 8 L Monocytes 7 Nucleated RBCs # 0.03 Platelet Estimate Decreased Hypochromasia 1+ Microcytosis Slight Ovalocytes Slight Morphology Comment INR PT Patient/Control Mix ABG pH ABG pCO2 ABG pO2 ABG HCO3 ABG Total CO2 ABG O2 Saturation ABG Base Excess FiO2 Sodium 148 H Potassium 3.8 Chloride 109 H Carbon Dioxide 30 Anion Gap 12.8 BUN 29 H Creatinine 2.20 H GFR Calculation 46 BUN/Creatinine Ratio 13.00 Glucose 190 H POC Glucose Calculated Osmolality 304.3 H Calcium 7.9 L Phosphorus Magnesium 2.5 H Total Bilirubin 15.10 H* Direct Bilirubin 5.40 H Indirect Bilirubin 9.7 H AST 62 H ALT 27 Alkaline Phosphatase 62 Ammonia Total Protein 5.1 L Albumin 3.0 L Blood Type Antibody Screen Crossmatch 12/04/16 12/04/16 06:00 08:35 WBC RBC Hgb Hct MCV MCH MCHC RDW Plt Count MPV Neut % (Auto) Lymph % (Auto) [place] % (Auto) Eos % (Auto) Baso % (Auto) Neut # (Auto) Lymph # (Auto) [place] # (Auto) Eos # (Auto) Baso # (Auto) Total Counted Immature Gran % Nucleated RBC % Immature Gran # Segmented Neutrophils Band Neutrophils Lymphocytes Monocytes Nucleated RBCs # Platelet Estimate Hypochromasia Microcytosis Ovalocytes Morphology Comment INR PT Patient/Control Mix ABG pH ABG pCO2 ABG pO2 ABG HCO3 ABG Total CO2 ABG O2 Saturation ABG Base Excess FiO2 Sodium Potassium 3.5 Chloride Carbon Dioxide Anion Gap BUN Creatinine GFR Calculation BUN/Creatinine Ratio Glucose POC Glucose Calculated Osmolality Calcium Phosphorus Magnesium Total Bilirubin Direct Bilirubin Indirect Bilirubin AST ALT Alkaline Phosphatase Ammonia Total Protein Albumin Blood Type A POSITIVE Antibody Screen Negative Crossmatch See Detail
[2016-12-04] MEDS: THIAMINE 200 MG/2 ML VIAL IV SCH (10:17)
[2016-12-04] MEDS: PANTOPRAZOLE 40 MG VIAL IV SCH ×2 (10:17→20:13)
--- NOTE | 2016-12-04 10:41 | Pulmonology Progress Note ---
Pulmonary - PN: Subj Interval history: This is a 36-year-old male patient whom I saw in pulmonary consultation on 2016. I was asked to manage patient's mechanical ventilation and any pulmonary problems that should arise. My impressions were. 1. Alcoholic cirrhosis of the liver with acute on chronic liver failure resulting in altered mental status 2. Severe anemia. Note past history of B12 deficiency 3. Hypo-Tara anemia. 4. History of alcoholism 5. Thrombocytopenia 6. See past history 12/01/2016. Today's x-ray shows a right pleural effusion. There is no heart failure. I did not see any definite infiltrates. Endotracheal tube is in good position. ABGs on mechanical ventilation with an FiO2 50% show a pH 7.516, PCO2 is 27, PO2 is 186 and bicarb is 24. Ventilator adjustments have been made. Total bilirubin is 14.6 ammonia level is dropped from 292-65. CPK is elevated 525. Protein and albumin and globulin are low at 5.3, 3.2 and 2.1 respectively. Potassium is low at 2.6. CBC is pending. Admit H&H was 6.7/ 18.8. Patient's urine is growing a gram-negative nael. The patient is on antibiotics. Patient has required pressor agents to support his blood pressure. Dopamine and norepinephrine. If the patient begins to wake up we can advance his weaning protocol more rapidly. Have also requested physical therapy protocol while on mechanical ventilation. Patient appears to be on all other applicable protocols. 12/04/2016. This patient is up to stage IV to weaning protocol. His chest x- ray shows bilateral pleural effusions which are likely related to ascites. His central vasculature is top normal. ABGs on mechanical ventilation FiO2 40% shows pH 7.42, PCO2 of 47, PO2 75, bicarb 29. White count is 12,300 platelets have dropped to 31,000 and H&H is very low at 7.4/21.4. Patient's had blood cultures positive for Streptococcus salivary S and MRSA negative staph aureus. He has also had sputum positive for staph aureus and he has had a urine positive for Enterobacter. This patient is only on Zosyn. I will add Levaquin based on sensitivities. Physical exam. Vital signs. See below Neurological. Appears to have some movement in all 4 extremities and slightly arousable. Face. Symmetrical Neck. Symmetrical. No meningismus Lymphatics. No submandibular cervical supraclavicular or epitrochlear adenopathy. Chest. Loose large airway congestion Heart. Lateral PMI Abdomen. Only rare bowel sounds. Extremities. Nothing to suggest deep venous thrombophlebitis The remainder the physical exam is negative Plan. 11/30/2006 1. Mechanical ventilation with weaning protocol and physical therapy protocol 2. Daily chest x-ray and ABGs. 3. Daily lab 4. See orders 12/01/2016 1. Mechanical ventilation and weaning protocol along with physical therapy protocol. 2. Daily chest x-ray, ABGs and lab 3. See today's note above. 12/04/2016. 1. Mechanical ventilation weaning protocol and physical therapy protocol. 2. Add Levaquin. 3. See today's note above Exam (Progress Note) - Constitutional Vitals: Period Temp Pulse Resp BP Sys/Cotto Pulse Ox Last 24 Hr 97.4 F-98.6 F 55-108 10-26 91-168/34-90 93-100 Results - Labs CBC & BMP: 12/04/16 06:00 12/04/16 08:35
--- NOTE | 2016-12-04 10:41 | Gastrointestinal Progress Note ---
Assessment and Plan (1) Cirrhosis of liver Status: Chronic Assessment and plan: 12/04-off dopamine as of this morning. Findings noted as below. Plan an addendum to followed by Dr. Marcus. 12/01-no changes in current condition at present time. No overt bleeding reported. Plan an addendum to followed by Dr. Marcus. 11/30-admitted with altered mental status, history of alcoholic cirrhosis. Findings of thrombocytopenia, anemia, and hypokalemia on admission. On ventilator and sedation at this time. Received total of 3 units of packed red blood cells and to be transfused fresh frozen plasma. Plan an addendum to follow by Dr. Duarte. Current Visit: Yes Gastroenterology - PN: Subj Interval history: CC: Cirrhosis Patient is seen, remains intubated. He has been off sedation now for over 24 hours and nursing staff states that he will follow some commands at times. He is noted to have been changed to DNR over the weekend as well. He is continuing on CPAP trials at present time. Dopamine was discontinued this morning. Abdomen is soft, nontender. Noted to have positive blood cultures for staph aureus. Platelets are down at 31. Hemoglobin is dropped to 7.4 without overt bleeding. Leukocytosis noted with WBCs at 12.3. Bilirubin remains elevated at 15.1. Ammonia is trending down at 45. INR is elevated at 3.1. ROS: No acute distress at present Exam (Progress Note) - Constitutional Vitals: Period Temp Pulse Resp BP Sys/Cotto Pulse Ox Last 24 Hr 97.4 F-98.6 F 55-108 10-26 91-168/34-90 93-100 General appearance: normal weight, no acute distress - Head Head exam: Present: normal inspection, normocephalic - Eye Eye exam: Present: other (Lids and conjunctivae unremarkable). Absent: scleral icterus - ENT ENT exam: Present: normal exam, normal oropharynx - Neck Neck exam: Present: normal inspection - Respiratory Respiratory exam: Present: clear to auscultation bilaterally. Absent: rales, rhonchi, wheezes - Cardiovascular Cardiovascular exam: Present: regular rate and rhythm. Absent: diastolic murmur , JVD, systolic murmur - GI/Abdominal GI/Abdominal exam: Present: normal bowel sounds, soft. Absent: ascites, distended, mass, organomegaly, tenderness - Extremities Exam Extremities exam: Present: normal inspection, full ROM - Back Exam Back exam: Present: normal inspection - Neurological Exam Neurological exam: Present: altered - Psychiatric Psychiatric exam: Present: other - Skin Skin exam: Present: normal color, warm, dry Results - Labs CBC & BMP: 12/04/16 06:00 12/04/16 08:35 Lab Results: I have reviewed the past 24 hour labs
[2016-12-04] MEDS: LACTULOSE 160 GM/240 ML BOTTLE RECTAL SCH ×2 (11:57→21:22)
[2016-12-04] MEDS: LEVOFLOXACIN INJ 250 MG in PREMIX 1 EACH IV SCH (12:46)
[2016-12-04] MEDS: INSULIN LISPRO 100 UNIT/ML SUBCUT SCH ×2 (12:46→18:34)
[2016-12-04] MEDS: POTASSIUM CHLORIDE RIDER 10 MEQ in PREMIX 1 EACH IV PRN (13:45)
--- NOTE | 2016-12-04 13:58 | Hospitalist Progress Note ---
Assessment and Plan (1) End stage liver disease Status: Acute Assessment and plan: Mr Mariscal has acute on chronic hepatic failure with persistent coagulopathy, thrombocytopenia, bleeding with anemia, hyperbilirubinemia, low albumin, elevated ammonia complicated by bacteremia, UTI, and pneumonia with respiratory failure also. - transfuse PRBCs and platelets per parameters established by drain technician. - restart lactulose enemas as ammonia level increasing. - begin TPN - monitor renal failure- creatinine climbing again - vanc stopped. on levaquin and zosyn, watch for ID of blood culture - stop IVF, beginning TPN - begin SSI for elevations of glucose. start with low intensity SSI since he had low glucose earlier in stay. - DNR. - discussed transfer to [facility] with GI per note from weekend coverage. They do not recommend transfer at this time as there is nothing more that can be done as he is not a transplant candidate. - consider resiting central line. -off pressors, continue CPAP/ Current Visit: Yes (2) MARYBETH (acute kidney injury) Status: Acute Current Visit: Yes (3) Nutrition disorder Status: Acute Current Visit: Yes (4) Bacteremia Status: Acute Current Visit: Yes (5) Pneumonia Status: Acute Current Visit: Yes (6) Hematoma of abdominal wall Status: Acute Current Visit: No Qualifiers: Encounter type: initial encounter Qualified Code(s): S30.1XXA - Contusion of abdominal wall, initial encounter (7) Cirrhosis of liver Status: Chronic Current Visit: Yes Qualifiers: Hepatic cirrhosis type: alcoholic cirrhosis (8) Thrombocytopenia Status: Acute Current Visit: Yes (9) Coagulopathy Status: Acute Current Visit: Yes (10) Hepatic encephalopathy Status: Acute Current Visit: Yes (11) Urinary tract infection Status: Acute Current Visit: Yes (12) Anemia Status: Acute Current Visit: Yes Hospitalist: Subjective Interval history: Mr Mariscal remains critically ill this morning. He is on the vent and doing CPAP trials. He is off pressors this morning. His H&h and platelets have dropped again and will be transfused. He continues to have adequate UOP and his creatinine is 2.2. He does not have an NGT because of concerns about disturbing varices. His sedation was stopped yesterday and he will rouse to stimulation. Vanc stopped as none of his isolates required that. He is on Zosyn and levaquin was added by Dr Eddie. He was made DNR over the weekend. He is seen by GI, pulmonary, heme. He has a femoral central line. Exam - Constitutional Vitals: Period Temp Pulse Resp BP Sys/Cotto Pulse Ox Last 24 Hr 97.4 F-98.6 F 55-108 10-26 91-168/36-90 93-100 General appearance: over weight, other (somnolent on vent. ) - Head Head exam: Present: normocephalic, atraumatic - Eye Eye exam: Present: EOMI, scleral icterus - Respiratory Respiratory exam: Present: clear to auscultation bilaterally (anterior [place]ork) - Cardiovascular Cardiovascular exam: Present: regular rate and rhythm - GI/Abdominal GI/Abdominal exam: Present: normal bowel sounds, soft - Extremities Exam Extremities exam: Present: edema (anasarca, not weeping) - Neurological Exam Neurological exam: Present: altered - Skin Skin exam: Present: warm, dry Results - Labs CBC & BMP: 12/04/16 06:00 12/04/16 08:35 Lab Results: I have reviewed the past 24 hour labs
[2016-12-04] MEDS: DEXTROSE 5% NACL 0.22% 1,000 ML IV SCH (14:46)
[2016-12-04] MEDS: PHENYLEPHRINE INJ 160 MG in SODIUM CHLORIDE 0.9% 234 ML IV PRN (15:39)
[2016-12-04] MEDS: FAT EMULSION 20% 250 ML IV SCH (16:50)
[2016-12-04] MEDS ORDERED: MULTIVITAMIN INJ 10 ML in AMINO ACIDS/DEXT/LYTES 5-25% 2,000 ML IV SCH (17:00)
[2016-12-04] MEDS ORDERED: DEXTROSE 10% 1,000 ML IV PRN (17:00)
[2016-12-05] MEDS: INSULIN LISPRO 100 UNIT/ML SUBCUT SCH ×4 (00:31→18:39)
[2016-12-05 03:26] LABS: ABG PCO2 48.6 MM HG (35-48); ABG PH 7.406 (7.35-7.45); ABG TCO2 28.1 MMOL/L (23-27); Allen Test Positive; Pt O2 Delivery Device Ventilator
[2016-12-05] MEDS: DEXAMETHASONE 4 MG/1 ML VIAL IV SCH ×3 (04:04→21:23)
[2016-12-05] MEDS: LORazepam INJ 40 MG in DEXTROSE 5% 30 ML IV SCH (05:28)
[2016-12-05 05:30] LABS: Basophils % 0.1 % (0.0-0.8); Hematocrit 26.6 VOL% (42.0-52.0); Immature Granulocytes Absolute 0.13 #; Lymphocytes # 0.5 10*3/uL (1.4-4.0); Lymphocytes % 3.9 % (21.2-54.2); Mean Corpuscular HGB Conc 33.8 GM/DL (32-36); Mean Corpuscular Hemoglobin 32 PG (27-34); Mean Corpuscular Volume 93.7 FL (87-102); Mean Platelet Volume 10.3 FL (9.6-12.0); Monocytes # 1.8 10*3/uL (0.11-0.8); Monocytes % 14.4 % (1.7-12.7); NRBC # 0.08 10*3/uL; Neutrophils # 10.3 10*3/uL (1.4-7.4); Neutrophils % 80.6 % (38.7-73.9); Red Cell Distribution Width 18.9 % (9.3-17.3); White Blood Count 12.7 T/CUMM (4-12)
[2016-12-05 05:35] LABS: Red Blood Count 2.84 MC/CUMM (3.8-5.5)
[2016-12-05 05:36] LABS: Platelet Count 56 T/CUMM (130-400)
[2016-12-05 05:55] LABS: Calcium 8.7 MG/DL (8.5-10.1); Magnesium 2.5 MG/DL (1.8-2.4); Potassium 3.2 MMOL/L (3.5-5.1)
[2016-12-05 06:02] LABS: Magnesium 2.5 MG/DL (1.8-2.4); Phosphorous 2.5 MG/DL (2.5-4.9); Prealbumin 5.8 MG/DL (20-40)
[2016-12-05 06:06] LABS: Alanine Aminotransferase 41 U/L (16-61); Aspartate Amino Transferase 70 U/L (0-37)
[2016-12-05 06:08] LABS: Lymphocytes 3 % (20-55); Nucleated Red Blood Cells 1 (0-5); Segmented Neutrophils 86 % (50-85); Total Cells Counted 100
[2016-12-05 06:09] LABS: Hypochromasia 1+; Microcytosis Slight; Platelet Estimate Decreased
[2016-12-05] MEDS: PIPERACILLIN/TAZOBACTAM 3,375 MG in SODIUM CHLORIDE 0.9% 100 ML IV SCH ×3 (06:15→23:03)
[2016-12-05] MEDS: POTASSIUM CHLORIDE RIDER 20 MEQ in PREMIX 1 EACH IV PRN ×3 (06:23→21:29)
--- NOTE | 2016-12-05 06:41 | XRay Report ---
Portable chest Date: 12/05/2016 Clinical history: Ventilator management Comparison: 12/04/2016 Technique: Portable AP sitting chest Findings: The heart is borderline in size with stable endotracheal tube. Persistent diffuse parenchymal findings especially at the lung bases with small pleural effusions. Stable mediastinum and osseous structures. Impression: No significant change in the appearance of the chest when compared to the previous exam. PROCEDURE INTERPRETED AT [facility] DEPARTMENT OF RADIOLOGY Final Report Signed by: Dr. Natalie Cruz
[2016-12-05 09:09] LABS: INR 2.8
[2016-12-05 09:20] LABS: PT Patient Result 31.7 SECS
[2016-12-05] MEDS: PANTOPRAZOLE 40 MG VIAL IV SCH ×2 (09:38→21:25)
[2016-12-05] MEDS: THIAMINE 200 MG/2 ML VIAL IV SCH (09:39)
[2016-12-05] MEDS: LACTULOSE 160 GM/240 ML BOTTLE RECTAL SCH ×3 (10:30→21:22)
--- NOTE | 2016-12-05 10:34 | Pulmonology Progress Note ---
Pulmonary - PN: Subj Interval history: This is a 36-year-old male patient whom I saw in pulmonary consultation on 2016. I was asked to manage patient's mechanical ventilation and any pulmonary problems that should arise. My impressions were. 1. Alcoholic cirrhosis of the liver with acute on chronic liver failure resulting in altered mental status 2. Severe anemia. Note past history of B12 deficiency 3. Hypo-Tara anemia. 4. History of alcoholism 5. Thrombocytopenia 6. See past history 12/01/2016. Today's x-ray shows a right pleural effusion. There is no heart failure. I did not see any definite infiltrates. Endotracheal tube is in good position. ABGs on mechanical ventilation with an FiO2 50% show a pH 7.516, PCO2 is 27, PO2 is 186 and bicarb is 24. Ventilator adjustments have been made. Total bilirubin is 14.6 ammonia level is dropped from 292-65. CPK is elevated 525. Protein and albumin and globulin are low at 5.3, 3.2 and 2.1 respectively. Potassium is low at 2.6. CBC is pending. Admit H&H was 6.7/ 18.8. Patient's urine is growing a gram-negative nael. The patient is on antibiotics. Patient has required pressor agents to support his blood pressure. Dopamine and norepinephrine. If the patient begins to wake up we can advance his weaning protocol more rapidly. Have also requested physical therapy protocol while on mechanical ventilation. Patient appears to be on all other applicable protocols. 12/04/2016. This patient is up to stage IV to weaning protocol. His chest x- ray shows bilateral pleural effusions which are likely related to ascites. His central vasculature is top normal. ABGs on mechanical ventilation FiO2 40% shows pH 7.42, PCO2 of 47, PO2 75, bicarb 29. White count is 12,300 platelets have dropped to 31,000 and H&H is very low at 7.4/21.4. Patient's had blood cultures positive for Streptococcus salivary S and MRSA negative staph aureus. He has also had sputum positive for staph aureus and he has had a urine positive for Enterobacter. This patient is only on Zosyn. I will add Levaquin based on sensitivities. 12/05/2016. This patient continues to slowly improve. He was able to do more than 12 hours of CPAP on 12/04/2016. Today's x-ray shows small bilateral pleural effusions. No clear-cut atelectasis. Endotracheal tube is in good position. ABGs on FiO2 40% mechanical ventilation showed pH of 7.41, PCO2 48.6 , PO2 118 a bicarb of 29. Sodium is 150. Potassium is 3.2. Creatinine is 2.0 with a BUN of 32. Ammonia is elevated at 49. White count is 12,700. H&H is 9.0/26.6. Platelets have increased to 56,000. Cultures and sensitivity are unchanged compared to 12/04/2016. Medicines been reviewed. Labs been reviewed. Physical exam. Vital signs. See below Neurological. Appears to have some movement in all 4 extremities and slightly arousable. Face. Symmetrical Neck. Symmetrical. No meningismus Lymphatics. No submandibular cervical supraclavicular or epitrochlear adenopathy. Chest. Loose large airway congestion Heart. Lateral PMI Abdomen. Only rare bowel sounds. Extremities. Nothing to suggest deep venous thrombophlebitis The remainder the physical exam is negative Plan. 11/30/2006 1. Mechanical ventilation with weaning protocol and physical therapy protocol 2. Daily chest x-ray and ABGs. 3. Daily lab 4. See orders 12/01/2016 1. Mechanical ventilation and weaning protocol along with physical therapy protocol. 2. Daily chest x-ray, ABGs and lab 3. See today's note above. 12/04/2016. 1. Mechanical ventilation weaning protocol and physical therapy protocol. 2. Add Levaquin. 3. See today's note above 12/05/2016. 1. See today's note above. 2. Continue all present protocols per Exam (Progress Note) - Constitutional Vitals: Period Temp Pulse Resp BP Sys/Cotto Pulse Ox Last 24 Hr 97.1 F-98.2 F 56-94 9-26 72-152/30-88 95-100 Results - Labs CBC & BMP: 12/05/16 05:00 12/05/16 05:24
--- NOTE | 2016-12-05 10:58 | Gastrointestinal Progress Note ---
Assessment and Plan (1) Cirrhosis of liver Status: Chronic Assessment and plan: 12/05-currently on benito-at this time. No repeat bilirubin today. Lab findings as noted below. Plan an addendum to followed by Dr. Marcus. 12/04-off dopamine as of this morning. Findings noted as below. Plan an addendum to followed by Dr. Marcus. 12/01-no changes in current condition at present time. No overt bleeding reported. Plan an addendum to followed by Dr. Marcus. 11/30-admitted with altered mental status, history of alcoholic cirrhosis. Findings of thrombocytopenia, anemia, and hypokalemia on admission. On ventilator and sedation at this time. Received total of 3 units of packed red blood cells and to be transfused fresh frozen plasma. Plan an addendum to follow by Dr. Duarte. Current Visit: Yes Qualifiers: Hepatic cirrhosis type: alcoholic cirrhosis Gastroenterology - PN: Subj Interval history: CC: Cirrhosis Patient is seen, remains sedated and on ventilator at this time. Nursing staff states he will awaken with sedation is lifted and follows some commands. He is currently on Benito-Synephrine for blood pressure management. Transaminases noted today with AST at 70 however no bilirubin reported for today. INR is down slightly at 2.8. Platelets are up at 56. Hemoglobin is 9 however he is noted to have received 2 units of packed cells and 1 unit of platelets on yesterday. No overt bleeding reported. Abdomen is soft, nontender. Creatinine down slightly at 2.0 ROS: No acute distress noted Exam (Progress Note) - Constitutional Vitals: Period Temp Pulse Resp BP Sys/Cotto Pulse Ox Last 24 Hr 97.1 F-98.2 F 56-94 9-26 72-152/30-88 95-100 - Other Additional findings: General appearance: normal weight, no acute distress - Head Head exam: Present: normal inspection, normocephalic - Eye Eye exam: Present: other (Lids and conjunctivae unremarkable). Absent: scleral icterus - ENT ENT exam: Present: normal exam, normal oropharynx - Neck Neck exam: Present: normal inspection - Respiratory Respiratory exam: Present: clear to auscultation bilaterally. Absent: rales, rhonchi, wheezes - Cardiovascular Cardiovascular exam: Present: regular rate and rhythm. Absent: diastolic murmur , JVD, systolic murmur - GI/Abdominal GI/Abdominal exam: Present: normal bowel sounds, soft. Absent: ascites, distended, mass, organomegaly, tenderness - Extremities Exam Extremities exam: Present: normal inspection, full ROM - Back Exam Back exam: Present: normal inspection - Neurological Exam Neurological exam: Present: altered - Psychiatric Psychiatric exam: Present: other - Skin Skin exam: Present: normal color, warm, dry Results - Labs CBC & BMP: 12/05/16 05:00 12/05/16 05:24 Lab Results: I have reviewed the past 24 hour labs
[2016-12-05] MEDS: LEVOFLOXACIN INJ 250 MG in PREMIX 1 EACH IV SCH (12:11)
--- NOTE | 2016-12-05 12:16 | Hospitalist Progress Note ---
Assessment and Plan (1) End stage liver disease Status: Acute Assessment and plan: Mr Mariscal has acute on chronic hepatic failure with persistent coagulopathy, thrombocytopenia, bleeding with anemia, hyperbilirubinemia, low albumin, elevated ammonia complicated by bacteremia, UTI, and pneumonia with respiratory failure also. -continue supportive care for his acute on chronic hepatic faliure. Give Vitamin K daily for 3 days. increase lactulose enemas to q6h since ammonia remains elevated. monitor H&H and platelets and transfuse prn. -continue efforts to wean from vent. -taper Benito to off. -On levaquin day 2 and Zosyn also for MSSA in blood, strep in blood, and MSSA in sputum, and enterobacter in urine. Repeat blood cultures today. -tolerating TPN. Sodium now 150. grader patrol to adjust TPN. -acute renal failure- hepatorenal syndrome- creatinine about the same as yesterday. -hyperglycemia- on TPN and steroids. conitnue SSI. If blood culture repeat are negative, consult IR for PICC line. DNR Current Visit: Yes (2) MARYBETH (acute kidney injury) Status: Acute Current Visit: Yes (3) Nutrition disorder Status: Acute Current Visit: Yes (4) Bacteremia Status: Acute Current Visit: Yes (5) Pneumonia Status: Acute Current Visit: Yes (6) Hematoma of abdominal wall Status: Acute Current Visit: No Qualifiers: Encounter type: initial encounter Qualified Code(s): S30.1XXA - Contusion of abdominal wall, initial encounter (7) Cirrhosis of liver Status: Chronic Current Visit: Yes Qualifiers: Hepatic cirrhosis type: alcoholic cirrhosis (8) Thrombocytopenia Status: Acute Current Visit: Yes (9) Coagulopathy Status: Acute Current Visit: Yes (10) Hepatic encephalopathy Status: Acute Current Visit: Yes (11) Urinary tract infection Status: Acute Current Visit: Yes (12) Anemia Status: Acute Current Visit: Yes Hospitalist: Subjective Interval history: Mr Mariscal s about the same. He CPAPed for a long time yesterday. He will rouse to follow commands per nursing. He did not wake for me. The Benito is being tapered off. His H&h and platelets are up today and his INR is up to 2.8 2 days after last FFP given. No sign of bleeding. On TPN. UOP ok. Exam - Constitutional Vitals: Period Temp Pulse Resp BP Sys/Cotto Pulse Ox Last 24 Hr 97.1 F-98.2 F 56-85 9-26 72-152/30-88 95-100 General appearance: no acute distress, over weight - Head Head exam: Present: normocephalic, atraumatic - Eye Eye exam: Present: EOMI. Absent: scleral icterus - Respiratory Respiratory exam: Present: clear to auscultation bilaterally - Cardiovascular Cardiovascular exam: Present: regular rate and rhythm - GI/Abdominal GI/Abdominal exam: Present: normal bowel sounds, distended, soft - Extremities Exam Extremities exam: Present: edema (anasarca) - Neurological Exam Neurological exam: Present: altered - Skin Skin exam: Present: warm Results - Labs CBC & BMP: 12/05/16 05:00 12/05/16 05:24 Lab Results: I have reviewed the past 24 hour labs
[2016-12-05] MEDS ORDERED: PHYTONADIONE 5 MG TABLET PO SCH (12:30)
[2016-12-05] MEDS: FAT EMULSION 20% 250 ML IV SCH (15:27)
[2016-12-05] MEDS: PHYTONADIONE 10 MG/1 ML AMP SUBCUT SCH (17:16)
[2016-12-05] MEDS: MULTIVITAMIN INJ 10 ML in AMINO ACIDS/DEXT/LYTES 5-25% 2,000 ML IV SCH (17:16)
[2016-12-05] MEDS: POTASSIUM CHLORIDE RIDER 10 MEQ in PREMIX 1 EACH IV PRN (23:37)
[2016-12-06] MEDS: INSULIN LISPRO 100 UNIT/ML SUBCUT SCH ×5 (00:32→23:42)
[2016-12-06] MEDS: LACTULOSE 160 GM/240 ML BOTTLE RECTAL SCH ×3 (03:08→23:37)
[2016-12-06 03:48] LABS: ABG Oxygen Saturation 98.5 % (95-100); ABG PCO2 45.7 MM HG (35-48); ABG PH 7.426 (7.35-7.45); ABG TCO2 27.7 MMOL/L (23-27); Allen Test Positive; Pt O2 Delivery Device Ventilator
[2016-12-06] MEDS: DEXAMETHASONE 4 MG/1 ML VIAL IV SCH ×3 (05:38→21:51)
[2016-12-06 05:48] LABS: Basophils % 0.1 % (0.0-0.8); Hematocrit 25.7 VOL% (42.0-52.0); Hemoglobin 8.6 GM/DL (14.0-18.0); Immature Granulocytes % 0.7 %; Immature Granulocytes Absolute 0.06 #; Lymphocytes # 0.6 10*3/uL (1.4-4.0); Mean Corpuscular HGB Conc 33.5 GM/DL (32-36); Mean Corpuscular Hemoglobin 32 PG (27-34); Mean Corpuscular Volume 94.5 FL (87-102); Mean Platelet Volume 11.4 FL (9.6-12.0); Monocytes # 1.3 10*3/uL (0.11-0.8); Neutrophils # 7.2 10*3/uL (1.4-7.4); Neutrophils % 79.2 % (38.7-73.9); Red Blood Count 2.72 MC/CUMM (3.8-5.5); Red Cell Distribution Width 19.4 % (9.3-17.3); White Blood Count 9.1 T/CUMM (4-12)
[2016-12-06 05:50] LABS: Platelet Count 36 T/CUMM (130-400)
[2016-12-06 06:15] LABS: Hypochromasia 1+; Lymphocytes 3 % (20-55); Ovalocytes Slight; Platelet Estimate Decreased; Segmented Neutrophils 83 % (50-85); Total Cells Counted 100
[2016-12-06 06:16] LABS: Microcytosis Slight
[2016-12-06 06:25] LABS: Calcium 9.2 MG/DL (8.5-10.1); Magnesium 2.1 MG/DL (1.8-2.4); Osmolality,Calculated 316.6 MOS/KG (273-304); Potassium 3.6 MMOL/L (3.5-5.1)
[2016-12-06 06:28] LABS: Alanine Aminotransferase 48 U/L (16-61); Aspartate Amino Transferase 59 U/L (0-37)
[2016-12-06] MEDS: PIPERACILLIN/TAZOBACTAM 3,375 MG in SODIUM CHLORIDE 0.9% 100 ML IV SCH ×3 (06:32→21:30)
[2016-12-06 06:35] LABS: INR 3.2
[2016-12-06 06:36] LABS: PT Patient Result 36.9 SECS
--- NOTE | 2016-12-06 06:36 | XRay Report ---
Portable chest Date: 12/06/2016 Clinical history: Ventilator management Comparison: 12/05/2016 Technique: Portable AP sitting chest Findings: The heart is borderline in size with the endotracheal tube remaining in satisfactory position. Minimal reduction in the parenchymal findings at the lung bases with smaller pleural effusions. Stable mediastinum and osseous structures. Impression: Improved atelectasis/infiltration/edema with smaller pleural effusions. The endotracheal tube remains in satisfactory position. PROCEDURE INTERPRETED AT [facility] DEPARTMENT OF RADIOLOGY Final Report Signed by: Dr. Natalie Cruz
[2016-12-06] MEDS: LORazepam INJ 40 MG in DEXTROSE 5% 30 ML IV SCH (06:41)
[2016-12-06] MEDS: THIAMINE 200 MG/2 ML VIAL IV SCH (09:57)
[2016-12-06] MEDS: PHYTONADIONE 10 MG/1 ML AMP SUBCUT SCH (09:57)
[2016-12-06] MEDS: PANTOPRAZOLE 40 MG VIAL IV SCH ×2 (09:57→21:51)
[2016-12-06] MEDS: POTASSIUM CHLORIDE RIDER 20 MEQ in PREMIX 1 EACH IV PRN (10:14)
--- NOTE | 2016-12-06 10:21 | Pulmonology Progress Note ---
Pulmonary - PN: Subj Interval history: This is a 36-year-old male patient whom I saw in pulmonary consultation on 2016. I was asked to manage patient's mechanical ventilation and any pulmonary problems that should arise. My impressions were. 1. Alcoholic cirrhosis of the liver with acute on chronic liver failure resulting in altered mental status 2. Severe anemia. Note past history of B12 deficiency 3. Hypo-Tara anemia. 4. History of alcoholism 5. Thrombocytopenia 6. See past history 12/01/2016. Today's x-ray shows a right pleural effusion. There is no heart failure. I did not see any definite infiltrates. Endotracheal tube is in good position. ABGs on mechanical ventilation with an FiO2 50% show a pH 7.516, PCO2 is 27, PO2 is 186 and bicarb is 24. Ventilator adjustments have been made. Total bilirubin is 14.6 ammonia level is dropped from 292-65. CPK is elevated 525. Protein and albumin and globulin are low at 5.3, 3.2 and 2.1 respectively. Potassium is low at 2.6. CBC is pending. Admit H&H was 6.7/ 18.8. Patient's urine is growing a gram-negative nael. The patient is on antibiotics. Patient has required pressor agents to support his blood pressure. Dopamine and norepinephrine. If the patient begins to wake up we can advance his weaning protocol more rapidly. Have also requested physical therapy protocol while on mechanical ventilation. Patient appears to be on all other applicable protocols. 12/04/2016. This patient is up to stage IV to weaning protocol. His chest x- ray shows bilateral pleural effusions which are likely related to ascites. His central vasculature is top normal. ABGs on mechanical ventilation FiO2 40% shows pH 7.42, PCO2 of 47, PO2 75, bicarb 29. White count is 12,300 platelets have dropped to 31,000 and H&H is very low at 7.4/21.4. Patient's had blood cultures positive for Streptococcus salivary S and MRSA negative staph aureus. He has also had sputum positive for staph aureus and he has had a urine positive for Enterobacter. This patient is only on Zosyn. I will add Levaquin based on sensitivities. 12/05/2016. This patient continues to slowly improve. He was able to do more than 12 hours of CPAP on 12/04/2016. Today's x-ray shows small bilateral pleural effusions. No clear-cut atelectasis. Endotracheal tube is in good position. ABGs on FiO2 40% mechanical ventilation showed pH of 7.41, PCO2 48.6 , PO2 118 a bicarb of 29. Sodium is 150. Potassium is 3.2. Creatinine is 2.0 with a BUN of 32. Ammonia is elevated at 49. White count is 12,700. H&H is 9.0/26.6. Platelets have increased to 56,000. Cultures and sensitivity are unchanged compared to 12/04/2016. Medicines been reviewed. Labs been reviewed. 12/06/2016. This patient continues to improve. He is on stage of the weaning protocol. I think with his multiple other problems it will probably be another 2 or 3 days before he can be extubated. His chest x-ray shows that the endotracheal tube is in good position. He has cardiomegaly and he has small bilateral lateral pleural effusions. There is some bibasilar atelectasis present. I will evaluate this patient with fiberoptic bronchoscopy in the morning. Dr. Browning and I have discussed and reviewed this case and we have coordinated our care. We will consider and put an NG tube down the feeding. Will like to watch his ammonia level very carefully. ABGs on mechanical ventilation FiO2 40% shows a pH 7.43, PCO2 46, PO2 of 105 and a bicarb of 29. Sodium is creeping up to 153. Potassium is 3.6. Creatinine has fallen to 1.50 with a BUN of 30. Glucoses are mildly elevated. Transaminases are gradually fallen. Last total bilirubin was done 12/04/2016 and was measured at 15.10. H& H is 8.6/25.7. Platelets are 36,000. White count is 9100. Physical exam. Vital signs. See below Neurological. Appears to have some movement in all 4 extremities and slightly arousable. Face. Symmetrical Neck. Symmetrical. No meningismus Lymphatics. No submandibular cervical supraclavicular or epitrochlear adenopathy. Chest. Loose large airway congestion Heart. Lateral PMI Abdomen. Only rare bowel sounds. Extremities. Nothing to suggest deep venous thrombophlebitis The remainder the physical exam is negative Plan. 11/30/2006 1. Mechanical ventilation with weaning protocol and physical therapy protocol 2. Daily chest x-ray and ABGs. 3. Daily lab 4. See orders 12/01/2016 1. Mechanical ventilation and weaning protocol along with physical therapy protocol. 2. Daily chest x-ray, ABGs and lab 3. See today's note above. 12/04/2016. 1. Mechanical ventilation weaning protocol and physical therapy protocol. 2. Add Levaquin. 3. See today's note above 12/05/2016. 1. See today's note above. 2. Continue all present protocols. 12/06/2016. 1. See today's note above. 2. Fiberoptic bronchoscopy in the morning 3. Needs to be fed either after an NG tube or through an IV. 4. Mechanical ventilation weaning protocol 5. Physical therapy protocol. 6. Consult Dr. Newman and/or Dr. Noel concerning possible LTAC in the near future Exam (Progress Note) - Constitutional Vitals: Period Temp Pulse Resp BP Sys/Cotto Pulse Ox Last 24 Hr 97.0 F-98.2 F 50-88 10-25 87-123/36-73 97-100 Results - Labs CBC & BMP: 12/06/16 05:41 12/06/16 Unknown
--- NOTE | 2016-12-06 10:28 | Gastrointestinal Progress Note ---
Assessment and Plan (1) Cirrhosis of liver Status: Chronic Assessment and plan: 12/06-continues on low-dose alireza-this time. No repeat bilirubin. Transaminases trending down to near normal levels. Lab findings as below. Okay to initiate tube feedings. plan an addendum to followed by Dr. Marcus. 12/05-currently on alireza-at this time. No repeat bilirubin today. Lab findings as noted below. Plan an addendum to followed by Dr. Marcus. 12/04-off dopamine as of this morning. Findings noted as below. Plan an addendum to followed by Dr. Marcus. 12/01-no changes in current condition at present time. No overt bleeding reported. Plan an addendum to followed by Dr. Marcus. 11/30-admitted with altered mental status, history of alcoholic cirrhosis. Findings of thrombocytopenia, anemia, and hypokalemia on admission. On ventilator and sedation at this time. Received total of 3 units of packed red blood cells and to be transfused fresh frozen plasma. Plan an addendum to follow by Dr. Duarte. Current Visit: Yes Qualifiers: Hepatic cirrhosis type: alcoholic cirrhosis Gastroenterology - PN: Subj Interval history: CC: Cirrhosis Patient is seen, remains on ventilator without sedation. He will arouse to verbal stimuli at times follow commands. He is continuing on CPAP trials at present. Labs for today noted with INR to be up at 3.2, platelets are down at 36. Hemoglobin is holding at 8.6. Lactulose has been changed to every 12 hours with ammonia trended down at 39. No bilirubin noted today however AST is trending downward continually. He continues on TPN at this time. Abdomen is soft, nontender. Discussed with Dr. Marcus and vargas to initiate tube feedings at this time. ROS: Denies shortness of breath or chest pain Exam (Progress Note) - Constitutional Vitals: Period Temp Pulse Resp BP Sys/Cotto Pulse Ox Last 24 Hr 97.0 F-98.2 F 50-88 10- 87-123/36-73 97-100 - Other Additional findings: General appearance: normal weight, no acute distress - Head Head exam: Present: normal inspection, normocephalic - Eye Eye exam: Present: other (Lids and conjunctivae unremarkable). Absent: scleral icterus - ENT ENT exam: Present: normal exam, normal oropharynx - Neck Neck exam: Present: normal inspection - Respiratory Respiratory exam: Present: clear to auscultation bilaterally. Absent: rales, rhonchi, wheezes - Cardiovascular Cardiovascular exam: Present: regular rate and rhythm. Absent: diastolic murmur , JVD, systolic murmur - GI/Abdominal GI/Abdominal exam: Present: normal bowel sounds, soft. Absent: ascites, distended, mass, organomegaly, tenderness - Extremities Exam Extremities exam: Present: normal inspection, full ROM - Back Exam Back exam: Present: normal inspection - Neurological Exam Neurological exam: Present: altered - Psychiatric Psychiatric exam: Present: other - Skin Skin exam: Present: normal color, warm, dry Results - Labs CBC & BMP: 12/06/16 05:41 12/06/16 Unknown Lab Results: I have reviewed the past 24 hour labs
--- NOTE | 2016-12-06 10:48 | Hospitalist Progress Note ---
Assessment and Plan (1) End stage liver disease Status: Acute Assessment and plan: Mr Mariscal has acute on chronic hepatic failure with persistent coagulopathy, thrombocytopenia, bleeding with anemia, hyperbilirubinemia, low albumin, elevated ammonia complicated by bacteremia, UTI, and pneumonia with respiratory failure also. -continue supportive care for his acute on chronic hepatic faliure. Give Vitamin K daily for 3 days. change lactulose enemas to q12h since ammonia remains elevated. monitor H&H and platelets and transfuse prn. -continue efforts to wean from vent. -taper Benito to off. -On levaquin day 2 and Zosyn also for MSSA in blood, strep in blood, and MSSA in sputum, and enterobacter in urine. Repeat blood cultures today. -tolerating TPN. Sodium now 150. security compliance engineer to adjust TPN. place NGT and begin tube feeds. NGT ok per GI. -acute renal failure- hepatorenal syndrome- creatinine about the same as yesterday. -hyperglycemia- on TPN and steroids. conitnue SSI. If blood culture repeat are negative, consult IR for PICC line. DNR Current Visit: Yes (2) MARYBETH (acute kidney injury) Status: Acute Current Visit: Yes (3) Nutrition disorder Status: Acute Current Visit: Yes (4) Bacteremia Status: Acute Current Visit: Yes (5) Pneumonia Status: Acute Current Visit: Yes (6) Hematoma of abdominal wall Status: Acute Current Visit: No Qualifiers: Encounter type: initial encounter Qualified Code(s): S30.1XXA - Contusion of abdominal wall, initial encounter (7) Cirrhosis of liver Status: Chronic Current Visit: Yes Qualifiers: Hepatic cirrhosis type: alcoholic cirrhosis (8) Thrombocytopenia Status: Acute Current Visit: Yes (9) Coagulopathy Status: Acute Current Visit: Yes (10) Hepatic encephalopathy Status: Acute Current Visit: Yes (11) Urinary tract infection Status: Acute Current Visit: Yes (12) Anemia Status: Acute Current Visit: Yes Hospitalist: Subjective Interval history: Mr Mariscal is stable on vent. Proceeding with CPAP. I talked to Dr Morgan who anticiaptes extubation in the next few days. Referred to LTAC. Exam - Constitutional Vitals: Period Temp Pulse Resp BP Sys/Cotto Pulse Ox Last 24 Hr 97.0 F-98.2 F 50-88 10-25 87-123/36-73 97-100 General appearance: normal weight, no acute distress - Head Head exam: Present: normocephalic, atraumatic - Eye Eye exam: Present: EOMI. Absent: scleral icterus - Respiratory Respiratory exam: Present: clear to auscultation bilaterally - Cardiovascular Cardiovascular exam: Present: regular rate and rhythm - GI/Abdominal GI/Abdominal exam: Present: normal bowel sounds, soft - Extremities Exam Extremities exam: Present: edema (anasarca) Results - Labs CBC & BMP: 12/06/16 05:41 12/06/16 Unknown Lab Results: I have reviewed the past 24 hour labs
[2016-12-06] MEDS: LEVOFLOXACIN INJ 250 MG in PREMIX 1 EACH IV SCH (12:45)
[2016-12-06] MEDS: FAT EMULSION 20% 250 ML IV SCH (15:15)
[2016-12-06] MEDS: MULTIVITAMIN INJ 10 ML in AMINO ACIDS/DEXT/LYTES 5-25% 2,000 ML IV SCH (17:33)
[2016-12-06] MEDS: PHENYLEPHRINE INJ 160 MG in SODIUM CHLORIDE 0.9% 234 ML IV PRN (23:01)
[2016-12-07 03:42] LABS: ABG Base Excess 3.6 MMOL/L (-2.5-2.5); ABG HCO3 27.7 MMOL/L (20-26); ABG Oxygen Saturation 99.4 % (95-100); ABG PCO2 42.7 MM HG (35-48); ABG PH 7.427 (7.35-7.45); ABG TCO2 27.1 MMOL/L (23-27); Allen Test Positive; Pt O2 Delivery Device Ventilator
[2016-12-07] MEDS: DEXAMETHASONE 4 MG/1 ML VIAL IV SCH (04:16)
[2016-12-07] MEDS ORDERED: NOREPINEPHRINE 4 MG/4 ML VIAL IV ONE (05:54)
[2016-12-07] MEDS: INSULIN LISPRO 100 UNIT/ML SUBCUT SCH (05:59)
[2016-12-07] MEDS ORDERED: NOREPINEPHRINE 8 MG in SODIUM CHLORIDE 0.9% 242 ML IV SCH (06:00)
[2016-12-07] MEDS: PIPERACILLIN/TAZOBACTAM 3,375 MG in SODIUM CHLORIDE 0.9% 100 ML IV SCH (06:02)
[2016-12-07 06:34] LABS: Alanine Aminotransferase 43 U/L (16-61); Aspartate Amino Transferase 46 U/L (0-37); Calcium 9.4 MG/DL (8.5-10.1); Osmolality,Calculated 323.9 MOS/KG (273-304); Potassium 3.7 MMOL/L (3.5-5.1)
[2016-12-07 06:39] LABS: Phosphorous 4.2 MG/DL (2.5-4.9); Prealbumin 3.6 MG/DL (20-40)
[2016-12-07 07:03] LABS: Immature Granulocytes % 1.3 %; Immature Granulocytes Absolute 0.12 #; Lymphocytes # 1.1 10*3/uL (1.4-4.0); Lymphocytes % 11.9 % (21.2-54.2); Mean Corpuscular HGB Conc 31.9 GM/DL (32-36); Mean Corpuscular Hemoglobin 32 PG (27-34); Mean Platelet Volume 12.1 FL (9.6-12.0); Monocytes # 1.2 10*3/uL (0.11-0.8); Monocytes % 12.6 % (1.7-12.7); NRBC # 0.12 10*3/uL; Neutrophils % 74.2 % (38.7-73.9); Red Blood Count 1.44 MC/CUMM (3.8-5.5); White Blood Count 9.4 T/CUMM (4-12)
[2016-12-07 07:06] LABS: Hemoglobin 4.6 GM/DL (14.0-18.0)
[2016-12-07 07:07] LABS: Hematocrit 14.4 VOL% (42.0-52.0); Platelet Count 33 T/CUMM (130-400)
--- NOTE | 2016-12-07 07:17 | XRay Report ---
Portable chest Date: 12/07/2016 Clinical history: Ventilator Comparison: 12/06/2016 Technique: Portable AP sitting chest Findings: The heart is slightly smaller in size with the supportive devices stable in position. Reduction in the parenchymal findings at the lung bases with smaller pleural effusions. Stable mediastinum and osseous structures. Impression: Reduced atelectasis/infiltration/edema at the lung bases with smaller pleural effusions. The supportive devices remain in satisfactory position. PROCEDURE INTERPRETED AT [facility] DEPARTMENT OF RADIOLOGY Final Report Signed by: Dr. Natalie Cruz
[2016-12-07 07:21] LABS: PT Patient Result > 200.0 SECS
[2016-12-07 07:22] LABS: INR > 20.0
[2016-12-07 07:23] LABS: Partial Thromboplastin Time > 320.0 SECS (0-40)
[2016-12-07 07:35] LABS: Hypochromasia Slight; Microcytosis Slight; Platelet Estimate Decreased
[2016-12-07 08:24] VITALS: BP 41/30
--- NOTE | 2016-12-07 10:33 | Pulmonology Progress Note ---
Pulmonary - PN: Subj Interval history: Patient earlier this morning. We will sign off the case. Exam (Progress Note) - Constitutional Vitals: Period Temp Pulse Resp BP Sys/Cotto Pulse Ox Last 24 Hr 97.1 F-97.9 F 59-139 6-31 41-117/28-73 65-100 Results - Labs CBC & BMP: 12/07/16 06:35 12/07/16 05:50
--- NOTE | 2016-12-07 11:03 | Discharge Summary ---
Hospital Course - Hospital Course Hospital Course: Mr Mariscal presented with ESLD and acute hepatic failure complicaated by encephalopathy, sepsis, respiratory failure, anemia, thormbocytopenia, coagulopathy, hepato-renal syndrome. He was maximally supported for hte duration of his hospital stay. His family made him a DNR. This morning he became hypotensive, tachycardic then bradycardic and hypoxic and with his mother at his bedside. Pronounced at 7:48 am. Diagnosis - Discharge Diagnosis (1) End stage liver disease Status: Acute (2) MARYBETH (acute kidney injury) Status: Acute (3) Nutrition disorder Status: Acute (4) Bacteremia Status: Acute (5) Pneumonia Status: Acute (6) Hematoma of abdominal wall Status: Acute (7) Cirrhosis of liver Status: Chronic (8) Thrombocytopenia Status: Acute (9) Coagulopathy Status: Acute (10) Hepatic encephalopathy Status: Acute (11) Urinary tract infection Status: Acute (12) Anemia Status: Acute Discharge Plan - Discharge Data Disposition: - Discharge Medications No Action Folic Acid Tab 1 mg PO DAILY tablet Furosemide Tab [Lasix Tab] 40 mg PO DAILY #30 tablet Lactulose Liquid [Chronulac] 15 gm PO TID #473 ml Rifaximin [Xifaxan] 550 mg PO BID #60 tablet Spironolactone [Aldactone] 25 mg PO BID #30 tablet Thiamine Tab [Vitamin B1 Tab] 100 mg PO DAILY tablet Cyanocobalamin Tab [Vitamin B12 Tab] 1,000 mcg PO DAILY tablet Pantoprazole Tab [Protonix Tab] 40 mg PO DAILY #30 tablet Potassium Chloride Cap/Tab [K Dur] 20 meq PO DAILY #30 tablet - Follow Up or Referral - Forms/Instructions Exam - Constitutional Vitals: Period Temp Pulse Resp BP Sys/Cotto Pulse Ox Last 24 Hr 97.1 F-97.9 F 68-139 6-31 41-117/28-73 65-100 Discharge Results Procedures and tests throughout hospitalization: Pending Orders 12/05/16 14:09 Blood Culture Routine Labs on day of discharge: Labs from last 24 hours 12/07/16 12/07/16 12/07/16 06:49 06:35 05:50 WBC 9.4 RBC 1.44 L D Hgb 4.6 L* D Hct 14.4 L* D MCV 100.0 MCH 32 MCHC 31.9 L RDW 19.0 H Plt Count 33 L* MPV 12.1 H Neut % (Auto) 74.2 H Lymph % (Auto) 11.9 L Andrew % (Auto) 12.6 Eos % (Auto) 0.0 Baso % (Auto) 0.0 Neut # (Auto) 7.0 Lymph # (Auto) 1.1 L Andrew # (Auto) 1.2 H Eos # (Auto) 0.0 Baso # (Auto) 0.0 Immature Gran % 1.3 Nucleated RBC % 1.3 Immature Gran # 0.12 Nucleated RBCs # 0.12 Platelet Estimate Decreased Hypochromasia Slight Microcytosis Slight Morphology Comment INR > 20.0 H* PT Patient/Control Mix > 200.0 D Circ Anticoag PTT > 320.0 H* D ABG pH ABG pCO2 ABG pO2 ABG HCO3 ABG Total CO2 ABG O2 Saturation ABG Base Excess FiO2 Sodium Potassium Chloride Carbon Dioxide Anion Gap BUN Creatinine GFR Calculation BUN/Creatinine Ratio Glucose POC Glucose 193 H Calculated Osmolality Calcium Phosphorus Magnesium AST ALT Ammonia Prealbumin 12/07/16 12/07/16 12/07/16 05:50 05:50 05:50 WBC RBC Hgb Hct MCV MCH MCHC RDW Plt Count MPV Neut % (Auto) Lymph % (Auto) Andrew % (Auto) Eos % (Auto) Baso % (Auto) Neut # (Auto) Lymph # (Auto) Andrew # (Auto) Eos # (Auto) Baso # (Auto) Immature Gran % Nucleated RBC % Immature Gran # Nucleated RBCs # Platelet Estimate Hypochromasia Microcytosis Morphology Comment INR PT Patient/Control Mix Circ Anticoag PTT ABG pH ABG pCO2 ABG pO2 ABG HCO3 ABG Total CO2 ABG O2 Saturation ABG Base Excess FiO2 Sodium 158 H Potassium 3.7 Chloride 118 H Carbon Dioxide 27 Anion Gap 16.7 H BUN 37 H Creatinine 1.80 H GFR Calculation 58 BUN/Creatinine Ratio 20.00 Glucose 161 H POC Glucose Calculated Osmolality 323.9 H Calcium 9.4 Phosphorus 4.2 Magnesium 2.0 AST 46 H ALT 43 Ammonia Prealbumin 3.6 L 12/07/16 12/07/16 12/06/16 05:50 03:35 23:41 WBC RBC Hgb Hct MCV MCH MCHC RDW Plt Count MPV Neut % (Auto) Lymph % (Auto) Andrew % (Auto) Eos % (Auto) Baso % (Auto) Neut # (Auto) Lymph # (Auto) Andrew # (Auto) Eos # (Auto) Baso # (Auto) Immature Gran % Nucleated RBC % Immature Gran # Nucleated RBCs # Platelet Estimate Hypochromasia Microcytosis Morphology Comment INR PT Patient/Control Mix Circ Anticoag PTT ABG pH 7.427 ABG pCO2 42.7 ABG pO2 125.0 H ABG HCO3 27.7 H ABG Total CO2 27.1 H ABG O2 Saturation 99.4 ABG Base Excess 3.6 H FiO2 40.00 Sodium Potassium Chloride Carbon Dioxide Anion Gap BUN Creatinine GFR Calculation BUN/Creatinine Ratio Glucose POC Glucose 197 H Calculated Osmolality Calcium Phosphorus Magnesium AST ALT Ammonia 18 Prealbumin 12/06/16 12/06/16 17:14 11:43 WBC RBC Hgb Hct MCV MCH MCHC RDW Plt Count MPV Neut % (Auto) Lymph % (Auto) Andrew % (Auto) Eos % (Auto) Baso % (Auto) Neut # (Auto) Lymph # (Auto) Andrew # (Auto) Eos # (Auto) Baso # (Auto) Immature Gran % Nucleated RBC % Immature Gran # Nucleated RBCs # Platelet Estimate Hypochromasia Microcytosis Morphology Comment INR PT Patient/Control Mix Circ Anticoag PTT ABG pH ABG pCO2 ABG pO2 ABG HCO3 ABG Total CO2 ABG O2 Saturation ABG Base Excess FiO2 Sodium Potassium Chloride Carbon Dioxide Anion Gap BUN Creatinine GFR Calculation BUN/Creatinine Ratio Glucose POC Glucose 174 H 210 H Calculated Osmolality Calcium Phosphorus Magnesium AST ALT Ammonia Prealbumin Preliminary micro results at discharge 12/05/16 14:09 Blood Culture - Preliminary Blood No growth at 1 day 12/05/16 14:09 Blood Culture - Preliminary Blood No growth at 1 day DS: Provider Date of admission: 11/30/16 04:09 Primary care physician: Sonny Jack MD Attending physician on admission: Dimitri Carrera MD Consults: 11/30/16 05:58 Consult to Physician [CONS] Routine Comment: liver failure Consulting Provider: Mao Marcus Person Notified: fatumail @ dr mckeon office ([facility]) Date Notified: 11/30/16 Time Notified: 09:45 Consult to Physician [CONS] Routine Comment: vent sports management internship Provider: Mao Morgan Consult to Specialist Group: Pulmonology When should Consulting Provider be notified: In am Person Notified: [email or web address] @ [facility] ( [facility]) Date Notified: 11/30/16 Time Notified: 09:36 11/30/16 13:10 Consult to Physician [CONS] Routine Comment: elevated troponin Consulting Provider: Consult to Specialist Group: Cardiology When should Consulting Provider be notified: Now 11/30/16 13:27 Consult to Pharmacy [CONS] Routine Reason for Pharmacy Consult: Adjust Meds Renal Funct 11/30/16 18:06 Consult to Physician [CONS] Routine Comment: Consulting Provider: Dimitri Lennon When should Consulting Provider be notified: Now 12/02/16 11:08 Consult to Pharmacy [CONS] Routine Reason for Pharmacy Consult: Dose/Manage Vancomycin 12/04/16 08:51 Consult to Dietitian [CONS] Routine Reason for Dietitian: TPN/PPN-Initiate/Manage 12/06/16 09:08 Consult to Case Mgmt/Social Srvs [CONS] Routine Reason for Case Mgmt/Social Srvs: LTAC 12/06/16 10:49 Consult to Dietitian [CONS] Routine Reason for Dietitian: TF-Initiate/Manage Consult Comment: stop TPN per protocol Discharging clinician: Viji Al MD
== END 2016-12-07 07:48 | disposition expired | DRG 870 ==
LOC: EDBD → EDUNIT# → N.ED 01:59 → SUATTDRO 04:09 → N.EDINP 04:09 → N.CC 05:10
PROVIDERS: ADMIT Internal Medicine; ATTEND Internal Medicine